=== PATIENT | male | born 1965 | race Caucasian/White ===

== ENCOUNTER → 2018-09-29 15:52 | Outpatient (CLI) | payer OTHER, SELFPAY ==
--- NOTE | 2018-09-29 16:01 | XR_ITS ---
XR ribs LT min 3V w CXR1V HISTORY: Left lower rib/chest pain ITS.REASON: LEFT SIDEDCHEST WALL PAIN ORDERING PHYSICIAN: Bola Archuleta MD PATIENT AGE: 53 years Comparison: None FINDINGS: A frontal view of the chest shows no acute finding. Multiple views of the Left ribs were obtained. No fracture or dislocation. No lytic or blastic change. IMPRESSION: Negative RIBS. If pain persists, consider follow-up exam in 7-[address] with 3-D reformats.
== END ==
PROVIDERS: PCP Family Medicine; Visit Provider Family Medicine
DX: R07.89 Other chest pain (principal)
CPT/HCPCS: 71101

== ENCOUNTER → 2018-10-01 16:18 | Outpatient (CLI) | payer OTHER, SELFPAY ==
[2018-10-01 16:43] LABS: Basophils # 0.1 K/mm3 (0-0.2); Eosinophils # 0.4 K/mm3 (0.0-0.4); Eosinophils % 4.4 % (0.1-12.0); Hematocrit 47.4 % (42.0-52.0); Hemoglobin 15.8 g/dL (14.1-18.0); Lymphocytes # 2.7 K/mm3 (0.7-4.5); Lymphocytes % 31.9 % (10-50); Mean Corpuscular HGB Conc 33.4 g/dL (31.8-35.4); Mean Corpuscular Hemoglobin 27.9 pg (27.0-31.2); Mean Corpuscular Volume 83.6 fl (80-94); Mean Platelet Volume 8.1 fl (7.4-10.4); Monocytes # 0.4 K/mm3 (0.1-1.0); Monocytes % 4.8 % (1.7-9.3); Neutrophils # 4.9 K/mm3 (1.8-7.8); Platelet Count 230 K/mm3 (142-424); Red Blood Count 5.67 M/mm3 (4.60-6.20); Red Cell Distribution Width 13.6 % (11.5-17.5); White Blood Count 8.4 K/mm3 (4.8-10.8)
[2018-10-01 18:52] LABS: Anion Gap 18.6 mEq/L (5-15); Blood Urea Nitrogen 21 mg/dL (7-18); CKMB Relative Index 1.6 U/L (0-4.0); Calcium 9.1 mg/dL (8.5-10.1); Carbon Dioxide 24 mmol/L (21.0-32.0); Chloride 102 mmol/L (98-107); Creatine Kinase 218 U/L (39-308); Creatine Kinase MB 3.5 ng/ml (0.0-3.6); Creatinine,Serum 1.07 mg/dL (0.70-1.30); Estimated Glomerular Filt Rate 72 ml/min (>60); GFR (African American) 87 ML/MIN (>60); Glucose 124 mg/dL (74-106); Potassium 3.6 mmoL/L (3.5-5.1); Sodium 141 mmol/L (136-145); Troponin I < 0.02 ng/ml (0.00-0.06)
== END ==
PROVIDERS: Visit Provider Family Medicine
DX: R07.9 Chest pain, unspecified (principal)
CPT/HCPCS: 36415; 80048; 82550; 82553; 84484; 85025; 93005

== ENCOUNTER → 2018-10-05 13:54 | Outpatient (CLI) | payer OTHER, SELFPAY ==
--- NOTE | 2018-10-05 14:12 | CT_ITS ---
CT angio chest HISTORY: Left-sided chest pain ITS.REASON: CHEST PAIN ORDERING PHYSICIAN: Bola Archuleta MD PATIENT AGE: 53 years COMPARISON: None TECHNIQUE: Axial images obtained following the administration of 75 mL of Optiray 350. Sagittal, and coronal reformatted images are also generated and reviewed. All CT scans at the facility use one or more dose reduction, viz: automated exposure control, ma/kV adjustment per patient size (including targeted exams where dose is matched to indication, i.e. head), or iterative reconstruction technique. FINDINGS: No evidence of pulmonary embolus or aortic aneurysm or dissection. No mediastinal or hilar mass is apparent. No evidence of pericardial effusion. No lobar consolidation or collapse. There is a 6 mm noncalcified nodule in the left lower lobe posterior laterally axial image #75. No central lesions evident. There is evidence of old granulomatous disease with calcified granuloma in the right lower lobe. There is a destructive lesion right paraspinal mass involving the costovertebral junction of the right fifth rib and thoracic vertebra. This mass measures approximately 5 x 3.5 x 3.4 cm and is causing destruction of the right aspect of T4 and T5. The mass does involve the anterolateral epidural space on the right at T5 and extends laterally to involve the medial aspect of the right fifth rib.. No other destructive bony lesions are evident. There are mild degenerative changes in the thoracic spine. There does appear to be a nondisplaced fracture involving the left ninth. Laterally. Upper abdominal images show vicarious excretion of contrast by the gallbladder. IMPRESSION: 1. Right paraspinal mass with bony destruction involving T4 and T5 at the medial aspect of the right fifth rib. This lesion is epicentered at the right or T5 neural foramen. The lesion is fairly well-circumscribed with some ill-definition of the medial borders. A schwannoma/nerve sheath tumor is considered. A more malignant process such as metastatic disease or plasmacytoma is also considered. Recommend MRI of the thoracic spine without and with contrast for further evaluation. 2. Nondisplaced left ninth rib fracture 3. 6 mm noncalcified nodule left lower lobe. Recommend 6 month follow-up
== END ==
PROVIDERS: PCP Family Medicine; Visit Provider Family Medicine
DX: R07.9 Chest pain, unspecified (principal)
CPT/HCPCS: 71275; Q9967

== ENCOUNTER → 2018-10-12 14:59 | Outpatient (CLI) | payer OTHER, SELFPAY ==
--- NOTE | 2018-10-12 15:01 | MR_ITS ---
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 COMPARISON : FINDINGS There is lobulated destructive mass at the right paraspinal region at T4 & T5- This mass involves the right aspect of both the T4 and T5 vertebral bodies and extends into the pedicles of each of these levels.. At T5 the mass continues to involve the right lamina and right costo vertebral junction- . The mass involves the medial portion of the right fifth rib-it appears to expand the structures Overall on today's MR study the mass measures up to 6 cm maximum oblique AP dimension times up to 3.6 cm maximum transverse dimension at T5. On sagittal images it measures up to 4 cm height.. Mass does involve the right neural foramen at T4/5. The mass extends through the right lateral epidural space from T4 to T5., Where it does slightly indents the right aspect thecal sac on right at this level. . modest enhancement of this mass and other masses described below on the postcontrast images. With slightly enhancement intensity than than would've expected, but this may reflect timing of bolus. . There are other lesions in the spine. Which increase concern regarding possible metastatic disease rather than schwannoma, neurofibroma.. These areas described below are low signal on T1 and high signal on T2 with mild enhancement. At T11: is additional up to 2 cm similar signal lesion at the anterior right aspect of T11 vertebral body... Mild enhancement. At T6: There is a 1 cm lesion seen on the anterior left aspect of T6 vertebral body. Mild enhancement T10 to the right.: Tiny Lesion at the junction of vertebral body and right pedicle at the T10 level questionable small metastatic deposit. This measures 5 mm size. Most intense enhancement is seen here T-spine vertebra demonstrate no no compression fractures. The slight decreased height at T10 believe is most likely congenital feature. Minimal Schmorl's node formation. No disc herniation or protrusion. The thoracic cord normal caliber and signal with no abnormal areas of enhancement. There are some subtle decreased signal anterior superior aspect of T1 to both the right and left but this may merely reflect some sclerosis here. Doubt of significance after reviewing CT as well. No axial images through this region. IMPRESSION 1. Large destructive Right paraspinal mass involving the right T4 and T5 vertebral bodies and extending into adjacent structures as detailed in text. (This mass also involves right pedicle of T4 and T5; as well as right right lamina, right transverse process & right costophrenic junction at T5 as well as medial right fifth rib..) The mass is seen extending into right L4/5 neural foramen & extending to the right epidural space to slightly indents the right aspect thecal sac T4/5 2. Today's MR reveals other lesions at the spine: T11.: There is 2 cm lesion at the anterior right aspect of T11 vertebral body T6: There is 1 cm lesion anterior left aspect of T6 vertebral body T10: tiny 5 mm lesion at junction of vertebral body and right pedicle Only mild/moderate enhancement is seen at these areas, somewhat less than that typically would expect for a metastatic process. However given the multiple vertebral involvementsuggest PET CT to further evaluate
--- NOTE | 2018-10-12 15:06 | XR_ITS ---
XR orbit bilateral min 4V Ordering Physician: Bola Archuleta MD Patient Age: 53 years: Male HISTORY: ITS.REASON: RULE OUT METAL FOREIGN BODY FOR MRI Metal in eye prior TECHNIQUE: [place] with patient looking up and looking down. COMPARISON :No previous studies of head FINDINGS The orbits appear within normal limits with no radiopaque foreign body either orbit. Patient cleared for MRI. The visualized. This is an maxillary sinuses appear fairly clear with with no prominent findings. Mastoid air cells clear as well. IMPRESSION. No radiopaque foreign body either orbit. Patient cleared for MRI.
--- NOTE | 2018-10-12 16:57 | HMH.ITSHM ---
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 []ASPIRIN NABUMETONE JANUMET GLIMEPIRIDE PRAVASTATIN AMLODIPINE POTASSIUM CHLORIDE HYDROCHLOROTHIAZIDE FARXIGA VITAMIN D3 MULTI VITAMIN
== END ==
PROVIDERS: PCP Family Medicine; Visit Provider Family Medicine
DX: D43.4 Neoplasm of uncertain behavior of spinal cord (principal); H05.53 Retained (old) foreign body following penetrating wound of bilateral orbits
CPT/HCPCS: 70200; 72157; A9576

== ENCOUNTER → 2018-10-23 17:41 | Outpatient (CLI) | payer OTHER, SELFPAY ==
[2018-10-23 18:18] LABS: Activated Partial Thrombo Time 25.3 seconds (23.6-34.0); INR 1.04 (0.9-1.1); Prothrombin Time 10.7 seconds (9.4-11.8)
[2018-10-23 18:22] LABS: Basophils # 0.1 K/mm3 (0-0.2); Basophils % 1.1 % (0.1-2.0); Eosinophils # 0.4 K/mm3 (0.0-0.4); Eosinophils % 5.3 % (0.1-12.0); Hematocrit 47.2 % (42.0-52.0); Hemoglobin 16.6 g/dL (14.1-18.0); Lymphocytes # 2.7 K/mm3 (0.7-4.5); Lymphocytes % 31.6 % (10-50); Mean Corpuscular HGB Conc 35.2 g/dL (31.8-35.4); Mean Corpuscular Hemoglobin 29.7 pg (27.0-31.2); Mean Corpuscular Volume 84.2 fl (80-94); Mean Platelet Volume 7.8 fl (7.4-10.4); Monocytes # 0.5 K/mm3 (0.1-1.0); Monocytes % 5.3 % (1.7-9.3); Neutrophils # 4.8 K/mm3 (1.8-7.8); Neutrophils % 56.7 % (37.0-80.0); Platelet Count 257 K/mm3 (142-424); Red Blood Count 5.61 M/mm3 (4.60-6.20); Red Cell Distribution Width 13.7 % (11.5-17.5); White Blood Count 8.4 K/mm3 (4.8-10.8)
[2018-10-23 18:31] LABS: Blood Urea Nitrogen 32 mg/dL (7-18); Creatinine,Serum 1.09 mg/dL (0.70-1.30); Estimated Glomerular Filt Rate 70 ml/min (>60); GFR (African American) 85 ML/MIN (>60)
== END ==
PROVIDERS: Visit Provider Family Medicine
DX: Z01.818 Encounter for other preprocedural examination (principal)
CPT/HCPCS: 36415; 82565; 84520; 85025; 85610; 85730

== ENCOUNTER → 2018-10-30 09:48 | Outpatient (CLI) | payer OTHER, SELFPAY ==
--- NOTE | 2018-10-30 09:56 | CT_ITS ---
CT chest wo con, CT biopsy guided needle HISTORY: Right paraspinal mass with bony destructive lesion of T4 and T5 and the right fifth rib ITS.REASON: BIOPSY ORDERING PHYSICIAN: Bola Archuleta MD PATIENT AGE: 53 years COMPARISON: 10/05/2018 Technique: Axial images obtained . All CT scans at the facility use one or more dose reduction, viz: automated exposure control, ma/kV adjustment per patient size (including targeted exams where dose is matched to indication, i.e. head), or iterative reconstruction technique FINDINGS: Prebiopsy CT chest is performed. Once again there is noted a destructive lesion involving the right fifth rib as well as the right aspect of T4 and T5 vertebral body. This is suspicious for malignancy and deemed to be accessible for percutaneous biopsy on the prebiopsy images. The lesion does appear to be extending into the epidural space on the left and anterior to the spinal cord. TECHNIQUE: The patient was placed in the prone position and the lesion localized by routine technique. Timeout was performed. Under aseptic conditions and local anesthesia with buffered lidocaine and 18-gauge introducer needle was inserted. Following this 2 core biopsies were obtained with an indwelling 19-gauge Jesus-Cut needle. There was some bleeding noted on the second biopsy. Good cores were obtained and the biopsy was discontinued. The patient tolerated the procedure well without evidence of immediate complication and left the radiology suite in stable condition. Postbiopsy CT showed no evidence of pneumothorax or paraspinal hematoma. Postbiopsy radiograph showed no evidence of pneumothorax. Pathology: Plasmacytoma. IMPRESSION: Uneventful and successful CT directed biopsy of the mass at T4 and T5 showing a plasmacytoma.
[2018-10-30 10:22] LABS: POC Glucose,Bedside 137 (70-110)
--- NOTE | 2018-10-30 11:32 | XR_ITS ---
XR chest 2V HISTORY: Follow-up biopsy, evaluate for possible pneumothorax ORDERING PHYSICIAN: Bola Archuleta MD PATIENT AGE: 53 years COMPARISON: None FINDINGS: PA and lateral expiration images are obtained showing no evidence of pneumothorax. Vascular crowding is present in the lung bases. Unremarkable cardiovascular structures. IMPRESSION: No acute finding, no evidence of pneumothorax
--- NOTE | 2018-10-30 15:04 | XR_ITS ---
XR chest 2V 1509 hours HISTORY: Follow-up biopsy, evaluate for possible pneumothorax ORDERING PHYSICIAN: Bola Archuleta MD PATIENT AGE: 53 years COMPARISON: Same day FINDINGS: PA and lateral expiration images are obtained showing no evidence of pneumothorax. Vascular crowding is present in the lung bases. Unremarkable cardiovascular structures. IMPRESSION: No acute finding, no evidence of pneumothorax
== END ==
PROVIDERS: PCP Family Medicine; Visit Provider Family Medicine
DX: D48.0 Neoplasm of uncertain behavior of bone and articular cartilage (principal)
CPT/HCPCS: 10009; 71046; 71250; 77012; 82962

== ENCOUNTER → 2018-11-05 16:54 | Outpatient (CLI) | payer OTHER, SELFPAY ==
[2018-11-05 18:19] LABS: Basophils # 0.1 K/mm3 (0-0.2); Basophils % 1.2 % (0.1-2.0); Eosinophils # 0.5 K/mm3 (0.0-0.4); Eosinophils % 5.2 % (0.1-12.0); Hematocrit 45.9 % (42.0-52.0); Hemoglobin 15.6 g/dL (14.1-18.0); Lymphocytes # 2.8 K/mm3 (0.7-4.5); Lymphocytes % 29.5 % (10-50); Mean Corpuscular HGB Conc 33.9 g/dL (31.8-35.4); Mean Corpuscular Hemoglobin 28.5 pg (27.0-31.2); Mean Corpuscular Volume 84.2 fl (80-94); Mean Platelet Volume 8.1 fl (7.4-10.4); Monocytes # 0.5 K/mm3 (0.1-1.0); Monocytes % 5.7 % (1.7-9.3); Neutrophils # 5.6 K/mm3 (1.8-7.8); Neutrophils % 58.4 % (37.0-80.0); Platelet Count 239 K/mm3 (142-424); Red Blood Count 5.45 M/mm3 (4.60-6.20); Red Cell Distribution Width 13.6 % (11.5-17.5); White Blood Count 9.5 K/mm3 (4.8-10.8)
[2018-11-09 13:10] LABS: Albumin 3.8 g/dL (2.9-4.4); Alpha-1-Globulin 0.2 g/dL (0.0-0.4); Alpha-2-Globulin 0.7 g/dL (0.4-1.0); Gamma Globulin 1.1 g/dL (0.4-1.8); Protein, Total 6.9 g/dL (6.0-8.5)
[2018-11-10 15:47] LABS: Albumin, U 4.4 % (.); Alpha-1-Globulin, U 0.7 % (.); Alpha-2-Globulin, U 4.7 % (.); Beta Globulin, U 86.3 % (.); Gamma Globulin, U 3.8 % (.); Protein,Total,Urine 41.7 mg/dL (Not Estab.)
[2018-11-11 07:56] LABS: M-Spike, % Comment: % (Not Observed)
== END ==
PROVIDERS: Visit Provider Family Medicine
DX: C90.20 Extramedullary plasmacytoma not having achieved remission (principal)
CPT/HCPCS: 36415; 84155; 84156; 84165; 84166; 85025

== ENCOUNTER 2019-02-10 05:56 | Emergency (ER) | payer OTHER, SELFPAY ==
[2019-02-10 06:03] VITALS: BP 163/80; PULSE 100; RESP 18; TEMP 36.8; O2SAT 94; BMI 35.9
--- NOTE | 2019-02-10 06:10 | XR_ITS ---
XR chest 2V HISTORY: ITS.REASON: cough ORDERING PHYSICIAN: Kaushal Mejia MD PATIENT AGE: 53 years COMPARISON: 10/30/2018 FINDINGS: The cardiomediastinal silhouette and pulmonary vascularity are within normal limits. On the lateral view there is increased density in the lung base along the thoracic spine region and anterior to the thoracic spine consistent with an area of atelectasis which may be on the right. The patient has a known lesion at T4-T5 which is below limits of resolution on the radiograph. No lobar consolidation or collapse. IMPRESSION: Atelectatic changes in the right lung base posteriorly
--- NOTE | 2019-02-10 06:17 | XR_ITS ---
EXAM: XR thoracic spine 3V HISTORY: Back pain, plasmacytoma of T4-T5 ITS.REASON: pain Comparison: None FINDINGS: Normal alignment. No acute fracture or dislocation. Patient has a known lytic lesion at T4-T5 as seen on previous MRI and CT. This is below limits of resolution on the radiograph and would be better evaluated with MRI. Degenerative changes are present in the thoracic spine. IMPRESSION: Degenerative change, no acute fracture. The destructive lesion seen on previous CT and MRI at T4 and T5 is below limits of resolution on the radiograph and would be better evaluated with CT or MRI if clinically desired
[2019-02-10 06:22] LABS: Basophils # 0.1 K/mm3 (0-0.2); Basophils % 0.6 % (0.1-2.0); Eosinophils # 0.3 K/mm3 (0.0-0.4); Eosinophils % 3.3 % (0.1-12.0); Hematocrit 43.9 % (42.0-52.0); Hemoglobin 14.3 g/dL (14.1-18.0); Lymphocytes # 1.2 K/mm3 (0.7-4.5); Lymphocytes % 12.3 % (10-50); Mean Corpuscular HGB Conc 32.6 g/dL (31.8-35.4); Mean Corpuscular Hemoglobin 27.4 pg (27.0-31.2); Mean Corpuscular Volume 84.1 fl (80-94); Mean Platelet Volume 7.9 fl (7.4-10.4); Monocytes # 0.9 K/mm3 (0.1-1.0); Monocytes % 9.4 % (1.7-9.3); Neutrophils % 74.4 % (37.0-80.0); Platelet Count 145 K/mm3 (142-424); Red Blood Count 5.22 M/mm3 (4.60-6.20); Red Cell Distribution Width 14.2 % (11.5-17.5); White Blood Count 9.3 K/mm3 (4.8-10.8)
[2019-02-10 06:42] LABS: Alanine Aminotransferase 40 U/L (12-78); Albumin Level 2.8 gm/dL (3.4-5.0); Albumin/Globulin Ratio 0.7 (1.1-1.8); Alkaline Phosphatase 97 U/L (46-116); Anion Gap 12.8 mEq/L (5-15); Aspartate Amino Transferase 19 U/L (15-37); Bilirubin,Total 0.7 mg/dL (0.2-1.0); Blood Urea Nitrogen 14 mg/dL (7-18); Calcium 8.2 mg/dL (8.5-10.1); Carbon Dioxide 26 mmol/L (21.0-32.0); Chloride 102 mmol/L (98-107); Creatinine Clearance Estimated 135 mL/min (50-200); Creatinine,Serum 1.05 mg/dL (0.70-1.30); Estimated Glomerular Filt Rate 73 ml/min (>60); GFR (African American) 89 ML/MIN (>60); Globulin 4.1 gm/dl (1.3-3.2); Glucose 195 mg/dL (74-106); Potassium 3.8 mmoL/L (3.5-5.1); Sodium 137 mmol/L (136-145); Total Protein,Serum 6.9 gm/dL (6.4-8.2)
--- NOTE | 2019-02-10 06:52 | HMH.EDGENADL ---
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 Disposition: Home, Self-Care Condition on Discharge: Fair Instructions: DI for Cough -- Adult Additional Instructions: fluids and see pcp for follow up Prescriptions: predniSONE [Prednisone 20mg Tab] 20 mg PO BID #10 tab Benzonatate [Tessalon Perle 100mg Cap] 100 mg PO TID #30 cap Azithromycin [Zithromax 250mg tab] 250 mg PO DIRECTED #6 tab Referrals: Bola Archuleta MD [Primary Care Provider] - - Critical Care Critical Care Time: No Attestation: On 02/10/19, the high probability of a clinically significant, sudden or life threatening deterioration of the following system(s) required my full and direct attention, intervention and personal management. The time I documented below is in addition to time spent performing reported procedures but includes the following listed in this critical care notation. Medical Decision Making - Medical Records Medical records reviewed: Yes: I reviewed the patient's medical records. - Zeyad Inquiry Pt receiving controlled substance: No Vital Signs: 02/10/19 06:03 Temperature 98.3 F Temperature Source Oral Pulse Rate [Right] 100 H Respiratory Rate 18 Blood Pressure [Right Arm] 163/80 H Blood Pressure Mean [Right Arm] 107 Blood Pressure Source [Right Arm] Automatic Cuff Blood Pressure Position [Right Arm] Sitting 02 Sat by Pulse Oximetry 94 L Oxygen Delivery Method Room Air - Lab Data Lab results reviewed: Yes: I reviewed the patient's lab results. Lab Results 02/10/19 06:16: WBC 9.3, RBC 5.22, Hgb 14.3, Hct 43.9, MCV 84.1, MCH 27.4, MCHC 32.6, RDW 14.2, Plt Count 145, MPV 7.9, Neut % (Auto) 74.4, Lymph % (Auto) 12.3, [place] % (Auto) 9.4 H, Eos % (Auto) 3.3, Baso % (Auto) 0.6, Neut # (Auto) 7.0, Lymph # (Auto) 1.2, [place] # (Auto) 0.9, Eos # (Auto) 0.3, Baso # (Auto) 0.1 02/10/19 06:16: Sodium 137, Potassium 3.8, Chloride 102, Carbon Dioxide 26, Anion Gap 12.8, BUN 14, Creatinine 1.05, Estimated Creat Clear 135, Estimated GFR 73, Est GFR ( Amer) 89, Glucose 195 H, Calcium 8.2 L, Total Bilirubin 0.7, AST 19, ALT 40, Alkaline Phosphatase 97, Total Protein 6.9, Albumin 2.8 L, Globulin 4.1 H, Albumin/Globulin Ratio 0.7 L Result diagrams: 02/10/19 06:16 02/10/19 06:16 Orders (Tests/Meds): ED MEDICATIONS Generic Name Dose Route Start Last Admin Trade Name Freq PRN Reason Stop Dose Admin Sodium Chloride 1,000 mls @ 999 mls/hr 02/10/19 06:15 02/10/19 06:16 Sod Chlor 0.9% 1000ml Bag IV 02/10/19 07:15 999 mls/hr .Q1H1M STEPHANI Administration Discontinued Medications Generic Name Dose Route Start Last Admin Trade Name Freq PRN Reason Stop Dose Admin Ketorolac Tromethamine 30 mg 02/10/19 06:10 02/10/19 06:16 Toradol 30mg/Ml Vial IV 02/10/19 06:11 30 mg ONCE ONE Administration Methylprednisolone Sodium Succinate 125 mg 02/10/19 06:10 02/10/19 06:16 Solu-Medrol 125mg/2ml Vial IV 02/10/19 06:11 125 mg ONCE ONE Administration - Radiology Data #1 Image(s): Chest, T-Spine Image Reviewed: Yes I reviewed the patient's radiology image, Yes I reviewed the patient's radiology image w/the ED provider Preliminary Findings: No Fracture Seen General Adult HPI - General Chief complaint: PAIN Stated complaint: cough,cancer on spine,numbness in leg Time Seen by Provider: 02/10/19 06:15 Mode of Arrival: Ambulatory Source of Information: Patient, Medical Record Limitations: No Limitations Description of Symptoms (Recalled from ER Triage Doc. 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
--- NOTE | 2019-02-10 07:10 | PC.NURSE ---
noted patient to be laying in bed,. alert, oriented, responsive. no acute distress noted.
--- NOTE | 2019-02-10 07:16 | ED_ITS ---
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 Disposition: Home, Self-Care Condition on Discharge: Fair Instructions: DI for Cough -- Adult Additional Instructions: fluids and see pcp for follow up Prescriptions: predniSONE [Prednisone 20mg Tab] 20 mg PO BID #10 tab Benzonatate [Tessalon Perle 100mg Cap] 100 mg PO TID #30 cap Azithromycin [Zithromax 250mg tab] 250 mg PO DIRECTED #6 tab Referrals: Bola Archuleta MD [Primary Care Provider] - - Critical Care Critical Care Time: No Attestation: On 02/10/19, the high probability of a clinically significant, sudden or life threatening deterioration of the following system(s) required my full and direct attention, intervention and personal management. The time I documented below is in addition to time spent performing reported procedures but includes the following listed in this critical care notation. Medical Decision Making - Medical Records Medical records reviewed: Yes: I reviewed the patient's medical records. - Zeyad Inquiry Pt receiving controlled substance: No Vital Signs: 02/10/19 06:03 Temperature 98.3 F Temperature Source Oral Pulse Rate [Right] 100 H Respiratory Rate 18 Blood Pressure [Right Arm] 163/80 H Blood Pressure Mean [Right Arm] 107 Blood Pressure Source [Right Arm] Automatic Cuff Blood Pressure Position [Right Arm] Sitting 02 Sat by Pulse Oximetry 94 L Oxygen Delivery Method Room Air - Lab Data Lab results reviewed: Yes: I reviewed the patient's lab results. Lab Results 02/10/19 06:16: WBC 9.3, RBC 5.22, Hgb 14.3, Hct 43.9, MCV 84.1, MCH 27.4, MCHC 32.6, RDW 14.2, Plt Count 145, MPV 7.9, Neut % (Auto) 74.4, Lymph % (Auto) 12.3, [place] % (Auto) 9.4 H, Eos % (Auto) 3.3, Baso % (Auto) 0.6, Neut # (Auto) 7.0, Lymph # (Auto) 1.2, [place] # (Auto) 0.9, Eos # (Auto) 0.3, Baso # (Auto) 0.1 02/10/19 06:16: Sodium 137, Potassium 3.8, Chloride 102, Carbon Dioxide 26, Anion Gap 12.8, BUN 14, Creatinine 1.05, Estimated Creat Clear 135, Estimated GFR 73, Est GFR ( Amer) 89, Glucose 195 H, Calcium 8.2 L, Total Bilirubin 0.7, AST 19, ALT 40, Alkaline Phosphatase 97, Total Protein 6.9, Albumin 2.8 L, Globulin 4.1 H, Albumin/Globulin Ratio 0.7 L Result diagrams: 02/10/19 06:16 02/10/19 06:16 Orders (Tests/Meds): ED MEDICATIONS Generic Name Dose Route Start Last Admin Trade Name Freq PRN Reason Stop Dose Admin Sodium Chloride 1,000 mls @ 999 mls/hr 02/10/19 06:15 02/10/19 06:16 Sod Chlor 0.9% 1000ml Bag IV 02/10/19 07:15 999 mls/hr .Q1H1M STEPHANI Administration Discontinued Medications Generic Name Dose Route Start Last Admin Trade Name Freq PRN Reason Stop Dose Admin Ketorolac Tromethamine 30 mg 02/10/19 06:10 02/10/19 06:16 Toradol 30mg/Ml Vial IV 02/10/19 06:11 30 mg ONCE ONE Administration Methylprednisolone Sodium Succinate 125 mg 02/10/19 06:10 02/10/19 06:16 Solu-Medrol 125mg/2ml Vial IV 02/10/19 06:11 125 mg ONCE ONE Administration
--- NOTE | 2019-02-10 07:38 | PC.NURSE ---
dr tate exited room stating he can go, he is not happy with the care he received and doesn't understand why he would have to be delayed in care for a stroke alert in the next room ; dr tate further stated he himself was waiting on a reading by dr rousseau on the patient's xrays and tried to explain that to him, but patient was adamant he was being neglected.
--- NOTE | 2019-02-10 07:43 | INFXCTL.NOTE ---
pt approached desk demanding his prescriptions. pt rude with staff, stating he was sweating and no one cared. was advised he was afebrile during last assessment. pt laughs and says oh ok , very sarcastic. stated thanks for what care i did receive , was politely told he was welcome and he made his exit out the registration.
[2019-02-10 07:50] VITALS: BP 142/70; PULSE 71; RESP 17; TEMP 36.6; O2SAT 97
== END 2019-02-10 07:41 | disposition home or self-care (01) ==
PROVIDERS: Emergency Provider Emergency Medicine; PCP Family Medicine
DX: J20.9 Acute bronchitis, unspecified (principal); C90.30 Solitary plasmacytoma not having achieved remission; E11.9 Type 2 diabetes mellitus without complications; Z79.84 Long term (current) use of oral hypoglycemic drugs; I10 Essential (primary) hypertension; E78.5 Hyperlipidemia, unspecified
CPT/HCPCS: 71046; 72072; 80053; 85025; 96365; 96375; 99283

== ENCOUNTER 2020-10-16 08:39 | Inpatient (IN) | payer OTHER, SELFPAY ==
[2020-10-16] VITALS (10 sets, daily range): BP systolic 109–145; BP diastolic 63–89; PULSE 74–116; RESP 18–20; TEMP 36.8–36.9; O2SAT 88–98; BMI 38.6; BMI 36.3; BMI 38.5
--- NOTE | 2020-10-16 09:12 | XR_ITS ---
PROCEDURE: XR CHEST PORTABLE CLINICAL HISTORY: cough Cough COMPARISON: CR CXR2V XR chest 2V from 10/30/2018 CR CXR2V XR chest 2V from 10/30/[address] chest wo con from 10/30/2018 CR Chest from 02/10/2019 FINDINGS: There are low lung volumes. Unremarkable cardiovascular structures. Vague density is present in the left mid lung and could be due to vascular crowding and summation artifact. Cannot exclude patchy infiltrate. There is some increased density overlying the T4 and T5 vertebral body which could be due to prior vertebroplasty. IMPRESSION: Low lung volumes with possible left perihilar infiltrate or atelectatic change Dictated by: Israel Flores MD 10/16/2020 10:02 Israel Flores MD in [facility] 10/16/2020 10:02
--- NOTE | 2020-10-16 09:28 | HMH.EDGENADL ---
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 The time I documented below is in addition to time spent performing reported procedures but includes the following listed in this critical care notation. Medical Decision Making - Medical Records Medical records reviewed: Yes: I reviewed the patient's medical records. - Zeyad Inquiry Pt receiving controlled substance: No Vital Signs: 10/16/20 08:41 10/16/20 09:17 10/16/20 09:30 Temperature 98.5 F Temperature Source Oral Pulse Rate [Left Radial] 116 H 109 H 98 H Respiratory Rate 20 20 20 Blood Pressure [Right Arm] 145/89 H 145/89 H 123/68 Blood Pressure Mean [Right Arm] 107 107 86 Blood Pressure Source [Right Arm] Automatic Cuff Blood Pressure Position [Right Arm] Sitting 02 Sat by Pulse Oximetry 91 L 88 L 98 Oxygen Delivery Method Room Air Nasal Cannula Oxygen Flow Rate (LPM) 3 10/16/20 10:00 10/16/20 10:30 10/16/20 11:30 Temperature Temperature Source Pulse Rate [Left Radial] 108 H 101 H 89 Respiratory Rate 20 18 20 Blood Pressure [Right Arm] 119/75 120/63 109/67 L Blood Pressure Mean [Right Arm] 89 82 81 Blood Pressure Source [Right Arm] Blood Pressure Position [Right Arm] 02 Sat by Pulse Oximetry 94 L 90 L 93 L Oxygen Delivery Method Oxygen Flow Rate (LPM) - Lab Data Lab Results 10/16/20 09:13: Specimen Source Right radial, O2 % 3 lpm nc, ABG pH 7.47 H, ABG pCO2 28.8 L, ABG pO2 61.4 L, ABG HCO3 20.4 L, ABG Total CO2 21.3 L, ABG O2 Saturation 92, ABG Base Excess -3.3 L, [place] Test Acceptable 10/16/20 09:25: WBC 4.1 L, RBC 4.82, Hgb 14.1, Hct 42.0, MCV 87.0, MCH 29.2, MCHC 33.5, RDW 15.1, Plt Count 128 L, MPV 8.4, Neut % (Auto) 79.9, Lymph % (Auto) 12.2, [place] % (Auto) 7.3, Eos % (Auto) 0.1, Baso % (Auto) 0.5, Neut # (Auto) 3.3, Lymph # (Auto) 0.5 L, [place] # (Auto) 0.3, Eos # (Auto) 0.0, Baso # (Auto) 0.0 10/16/20 09:25: Sodium 133 L, Potassium 3.0 L, Chloride 100, Carbon Dioxide 22, Anion Gap 14.0, BUN 16, Creatinine 0.90, Estimated Creat Clear 166, Estimated GFR 87, Est GFR ( Amer) 105, Glucose 440 H*, Calcium 8.3 L, Total Bilirubin 0.7, AST 49, ALT 37, Alkaline Phosphatase 71, Total Protein 7.8, Albumin 3.9, Globulin 3.9 H, Albumin/Globulin Ratio 1.0 L, Acetone Level Moderate 10/16/20 11:15: POC Glucose 347 H* Result diagrams: 10/16/20 09:25 10/16/20 09:25 Orders (Tests/Meds): ED MEDICATIONS Discontinued Medications Generic Name Dose Route Start Last Admin Trade Name Freq PRN Reason Stop Dose Admin Acetaminophen 975 mg 10/16/20 09:14 10/16/20 09:42 Acetaminophen 325mg Tab PO 10/16/20 09:15 975 mg ONCE ONE Administration Dexamethasone Sodium Phosphate 10 mg 10/16/20 09:14 10/16/20 09:42 Dexamethasone 4mg/Ml 5ml Mdv IV 10/16/20 09:15 10 mg ONCE ONE Administration Sodium Chloride 1,000 mls @ 999 mls/hr 10/16/20 09:15 10/16/20 09:40 Sod Chlor 0.9% 1000ml Bag IV 10/16/20 10:15 999 mls/hr .Q1H1M STEPHANI Administration Iopamidol 70 ml 10/16/20 10:56 10/16/20 10:57 Iopamidol-370 (76%);100ml Bottle IV 10/16/20 10:57 70 ml ONCE ONE Administration Sodium Chloride 10 ml 10/16/20 10:56 10/16/20 10:57 Sodium Chloride 0.9% 10ml Syr (Rad Only) IV 10/16/20 10:57 10
[2020-10-16 09:34] LABS: Adenovirus,PCR Not Detected (NotDetected); Bordetella Pertussis Not Detected (NotDetected); Chlamydophila Pneumoniae, PCR Not Detected (NotDetected); Coronavirus 229E Not Detected (NotDetected); Coronavirus NL63 Not Detected (NotDetected); Coronavirus OC43 Not Detected (NotDetected); Coronovirus HKU1,PCR Not Detected (NotDetected); Human Metapneumovirus Not Detected (NotDetected); Influenza A, PCR Not Detected (NotDetected); Influenza AH1, 2009 Not Detected (NotDetected); Influenza AH1, PCR Not Detected (NotDetected); Influenza AH3,PCR Not Detected (NotDetected); Influenza B, PCR Not Detected (NotDetected); Mycoplasma Pneumoniae, PCR Not Detected (NotDetected); Parainfluenza 1, PCR Not Detected (NotDetected); Parainfluenza 2, PCR Not Detected (NotDetected); Parainfluenza 3, PCR Not Detected (NotDetected); Parainfluenza 4, PCR Not Detected (NotDetected); Respiratory Syncytial Virus Not Detected (NotDetected); Rhinovirus/Enterovirus Not Detected (NotDetected)
[2020-10-16 09:37] LABS: ABG Base Excess -3.3 mmol/L (-2.4-2.3); ABG HCO3 20.4 mmhg (22.0-26.0); ABG Oxygen Saturation 92 % (90-100); ABG PCO2 28.8 mmhg (35.0-45.0); ABG PH 7.47 mmol/L (7.35-7.45); ABG PO2 61.4 mmhg (80-100); ABG TCO2 21.3 mmhg (23-27)
[2020-10-16 09:40] LABS: Allen's Test Acceptable; Oxygen 3 LPM NC %; Source Right Radial
[2020-10-16 09:42] LABS: Basophils % 0.5 % (0.1-2.0); Chloride 100 mmol/L (98-107); Eosinophils % 0.1 % (0.1-12.0); Hemoglobin 14.1 g/dL (14.1-18.0); Lymphocytes # 0.5 K/mm3 (0.7-4.5); Lymphocytes % 12.2 % (10-50); Mean Corpuscular HGB Conc 33.5 g/dL (31.8-35.4); Mean Corpuscular Hemoglobin 29.2 pg (27.0-31.2); Mean Platelet Volume 8.4 fl (7.4-10.4); Monocytes # 0.3 K/mm3 (0.1-1.0); Monocytes % 7.3 % (1.7-9.3); Neutrophils # 3.3 K/mm3 (1.8-7.8); Neutrophils % 79.9 % (37.0-80.0); Platelet Count 128 K/mm3 (142-424); Red Blood Count 4.82 M/mm3 (4.60-6.20); Red Cell Distribution Width 15.1 % (11.5-17.5); Sodium 133 mmol/L (136-145); White Blood Count 4.1 K/mm3 (4.8-10.8)
[2020-10-16 09:45] LABS: Alanine Aminotransferase 37 U/L (12-78); Albumin Level 3.9 g/dl (3.5-5.0); Alkaline Phosphatase 71 U/L (38-126); Aspartate Amino Transferase 49 U/L (17-59); Bilirubin,Total 0.7 mg/dl (0.2-1.3); Blood Urea Nitrogen 16 mg/dl (9-20); Calcium 8.3 mg/dl (8.4-10.2); Carbon Dioxide 22 mmol/L (22.0-30.0); Creatinine Clearance Estimated 166 mL/min (50-200); Estimated Glomerular Filt Rate 87 ml/min (>60); GFR (African American) 105 ML/MIN (>60); Globulin 3.9 g/dL (1.3-3.2); Total Protein,Serum 7.8 g/dl (6.3-8.2)
[2020-10-16 09:46] LABS: Glucose 440 mg/dl (74-100)
[2020-10-16 09:47] LABS: Acetone, Serum (Rapid) Moderate (None Detect)
--- NOTE | 2020-10-16 10:16 | CT_ITS ---
PROCEDURE: CT ANGIO CHEST CLINCIAL INDICATION: sob Shortness of breath and cough COMPARISON: CT AGCHEST CT angio chest from 10/05/2018 CR XR CHEST PORTABLE from 10/16/2020 TECHNIQUE: IV Contrast: 70ML Isovue 370 Axial images obtained with sagittal and coronal reformats. All CT scans at the facility use one or more dose reduction, viz: automated exposure control, ma/kV adjustment per patient size (including targeted exams where dose is matched to indication, i.e. head), or iterative reconstruction technique. FINDINGS: HEART AND MEDIASTINAL STRUCTURES: No evidence of pulmonary embolus, aortic aneurysm, or aortic dissection. There is few scattered small lymph nodes within the mediastinum. Coronary artery calcifications are present. LUNGS AND PLEURAL SPACES: There are bilateral patchy areas of ground-glass attenuation along with more dense consolidation in the left lower lobe with atelectatic change. These findings are nonspecific but may be seen with Covid19 pneumonia. There is calcified granuloma in the right lower lobe. No effusions are evident. BONY STRUCTURES: Previously noted soft tissue mass of the T4 and T5 vertebral body and right 5th rib is no longer apparent. There has been vertebroplasty at T5 and T6. There is an old fracture involving the medial aspect of the right 5th rib with sclerosis of the costovertebral junction on the right. There is also an old right 10th rib fracture. There has been vertebroplasty also of T12. UPPER ABDOMEN: Fatty liver. Multiple layering stones are present within the gallbladder. ADDITIONAL FINDINGS: No other significant abnormalities. IMPRESSION: 1. No evidence of pulmonary embolus. 2. Bilateral patchy areas of ground-glass infiltrates with more dense consolidation in the left lower lobe with atelectatic changes consistent with bilateral pneumonia. Commonly reported imaging features of Covid19 pneumonia are present. Other processes such is influenza pneumonia and organizing pneumonia, drug toxicity, connective tissue disease, and pulmonary hemorrhage can cause a similar imaging pattern. 3. Prior vertebroplasty at T5-T6 and T12 with old right 5th rib fracture medially. Sclerotic changes are present involving the right 5th rib medially where once there was a lytic lesion and soft tissue mass.. 4. Cholelithiasis Dictated by: Israel Flores MD 10/16/2020 11:20 Israel Flores MD in [place] 10/16/2020 11:20
--- NOTE | 2020-10-16 10:53 | PC.NURSE ---
Radiology established 20 Gauge in LAC for Ct Study
[2020-10-16 11:23] LABS: POC Glucose,Bedside 347 (70-110)
[2020-10-16 11:52] LABS: Coronavirus 19, PCR Detected (NotDetected)
[2020-10-16 12:07] LABS: Lactic Acid 0.9 mmol/L (0.7-2.1)
--- NOTE | 2020-10-16 13:39 | PC.NURSE ---
Report given to Shlomo
--- NOTE | 2020-10-16 13:58 | HMH.HP ---
*Admission Date: 10/16/20 <Li Galaviz - 10/16/20 14:21> *Chief complaint: Shortness of breath <Li Galaviz - 10/16/20 14:21> *History of present illness: Mr. Pathak is a 55-year-old male with a history of type 2 diabetes mellitus, hypertension, hyperlipidemia, multiple myeloma diagnosed in November 2018 status post chemotherapy, radiation ,autologous stem cell transplant, compression fracture multiple with kyphoplasty x3, and DVT of the right leg in 2019 who presented to [facility] emergency room for evaluation after not feeling well for the past week. He describes shortness of breath and some cough. He has experienced weakness and was unable to get out of bed. He is on maintenance chemotherapy now and struggles with diarrhea post infusions. He has not been eating or drinking much in the last 3 to 4 days and has not been able to take his medicines. He denies chest and abdominal pain. He has not vomited. With Evaluation in the emergency room CTA of the chest showed the following: IMPRESSION: 1. No evidence of pulmonary embolus. 2. Bilateral patchy areas of ground-glass infiltrates with more dense consolidation in the left lower lobe with atelectatic changes consistent with bilateral pneumonia. Commonly reported imaging features of Covid19 pneumonia are present. Other processes such is influenza pneumonia and organizing pneumonia, drug toxicity, connective tissue disease, and pulmonary hemorrhage can cause a similar imaging pattern. 3. Prior vertebroplasty at T5-T6 and T12 with old right 5th rib fracture medially. Sclerotic changes are present involving the right 5th rib medially where once there was a lytic lesion and soft tissue mass.. 4. Cholelithiasis Laboratory data indicated positive Covid 19 per PCR. Hemoglobin on CBC was 14.1 with hematocrit of 42 and white blood cell count of 4100. Blood chemistries: Sodium 133 potassium 3 chloride 100 CO2 22. BUN was 16 with a creatinine of 0.9. Glucose was elevated at 440. Lactate was 0.9. Liver function studies were not elevated. ABGs showed a pH of 7.47 PCO2 of 28.8 PO2 of 61.4 and a bicarb of 20.4. This was on oxygen at 3 L/min. He had a moderate level of acetone noted. Also with Evaluation in the emergency room he was noted to be afebrile. He was given dexamethasone 10 mg IV, a liter of IV fluids and then admitted for further evaluation and treatment. At the present time patient wonders why he is being admitted. He still does not feel very well. He has not eated but is not hungry. He feels that his breathing is now better. <Li Galaviz 10/16/20 14:52> [facility] History Medical History: Reports:: Cancer (Multiple myeloma), Deep Vein Thrombosis, Diabetes Mellitus Type 2, Hyperlipidemia, Hypertension Denies:: Diabetes Mellitus Type 1, Internal Pacemaker, Lung Disease, Seizures <Li Galaviz 10/16/20 14:21> *Have you ever received a pneumonia vaccine?: No <Li Galaviz 10/16/20 14:21> *Have you received a flu vaccine this season?: No <Li Galaviz 10/16/20 14:21> Laterality Cases: Bilateral: Tonsillectomy <Li Galaviz 10/16/20 14:21> Other Surgeries: No: Pacemaker <Li Galvaiz 10/16/20 14:21> Comment: Kyphoplasty x3 <Li Galaviz 10/16/20 14:21> - *Social History Smoking Status: Never smoker <Li Galaviz 10/16/20 14:21> Alcohol Intake: never <Li Galaviz 10/16/20 14:21> *Occupational Status:: disabled <Li Galaviz 10/16/20 14:21> *Travel in the last 8 weeks: None <Li Galaviz 10/16/20 14:52> Family Hx:: Coronary Artery Disease, Diabetes <Li Galaviz 10/16/20 14:21> Review of Systems - Constitutional Reports fatigue, Reports fever(s), Reports lack of energy <Li Galaviz 10/16/20 14:21> - Eyes Denies change in vision <Li Galaviz 10/16/20 14:21> - ENT Reports dizziness, Denies ear pain, Denies sore throat <Li Galaviz 10/16/20 14:21> - *Cardiovascular Reports shortness of yony
[2020-10-16 14:43] LABS: Chloride 102 mmol/L (98-107); Potassium 3.4 mmoL/L (3.5-5.1); Sodium 134 mmol/L (136-145)
[2020-10-16 14:46] LABS: Alanine Aminotransferase 39 U/L (12-78); Alkaline Phosphatase 76 U/L (38-126); Anion Gap 17.4 mEq/L (5-15); Aspartate Amino Transferase 51 U/L (17-59); Bilirubin,Total 0.7 mg/dl (0.2-1.3); Blood Urea Nitrogen 16 mg/dl (9-20); Calcium 8.3 mg/dl (8.4-10.2); Carbon Dioxide 18 mmol/L (22.0-30.0); Creatinine Clearance Estimated 166 mL/min (50-200); Estimated Glomerular Filt Rate 87 ml/min (>60); GFR (African American) 105 ML/MIN (>60); Globulin 4.1 g/dL (1.3-3.2); Total Protein,Serum 8.1 g/dl (6.3-8.2)
[2020-10-16 14:48] LABS: Glucose 415 mg/dl (74-100)
[2020-10-16 15:17] LABS: Basophils % 0.5 % (0.1-2.0); Hematocrit 44.7 % (42.0-52.0); Hemoglobin 14.4 g/dL (14.1-18.0); Lymphocytes # 0.4 K/mm3 (0.7-4.5); Lymphocytes % 9.6 % (10-50); Mean Corpuscular HGB Conc 32.1 g/dL (31.8-35.4); Mean Corpuscular Hemoglobin 28.9 pg (27.0-31.2); Mean Platelet Volume 7.9 fl (7.4-10.4); Monocytes # 0.1 K/mm3 (0.1-1.0); Monocytes % 3.4 % (1.7-9.3); Neutrophils # 3.6 K/mm3 (1.8-7.8); Neutrophils % 86.5 % (37.0-80.0); Platelet Count 142 K/mm3 (142-424); Red Blood Count 4.97 M/mm3 (4.60-6.20); Red Cell Distribution Width 15.2 % (11.5-17.5); White Blood Count 4.2 K/mm3 (4.8-10.8)
[2020-10-16 15:18] LABS: MANUAL DIFFERENTIAL MANUAL DIFFERENTIAL (MANUAL DIFF)
[2020-10-16 15:45] LABS: Lymphocytes % 12 % (10-50); Monocytes % 9 % (2-9); Neutrophils % 78 % (42-76); Total Cells Counted 100
[2020-10-16 15:46] LABS: Platelet Estimate Normal; RBC Morphology Normal
[2020-10-16 19:47] LABS: POC Glucose,Bedside 487 (70-110)
--- NOTE | 2020-10-16 19:47 | PC.NURSE ---
HE IS AOX4, ABLE TO MAKE NEEDS KNOWN TO STAFF, 2LNC FOR O2 SUPPORT, DENIES N/V/D, FSBS HAVE BEEN ELEVATED T/O SHIFT, CONSULTED WITH DR HODGE REGARDING ELEVATED FSBS 15 UNITS PER SSI GIVEN AND 15 UNITS ONE TIME DOSE GIVEN PER VERBAL ORDER GIVEN BY DR HODGE. VSS, NO NEEDS VOICED.
[2020-10-16 20:39] LABS: POC Glucose,Bedside 382 (70-110)
[2020-10-17] VITALS (16 sets, daily range): BP systolic 111–135; BP diastolic 63–84; PULSE 70–97; RESP 17–20; TEMP 35.8–36.8; O2SAT 88–93
[2020-10-17 03:39] LABS: Microscopic, Urine URINE MICROSCOPIC (MICROSCOPIC)
[2020-10-17 03:43] LABS: Appearance,Urine CLEAR (Clear); Bilirubin,Urine Negative (Negative); Blood, Urine Negative (Negative); Color,Urine YELLOW (Yellow); Glucose,Urine (UA) 3+ (Negative); Ketones,Urine 1+ (Negative); Leukocyte Esterase,Urine Negative (Negative); Nitrate,Urine Negative (Negative); Protein,Urine 1+ (Negative); Urobilinogen,Urine 0.2 EU/dl (0.2)
[2020-10-17 03:54] LABS: Amorphous Sediment,Urine 1+ /lpf; Bacteria,Urine 1+ /lpf; Mucus,Urine 1+ /lpf
[2020-10-17 04:49] LABS: POC Glucose,Bedside 225 (70-110)
--- NOTE | 2020-10-17 09:14 | HMH.ACPN2 ---
Internal Medicine - PN: Subj *Date: 10/17/20 *Time: 09:14 Interval history: Patient with no new complaints today Exam Vital signs and Labs for Last 24 Hours: Temp Pulse Resp BP Pulse Ox 97.9 F 94 H 18 117/72 90 L 10/17/20 08:00 10/17/20 08:00 10/17/20 08:00 10/17/20 08:00 10/17/20 08:00 Laboratory Results - last 24 hr 10/16/20 09:13: Specimen Source Right radial, O2 % 3 lpm nc, ABG pH 7.47 H, ABG pCO2 28.8 L, ABG pO2 61.4 L, ABG HCO3 20.4 L, ABG Total CO2 21.3 L, ABG O2 Saturation 92, ABG Base Excess -3.3 L, [place] Test Acceptable 10/16/20 09:25: Chlamy pneumoniae PCR Not detected, Adenovirus (PCR) Not detected, B. pertussis DNA (PCR) Not detected, Coronavirus OC43 (PCR) Not detected, Coronavirus HKU1 (PCR) Not detected, Coronavirus 229E (PCR) Not detected, SARS-CoV-2 (PCR) Detected A, Coronavirus NL63 (PCR) Not detected, Human Metapneumovir PCR Not detected, Influenza A (H1) PCR Not detected, Influ A (H1N1/09) PCR Not detected, Influenza A (H3) PCR Not detected, Influenza Type A (PCR) Not detected, Influenza Type B (PCR) Not detected, M. pneumoniae (PCR) Not detected, Parainfluenza 1 (PCR) Not detected, Parainfluenza 2 (PCR) Not detected, Parainfluenza 3 (PCR) Not detected, Parainfluenza 4 (PCR) Not detected, RSV (PCR) Not detected, Entero/Rhino (PCR) Not detected 10/16/20 09:25: WBC 4.1 L, RBC 4.82, Hgb 14.1, Hct 42.0, MCV 87.0, MCH 29.2, MCHC 33.5, RDW 15.1, Plt Count 128 L, MPV 8.4, Neut % (Auto) 79.9, Lymph % (Auto) 12.2, [place] % (Auto) 7.3, Eos % (Auto) 0.1, Baso % (Auto) 0.5, Neut # (Auto) 3.3, Lymph # (Auto) 0.5 L, [place] # (Auto) 0.3, Eos # (Auto) 0.0, Baso # (Auto) 0.0 10/16/20 09:25: Sodium 133 L, Potassium 3.0 L, Chloride 100, Carbon Dioxide 22, Anion Gap 14.0, BUN 16, Creatinine 0.90, Estimated Creat Clear 166, Estimated GFR 87, Est GFR ( Amer) 105, Glucose 440 H*, Calcium 8.3 L, Total Bilirubin 0.7, AST 49, ALT 37, Alkaline Phosphatase 71, Total Protein 7.8, Albumin 3.9, Globulin 3.9 H, Albumin/Globulin Ratio 1.0 L, Acetone Level Moderate 10/16/20 11:15: POC Glucose 347 H* 10/16/20 11:52: Lactate 0.9 10/16/20 14:28: Sodium 134 L, Potassium 3.4 L, Chloride 102, Carbon Dioxide 18 L, Anion Gap 17.4 H, BUN 16, Creatinine 0.90, Estimated Creat Clear 166, Estimated GFR 87, Est GFR ( Amer) 105, Glucose 415 H*, Calcium 8.3 L, Total Bilirubin 0.7, AST 51, ALT 39, Alkaline Phosphatase 76, Total Protein 8.1, Albumin 4.0, Globulin 4.1 H, Albumin/Globulin Ratio 1.0 L 10/16/20 14:58: Blood Type Confirm AB Positive 10/16/20 15:00: WBC 4.2 L, RBC 4.97, Hgb 14.4, Hct 44.7, MCV 90.0, MCH 28.9, MCHC 32.1, RDW 15.2, Plt Count 142, MPV 7.9, Neut % (Auto) 86.5 H, Lymph % (Auto) 9.6 L, [place] % (Auto) 3.4, Eos % (Auto) 0.0 L, Baso % (Auto) 0.5, Neut # (Auto) 3.6, Lymph # (Auto) 0.4 L, [place] # (Auto) 0.1, Eos # (Auto) 0.0, Baso # (Auto) 0.0, Total Counted 100, Neutrophils % (Manual) 78 H, Lymphocytes % (Manual) 12, Atypical Lymphs % 1.0, Monocytes % (Manual) 9, Platelet Estimate Normal, RBC Morphology Normal 10/16/20 15:00: Blood Type AB Positive 10/16/20 18:42: POC Glucose 487 H* 10/16/20 20:33: POC Glucose 382 H* 10/17/20 02:05: Urine Color Yellow, Urine Appearance Clear, Urine pH 6.0, Ur Specific [place] 1.020, Urine Protein 1+, Urine Glucose (UA) 3+, Urine Ketones 1+, Urine Blood Negative, Urine Nitrate Negative, Urine Bilirubin Negative, Urine Urobilinogen 0.2, Ur Leukocyte Esterase Negative, Urine WBC 3-5, Ur Squamous Epith Cells 3-5, Amorphous Sediment 1+, Urine Bacteria 1+, Urine Mucus 1+ 10/17/20 04:38: POC Glucose 225 H Vital Signs - 24 hr 10/16/20 09:17 10/16/20 09:30 10/16/20 10:00 Temperature Pulse Rate Pulse Rate [Left Radial] 109 H 98 H 108 H Respiratory Rate 20 20 20 Blood Pressure Blood Pressure [Right Arm] 145/89 H 123/68 119/75 02 Sat by Pulse Oximetry 88 L 98 94 L 10/16/20 10:30 10/16/20 11:30 10/16/20 14:00 Temperature Pulse Rate Pulse Rate [Left Radial] 101 H 89 Respiratory Rate 18 20 Blood
--- NOTE | 2020-10-17 11:20 | P.CONPHA_ITS ---
[facility] Pharmacy VTE Monitoring - Patient Demographics Admission date: 10/17/20 Report Date: 10/17/20 Time: 11:20 Allergies/Adverse Reactions: Patient Allergies No Known Allergies Allergy (Verified 10/16/20 21:53) Height: 1.83 m Weight: 129 kg Patient Problems: Current Active Problems Plasmacytoma (Chronic) Pneumonia due to COVID-19 virus (Acute) Acute respiratory failure with hypoxia (Acute) Hyperglycemia due to diabetes mellitus (Acute) Acute kidney injury (Acute) Hypokalemia (Acute) Hyperlipidemia (Chronic) Hypertension (Chronic) - VTE Risk Labs: VTE Related Lab Results Hgb 14.4 g/dL (14.1-18.0) 10/16/20 15:00 Hct 44.7 % (42.0-52.0) 10/16/20 15:00 Plt Count 142 K/mm3 (142-424) 10/16/20 15:00 BUN 16 mg/dl (9-20) 10/16/20 14:28 Creatinine 0.90 mg/dl (0.66-1.25) 10/16/20 14:28 Estimated Creat Clear 166 mL/min (50-200) 10/16/20 14:28 Was VTE Risk Assessment Performed: Yes VTE Score: 2 VTE Risk Level: Very Low Risk Clinical Trial Participant: No - Prophylaxis VTE Prophylaxis Ordered?: Yes Types of VTE Prophylaxis: TEDS Knee High, Pharmacological Pharmacologic Type: Enoxaparin
--- NOTE | 2020-10-17 13:37 | HMH.PULMCON ---
*Admission Date: 10/17/20 *Reason for consult:: COVID-19 pneumonia *History of present illness: Mr. Pathak is a 55-year-old male with a history of plasmacytoma status post chemoradiation currently in remission following with Dr. Miramontes at [facility], hypertension, dyslipidemia, diabetes mellitus presented to the hospital today with worsening respiratory failure and found to be COVID-19 positive patient recently tested positive for COVID-19 and he believes that he had acquired COVID-19 from her. Patient denies any subjective fevers or chills or worsening progressive phlegm. Patient is a never smoker and denies any prior respiratory complaints. [facility] History Medical History: Reports:: Cancer (Cancer on his spine.), Deep Vein Thrombosis, Diabetes Mellitus Type 2, Hyperlipidemia, Hypertension Denies:: Diabetes Mellitus Type 1, Internal Pacemaker, Lung Disease, Seizures *Have you ever received a pneumonia vaccine?: No *Have you received a flu vaccine this season?: No Laterality Cases: Bilateral: Tonsillectomy Other Surgeries: Yes: Other (kyphoplasty.). No: Pacemaker Amputation: No Fractures: No - *Social History Last grade of school completed: 9th or 10th Smoking Status: Never smoker Alcohol Intake: never *Occupational Status:: employed *Travel in the last 8 weeks: None Family Hx:: Diabetes, Heart Attack, Hyperlipidemia, Hypertension ROS - Cons Reports body ache(s), Denies anorexia, Denies chills - Eyes Denies blurry vision - ENT Denies bleeding gums - Card Reports shortness of breath with activity, Denies leg swelling - Resp Respiratory: Reports non-productive cough, Reports dyspnea on exertion, Denies excessive phlegm production, Denies coughing up blood, Denies pain on inspiration - GI Gastrointestingal: Reports: system reviewed and no additional complaints, except as docu Meds Home Medications Medication Instructions Recorded Confirmed Type Amlodipine Besylate [Amlodipine 5 mg PO DAILY 10/30/18 10/16/20 History 5mg tab] Glimepiride 8 mg PO DAILY 10/30/18 10/16/20 History Lisinopril/Hydrochlorothiazide 1 tab PO DAILY 10/30/18 10/16/20 History [Lisinopril-Hctz 20-12.5 mg Tab] Multivitamin [Multivitamins] 1 each PO DAILY 10/30/18 10/16/20 History Pravastatin Sodium [Pravachol 40mg 40 mg PO DAILY 10/30/18 10/16/20 History Tablet] Acyclovir [Zovirax] 400 mg PO TID 02/10/19 10/16/20 History Cholecalciferol (Vitamin D3) 2,000 unit PO DAILY 02/10/19 10/17/20 History [Vitamin D3 1,000 Unit Cap] Pantoprazole Sodium [Pantoprazole 20 mg PO DAILY 02/10/19 10/16/20 History 20mg Tab] Sitagliptin Phos/Metformin HCl 1 tab PO BID 02/10/19 10/17/20 History [Janumet 50-1,000 mg Tablet] Lenalidomide [Revlimid] 10 mg PO HS 10/16/20 10/16/20 History Insulin Degludec [Tresiba 15 units SQ BID 10/17/20 10/17/20 History Flextouch U-100] Potassium Chloride [Klor-con 20 20 meq PO DAILY 10/17/20 10/17/20 History mEq tablet] Rivaroxaban [Xarelto 20mg Tablet*] 20 mg PO DAILY 10/17/20 10/17/20 History Allergies Allergy/AdvReac Type Severity Reaction Status Date / Time No Known Allergies Allergy Verified 10/16/20 21:53 Exam - Constitutional Constitutional:: Present: no acute distress, comfortable - HENMT Exam HENMT: Present: atraumatic - Eye Exam Eyes:: Present: eyelids normal - Neck Exam Neck:: Present: thyroid normal - Respiratory Exam Respiratory:: Present: able to speak in complete sentences, no respiratory distress, normal respiratory effort, crackles - Cardiovascular Exam Cardiac:: Present: S1, S2 - GI Exam GI:: Present: soft, no hepatosplenomegaly - Skin Exam Skin: Present: warm, no rash - Neurological Exam Neurological: Present: alert, awake, normal cognition - Extremities Exam Extremities: Present: no cyanosis, no clubbing, no edema - Psychiatric Exam Psychiatric: Present: normal affect Internal Medicine - CN: Reslt - Labs CBC & C
--- NOTE | 2020-10-17 16:53 | PC.NURSE ---
HE IS AOX4, AMBULATING INDEPENDENTLY TO RESTROOM. TOLERATING 3LNC. DENIES N/V/D, ABD IS SOFT AND NON-TENDER, PT STATES THAT HE BECOMES A LITTLE SOB WITH EXERTION, FSBS HAVE BEEN ELEVATED T/O SHIFT, TREATED WITH SSI PER MAR, NO NEEDS AT THIS TIME.
--- NOTE | 2020-10-17 16:58 | PC.NURSE ---
CONTACTED [facility] IN PHARM REGARDING PT HOME MED [facility] NOT HAVING LABEL. [facility] NOT ADMIN.
--- NOTE | 2020-10-17 23:32 | PC.NURSE ---
He is A&Ox4. He ambulates independently with steady gait. He continues on 4LPM n/c. He reports SOA with exertion. He reports a non-productive cough. Turns himself in bed. Reports his last BM was on 10/17.
[2020-10-18 02:31] VITALS: BP 128/76; PULSE 68; RESP 18; TEMP 36.6; O2SAT 91
[2020-10-18 02:32] VITALS: BMI 38.0
--- NOTE | 2020-10-18 05:46 | PC.NURSE ---
He has been awake periodically t/o the night. He requested to ambulate in his room after reports of cramps in his thigh.
[2020-10-18 06:45] VITALS: PULSE 87; PULSE 89; O2SAT 91
[2020-10-18 07:52] LABS: POC Glucose,Bedside 339 (70-110)
[2020-10-18 07:52] LABS: POC Glucose,Bedside 281 (70-110)
[2020-10-18 07:52] LABS: POC Glucose,Bedside 438 (70-110)
[2020-10-18 07:52] LABS: POC Glucose,Bedside 339 (70-110)
[2020-10-18 08:00] VITALS: BP 124/76; PULSE 87; RESP 18; TEMP 36.7; O2SAT 90
--- NOTE | 2020-10-18 09:04 | SW/DCPLANNER ---
RECEIVED AN ORDER FOR THIS PATIENT FOR HOME 02...DISCHARGING FROM [facility] TODAY AND PORTABLE TANK TO BE DELIVERED TO HIS ROOM PRIOR TO HIM LEAVING....
--- NOTE | 2020-10-18 09:13 | HMH.ACPN2 ---
Internal Medicine - PN: Subj *Date: 10/18/20 *Time: 09:13 Interval history: Patient feels better today, has been able to get out of bed and ambulate to restroom. Exam Vital signs and Labs for Last 24 Hours: Temp Pulse Resp BP Pulse Ox 98.0 F 87 18 124/76 90 L 10/18/20 08:00 10/18/20 08:00 10/18/20 08:00 10/18/20 08:00 10/18/20 08:00 Laboratory Results - last 24 hr 10/17/20 11:25: POC Glucose 339 H* 10/17/20 16:25: POC Glucose 438 H* 10/17/20 19:51: POC Glucose 339 H* 10/18/20 04:33: POC Glucose 281 H Vital Signs - 24 hr 10/17/20 10:09 10/17/20 11:56 10/17/20 13:49 Temperature 97.7 F Pulse Rate 82 95 H Pulse Rate [Left Radial] 88 Respiratory Rate 18 Blood Pressure [Right Arm] 112/63 02 Sat by Pulse Oximetry 91 L 10/17/20 13:50 10/17/20 15:57 10/17/20 19:45 Temperature 98.0 F Pulse Rate 85 Pulse Rate [Left Radial] 89 Respiratory Rate 20 Blood Pressure [Right Arm] 120/77 02 Sat by Pulse Oximetry 92 L 93 L 92 L 10/17/20 20:00 10/18/20 02:31 10/18/20 06:45 Temperature 97.6 F 97.8 F Pulse Rate 87 Pulse Rate [Left Radial] 87 68 Respiratory Rate 17 18 Blood Pressure [Right Arm] 135/80 128/76 02 Sat by Pulse Oximetry 93 L 91 L 91 L 10/18/20 08:00 Temperature 98.0 F Pulse Rate Pulse Rate [Left Radial] 87 Respiratory Rate 18 Blood Pressure [Right Arm] 124/76 02 Sat by Pulse Oximetry 90 L I & O for Last 24 hours: Intake & Output 10/15/20 10/16/20 10/17/20 10/18/20 23:59 23:59 23:59 23:59 Intake Total 790 / 790 2710 / 2710 284 / 284 Balance 790 / 790 2710 / 2710 284 / 284 Weight 284 lb 6.341 oz 280 lb 9.6 oz - Constitutional no acute distress - *Routine HEENT Exam Head: Present: normocephalic Eye: Present: EOMI ENT: Present: mucous membranes moist - *Routine Neck Exam Present: supple. Absent: lymphadenopathy - *Routine Respiratory Exam Present: crackles (few bibasilar). Absent: wheezes - *Routine Cardiovascular Exam Present: RRR - *Routine Abdominal Exam Present: soft, normoactive bowel sounds. Absent: tenderness - *Routine Extremities Exam Absent: cyanosis, clubbing, edema - *Routine Skin Exam Present: warm. Absent: rash - *Routine Neurological Exam Present: alert, oriented X3 Assessment and Plan (1) Hypokalemia Status: Acute Category: Medical Code(s): E87.6 - Hypokalemia (2) Hyperlipidemia Status: Chronic Category: Medical Code(s): E78.5 - Hyperlipidemia, unspecified (3) Hypertension Status: Chronic Category: Medical Code(s): I10 - Essential (primary) hypertension (4) Acute respiratory failure with hypoxia Status: Acute Category: Medical Code(s): J96.01 - Acute respiratory failure with hypoxia (5) Hyperglycemia due to diabetes mellitus Status: Acute Category: Medical Code(s): E11.65 - Type 2 diabetes mellitus with hyperglycemia (6) Plasmacytoma Status: Chronic Qualifiers: Plasmacytoma type: unspecified type Plasmacytoma active/remission status: not having achieved remission Qualified Code(s): 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
--- NOTE | 2020-10-18 10:17 | P.PN_ITS ---
Internal Medicine - PN: Subj *Date: 10/18/20 *Time: 10:17 Interval history: No acute respite events overnight. Patient respiratory status continued to improve. Exam - Constitutional Constitutional:: Present: no acute distress, comfortable - HENMT Exam HENMT: Present: normocephalic, atraumatic - Eye Exam Eyes:: Present: eyelids normal - Neck Exam Neck:: Present: thyroid normal - Respiratory Exam Respiratory:: Present: able to speak in complete sentences, no respiratory distress, normal respiratory effort, crackles - Cardiovascular Exam Cardiac:: Present: S1, S2 - GI Exam GI:: Present: soft - Skin Exam Skin: Present: warm, no rash, dry - Neurological Exam Neurological: Present: alert, awake, normal cognition - Extremities Exam Extremities: Present: no cyanosis, no clubbing, no edema - Psychiatric Exam Psychiatric: Present: normal affect Assessment and Plan (1) Hypokalemia Status: Acute Category: Medical Code(s): E87.6 - Hypokalemia (2) Hyperlipidemia Status: Chronic Category: Medical Code(s): E78.5 - Hyperlipidemia, unspe cified (3) Hypertension Status: Chronic Category: Medical Code(s): I10 - Essential (primary) hypertension (4) Acute respiratory failure with hypoxia Status: Acute Category: Medical Code(s): J96.01 - Acute respiratory failure with hypoxia (5) Hyperglycemia due to diabetes mellitus Status: Acute Category: Medical Code(s): E11.65 - Type 2 diabetes mellitus with hyperglycemia (6) Plasmacytoma Status: Chronic Qualifiers: Plasmacytoma type: unspecified type Plasmacytoma active/remission status: not having achieved remission Qualified Code(s): 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 CTA did not show evidence of pulmonary them showed bilateral patchy groundglass opacities left greater than right. No evidence of pleural effusion or volume overload noted. ABG on admission showed hypoxic respiratory failure with respiratory alkalosis. patient admits dry cough which is nonproductive. Patient admission with initiated on ceftriaxone azithromycin along with remdesivir and dexamethasone. Patient respiratory status significantly improved in this hospitalization, initially needing 4 L nasal cannula however improved to 2 L nasal cannula within 24 hours, this morning on 2 L nasal cannula saturating 94% per auscultation with mild crackles. No respiratory distress. Plan: -Continue ceftriaxone medicine for possible community-acquired pneumonia, can de-escalate levofloxacin on discharge -Continue remdesivir and dexamethasone 6 mg daily until discharge -Continue oxygen supplementation with O2 saturation goal of 88 to 92%, will wean as tolerated -Continue Lovenox DVT prophylaxis #Thank you for involving pulmonary in this patient care. We will follow the patient in pulmonary clinic in 4 to 6 weeks with a repeat 6-minute walk testing in the clinic
[2020-10-18 10:21] LABS: Chloride 108 mmol/L (98-107); Potassium 3.2 mmoL/L (3.5-5.1); Sodium 140 mmol/L (136-145)
[2020-10-18 10:24] LABS: Alanine Aminotransferase 35 U/L (12-78); Albumin/Globulin Ratio 1.1 (1.1-1.8); Alkaline Phosphatase 69 U/L (38-126); Anion Gap 12.2 mEq/L (5-15); Aspartate Amino Transferase 43 U/L (17-59); Bilirubin,Total 0.5 mg/dl (0.2-1.3); Blood Urea Nitrogen 18 mg/dl (9-20); Carbon Dioxide 23 mmol/L (22.0-30.0); Creatinine Clearance Estimated 183 mL/min (50-200); Estimated Glomerular Filt Rate 100 ml/min (>60); GFR (African American) 121 ML/MIN (>60); Globulin 3.7 g/dL (1.3-3.2); Total Protein,Serum 7.7 g/dl (6.3-8.2)
[2020-10-18 10:25] LABS: Calcium 8.2 mg/dl (8.4-10.2); Glucose 284 mg/dl (74-100)
[2020-10-18 11:09] LABS: POC Glucose,Bedside 314 (70-110)
--- NOTE | 2020-10-18 12:50 | HMH.DCSUM ---
General - General Admission date:: 10/16/20 Discharge date: 10/18/20 HPI HPI: Mr. Pathak is a 55-year-old male with a history of type 2 diabetes mellitus, hypertension, hyperlipidemia, multiple myeloma diagnosed in November 2018 status post chemotherapy, radiation ,autologous stem cell transplant, compression fracture multiple with kyphoplasty x3, and DVT of the right leg in 2019 who presented to [facility] emergency room for evaluation after not feeling well for the past week. He describes shortness of breath and some cough. He has experienced weakness and was unable to get out of bed. He is on maintenance chemotherapy now and struggles with diarrhea post infusions. He has not been eating or drinking much in the last 3 to 4 days and has not been able to take his medicines. He denies chest and abdominal pain. He has not vomited. With Evaluation in the emergency room CTA of the chest showed the following: IMPRESSION: 1. No evidence of pulmonary embolus. 2. Bilateral patchy areas of ground-glass infiltrates with more dense consolidation in the left lower lobe with atelectatic changes consistent with bilateral pneumonia. Commonly reported imaging features of Covid19 pneumonia are present. Other processes such is influenza pneumonia and organizing pneumonia, drug toxicity, connective tissue disease, and pulmonary hemorrhage can cause a similar imaging pattern. 3. Prior vertebroplasty at T5-T6 and T12 with old right 5th rib fracture medially. Sclerotic changes are present involving the right 5th rib medially where once there was a lytic lesion and soft tissue mass.. 4. Cholelithiasis Laboratory data indicated positive Covid 19 per PCR. Hemoglobin on CBC was 14.1 with hematocrit of 42 and white blood cell count of 4100. Blood chemistries: Sodium 133 potassium 3 chloride 100 CO2 22. BUN was 16 with a creatinine of 0.9. Glucose was elevated at 440. Lactate was 0.9. Liver function studies were not elevated. ABGs showed a pH of 7.47 PCO2 of 28.8 PO2 of 61.4 and a bicarb of 20.4. This was on oxygen at 3 L/min. He had a moderate level of acetone noted. Also with Evaluation in the emergency room he was noted to be afebrile. He was given dexamethasone 10 mg IV, a liter of IV fluids and then admitted for further evaluation and treatment. At the present time patient wonders why he is being admitted. He still does not feel very well. He has not eaten and is not hungry. He feels that his breathing is now better. Hospital Course Hospital Course: The patient was admitted and started on Covid protocol. He was also started on duo nebs and antibiotics for his pneumonia and pulmonology was consulted. He received convalescent plasma. Pulmonology felt he should be continued on all of his current medications and his antibiotics could be de-escalating to Levaquin upon discharge. He also recommended initiating dexamethasone 6 mg daily until discharge. By 10/18/2020, the patient was feeling better and was able to get up out of bed and ambulate around his room. He was doing well on 2 L of supplemental oxygen and it was felt he was stable to be discharged. He will follow-up with pulmonology in 4 to [address] Archuleta. Objective Vital signs: Temp Pulse Resp BP Pulse Ox 98.0 F 87 18 124/76 90 L 10/18/20 08:00 10/18/20 08:00 10/18/20 08:00 10/18/20 08:00 10/18/20 08:00 Narrative: - Constitutional no acute distress Comments: Appears not to feel well - *Routine HEENT Exam Head: Present: normocephalic, atraumatic Eye: Present: PERRL. Absent: conjunctival icterus, scleral injection ENT: Present: nares patent - *Routine Neck Exam Present: supple, full ROM. Absent: carotid bruit, lymphadenopathy, thyromegaly - *Routine Respiratory Exam Present: diminished air movement (Posteriorly; faint crackles in bases although very poor breath sounds.) - *Routine Cardiovascular
== END 2020-10-18 11:51 | disposition home or self-care (01) | DRG 177 ==
LOC: ER 11:48 → ICU 12:43
PROVIDERS: Internal Medicine Pulmonary Disease; Admitting Provider Family Medicine; Emergency Provider Emergency Medicine; PCP Family Medicine; Visit Provider Family Medicine
DX: U07.1 COVID-19 (principal); J12.82 Pneumonia due to coronavirus disease 2019; J96.01 Acute respiratory failure with hypoxia; C90.30 Solitary plasmacytoma not having achieved remission; Z94.84 Stem cells transplant status; E87.6 Hypokalemia; E11.65 Type 2 diabetes mellitus with hyperglycemia; Z79.4 Long term (current) use of insulin; Z79.01 Long term (current) use of anticoagulants; I10 Essential (primary) hypertension; E78.5 Hyperlipidemia, unspecified; Z86.718 Personal history of other venous thrombosis and embolism; Z79.899 Other long term (current) drug therapy
CPT/HCPCS: 36415; 71045; 71275; 80053; 81001; 82009; 82803; 82962; 83605; 85007; 85025; 86900; 86901; 87581; 87633; 87798; 94640; 94761; 96365; 96375; 99284; J0456; P9017; Q9967

== ENCOUNTER 2021-07-03 05:49 | Emergency (ER) | payer OTHER, SELFPAY ==
[2021-07-03 05:50] VITALS: BP 139/80; PULSE 94; RESP 16; TEMP 36.9; O2SAT 97; BMI 38.3
[2021-07-03 05:53] VITALS: BMI 38.0
--- NOTE | 2021-07-03 05:54 | XR_ITS ---
PROCEDURE INFORMATION: Exam: XR Chest Exam date and time: 07/03/2021 5:54 AM Age: 56 years old Clinical indication: Cough and other: Chest congestion; Additional info: Cough, chest congestion TECHNIQUE: Imaging protocol: XR of the chest. Views: 2 views. COMPARISON: CR XR CHEST PORTABLE 10/16/2020 9:34 AM FINDINGS: Lungs: No acute infiltrate. Pleural spaces: No pleural effusion. Heart/Mediastinum: No cardiomegaly. Diaphragm: Asymmetric elevation of the right hemidiaphragm. Bones/joints: Multifocal osteosclerosis in the thoracic spine, suggesting vertebroplasty. IMPRESSION: 1. No acute infiltrate. 2. Multifocal osteosclerosis in the thoracic spine, suggesting vertebroplasty.
--- NOTE | 2021-07-03 05:56 | ECG_ITS ---
APPROVED REPORT Exam: Resting ECG HR:83 bpm ECG Measurements Heart Rate 83 AXES AL 178 P 21 QRSd 94 QRS -15 QT 380 T 11 QTc 446 Conclusion Normal sinus rhythm Normal ECG Electronically signed by : Juan Carlos Anne MD 07/06/2021 13:56:55
[2021-07-03 06:17] LABS: Basophils # 0.1 K/mm3 (0-0.2); Basophils % 1.6 % (0.1-2.0); Eosinophils # 0.4 K/mm3 (0.0-0.4); Hematocrit 49.2 % (42.0-52.0); Hemoglobin 15.4 g/dL (14.1-18.0); Lymphocytes # 0.7 K/mm3 (0.7-4.5); Mean Corpuscular HGB Conc 31.3 g/dL (31.8-35.4); Mean Corpuscular Hemoglobin 28.6 pg (27.0-31.2); Mean Corpuscular Volume 91.4 fl (80-94); Monocytes # 0.4 K/mm3 (0.1-1.0); Monocytes % 9.3 % (1.7-9.3); Neutrophils # 2.7 K/mm3 (1.8-7.8); Neutrophils % 63.2 % (37.0-80.0); Platelet Count 155 K/mm3 (142-424); Red Blood Count 5.39 M/mm3 (4.60-6.20); Red Cell Distribution Width 15.8 % (11.5-17.5); White Blood Count 4.3 K/mm3 (4.8-10.8)
--- NOTE | 2021-07-03 06:19 | HMH.EDURI ---
ED Disposition Clinical Impression: Bronchitis, Hyperglycemia due to diabetes mellitus Disposition: Home, Self-Care Condition on Discharge: Good Instructions: DI for Acute Bronchitis Additional Instructions: fluids and see pcp for follow up Prescriptions: Azithromycin [Zithromax 250mg tab] 250 mg PO DIRECTED #6 tab Transmission Status: Pending to [id number] Referrals: Bola Archuleta MD [Primary Care Provider] - - Critical Care Critical Care Time: No Attestation: On 07/03/21, the high probability of a clinically significant, sudden or life threatening deterioration of the following system(s) required my full and direct attention, intervention and personal management. The time I documented below is in addition to time spent performing reported procedures but includes the following listed in this critical care notation. Medical Decision Making - Medical Records Medical records reviewed: Yes: I reviewed the patient's medical records. - Zeyad Inquiry Pt receiving controlled substance: No Vital Signs: 07/03/21 05:50 Temperature 98.4 F Temperature Source Oral Pulse Rate [Left] 94 H Respiratory Rate 16 Blood Pressure [Right Arm] 139/80 Blood Pressure Mean [Right Arm] 99 02 Sat by Pulse Oximetry 97 - Lab Data Lab results reviewed: Yes: I reviewed the patient's lab results. Lab Results 07/03/21 06:01: WBC 4.3 L, RBC 5.39, Hgb 15.4, Hct 49.2, MCV 91.4, MCH 28.6, MCHC 31.3 L, RDW 15.8, Plt Count 155, MPV 9.0, Neut % (Auto) 63.2, Lymph % (Auto) 16.0, Hartley % (Auto) 9.3, Eos % (Auto) 10.0, Baso % (Auto) 1.6, Neut # (Auto) 2.7, Lymph # (Auto) 0.7, Hartley # (Auto) 0.4, Eos # (Auto) 0.4, Baso # (Auto) 0.1, ESR 19 07/03/21 06:01: Sodium 139, Potassium 3.5, Chloride 103, Carbon Dioxide 29, Anion Gap 10.5, BUN 12, Creatinine 0.80, Estimated Creat Clear 181, Estimated GFR 99, Est GFR ( Amer) 120, Glucose 275 H, Calcium 8.8, Magnesium 1.7, Total Bilirubin 0.5, AST 27, ALT 25, Alkaline Phosphatase 62, Troponin I < 0.01, C-Reactive Protein 18.5 H, Total Protein 7.5, Albumin 4.1, Globulin 3.4 H, Albumin/Globulin Ratio 1.2, Procalcitonin 0.183 07/03/21 06:01: NT-Pro-B Natriuret Pep 144 H 07/03/21 06:07: SARS-CoV-2 (PCR) Not detected, Influenza A Untype (PCR) Not detected, Influenza Type B (PCR) Not detected Result diagrams: 07/03/21 06:01 07/03/21 06:01 Orders (Tests/Meds): ORDERS Category Date Time Status Troponin I Q3H Lab 07/03/21 09:00 Ordered Troponin I Q3H Lab 07/03/21 12:00 Ordered 12-lead EKG Request [ECG Request by /Dangelo] Stat Y 07/03/21 05:54 Ordered - Radiology Data #1 Image(s): Chest Image Reviewed: Yes I have reviewed radiologist's interpretation Preliminary Findings: Normal/NAD - ECG Data Tracing #1 Normal Sinus Rhythm: Yes Ischemic changes: non-specific ST-T wave changes Medical Decision Narrative: has bronchitis and stable labs and xray URI/Sore Throat HPI - General Chief Complaint: Upper Respiratory Infection Stated Complaint: cough Time Seen by Provider: 07/03/21 06:10 Mode of Arrival: Ambulatory Source of Information: Patient, Medical Record Limitations: No Limitations Description of Symptoms (Recalled from ER Triage Doc. by RN): chest sore after coughing - History of Present Illness HPI Narrative: pt with cough and congestion over the last few days MD Complaint: fever, cough Onset (ago): day(s) Duration: intermittent Severity: moderate Able to tolerate fluids by mouth: Yes Associated symptoms: denies other symptoms Treatments prior to arrival: none - Related Data Home Medications Medication Instructions Recorded Confirmed Amlodipine Besylate [Amlodipine 5 mg PO DAILY 10/30/18 07/03/21 5mg tab] Glimepiride 8 mg PO DAILY 10/30/18 07/03/21 Lisinopril/Hydrochlorothiazide 1 tab PO DAILY 10/30/18 07/03/21 [Lisinopril-Hctz 20-12.5 mg Tab*] Pravastatin Sodium [Pravachol 40mg 40 mg PO DAILY 10/30/18 07/03/21 Tablet]
[2021-07-03 06:27] LABS: Alanine Aminotransferase 25 U/L (12-78); Albumin Level 4.1 g/dl (3.5-5.0); Albumin/Globulin Ratio 1.2 (1.1-1.8); Alkaline Phosphatase 62 U/L (38-126); Anion Gap 10.5 mEq/L (5-15); Aspartate Amino Transferase 27 U/L (17-59); Bilirubin,Total 0.5 mg/dl (0.2-1.3); Blood Urea Nitrogen 12 mg/dl (9-20); Calcium 8.8 mg/dl (8.4-10.2); Carbon Dioxide 29 mmol/L (22.0-30.0); Chloride 103 mmol/L (98-107); Creatinine Clearance Estimated 181 mL/min (50-200); Estimated Glomerular Filt Rate 99 ml/min (>60); GFR (African American) 120 ML/MIN (>60); Globulin 3.4 g/dL (1.3-3.2); Glucose 275 mg/dl (74-100); Magnesium 1.7 mg/dl (1.6-2.3); Potassium 3.5 mmoL/L (3.5-5.1); Sodium 139 mmol/L (136-145); Total Protein,Serum 7.5 g/dl (6.3-8.2)
[2021-07-03 06:33] LABS: C-Reactive Protein 18.5 mg/L (0-4)
[2021-07-03 06:40] LABS: NT Pro Brain Natriuretic Pep. 144 pg/mL (0-125); Troponin I < 0.01 ng/ml (0.00-0.034)
[2021-07-03 06:44] LABS: Procalcitonin 0.183 ng/mL (0.0-2.0)
[2021-07-03 06:49] LABS: Coronavirus 19, PCR Not Detected (NotDetected); Influenza A, PCR Not Detected (NotDetected); Influenza B, PCR Not Detected (NotDetected)
[2021-07-03 07:08] LABS: Erythrocyte Sedimentation Rate 19 mm/hr (0-20)
--- NOTE | 2021-07-03 07:17 | PC.NURSE ---
2 min left on covid swab
[2021-07-03 07:58] VITALS: BP 127/87; PULSE 78; RESP 16; TEMP 36.6; O2SAT 98
== END 2021-07-03 07:59 | disposition home or self-care (01) ==
PROVIDERS: Emergency Provider Emergency Medicine; PCP Family Medicine
DX: J20.9 Acute bronchitis, unspecified (principal); E11.65 Type 2 diabetes mellitus with hyperglycemia; Z20.822 Contact with and (suspected) exposure to COVID-19; I10 Essential (primary) hypertension; E78.5 Hyperlipidemia, unspecified
CPT/HCPCS: 71046; 80053; 83735; 83880; 84145; 84484; 85025; 85651; 86140; 93005; 99283; C9803; U0003; U0005

== ENCOUNTER 2022-11-21 15:13 | Emergency (ER) | payer OTHER, SELFPAY ==
[2022-11-21 15:15] VITALS: BP 139/71; PULSE 104; RESP 17; TEMP 37.4; O2SAT 93; BMI 40.6
--- NOTE | 2022-11-21 15:18 | HMH.EDGENADL ---
Discharge Plan Disposition Patient Disposition: Home, Self-Care Prescriptions Prescriptions: New Paxlovid (EUA) 300 mg (150 mg x 2)-100 mg tablets,dose pack See Rx Instructions .ROUTE .COMPLEX Qty: 30 0RF Rx Instructions: take TWO 150 mg tablets of nirmatrelvir with ONE 100 mg tablet of ritonavir twice daily for 5 days azithromycin 250 mg tablet See Rx Instructions .ROUTE .COMPLEX Qty: 6 0RF Rx Instructions: For 250 mg dose pack: take 500 mg today (day 1), then 250 mg for 4 days (days 2-5) No Action pravastatin 40 MG tablet 40 mg PO DAILY glimepiride 4 MG tablet 8 mg PO DAILY lisinopril-hydrochlorothiazide 1 EACH tablet 1 tab PO DAILY amlodipine 5 MG tablet 5 mg PO DAILY cholecalciferol (vitamin D3) 1,000 UNIT capsule 2,000 unit PO DAILY sitagliptin phos-metformin 1 EACH tablet 1 tab PO BID Rx Instructions: 50/1000mg acyclovir 400 MG tablet 400 mg PO TID lenalidomide 10 MG capsule 10 mg PO HS rivaroxaban 20 MG tablet 20 mg PO DAILY potassium chloride 20 MEQ tablet 20 meq PO DAILY insulin degludec 100 UNIT/ML insulin pen 15 units SQ BID azithromycin 250 MG tablet 250 mg PO DIRECTED Qty: 6 0RF Rx Instructions: Take two (2) tablets on day #1, then one (1) tablet day #2 thru #5 Referrals Follow up/Referrals: Bola Archuleta MD [Primary Care Provider] - See instructions Activity Restrictions/Add. Instructions Additional Instructions/Restrictions: You had focal abnormal lung sounds on your lung exam with a high fever no significant lung consolidation on chest x-ray however we will treat for community-acquired pneumonia with azithromycin. Additionally you are positive for COVID-19 which is likely the cause of all of your symptoms and will treat you with Paxlovid because you are high risk with multiple myeloma. If your oxygen saturations drop below 88% persistently at home please return to the emergency department otherwise follow-up with primary care doctor within 1 week. Clinical Impressions Clinical Impression: COVID-19, CAP (community acquired pneumonia) Discharge ED Provider: Micheline Clarke General Adult HPI General Chief complaint: Upper Respiratory Infection Stated complaint: temp 102.4, heron,cough Time Seen by Provider: 11/21/22 15:18 History of Present Illness HPI narrative: Patient is a 57-year-old male with a history of multiple myeloma in remission who gets intermittent infusions for his cancer here today with cough and fever and sneezing over the last 3 days. States that his made him come to the emergency department he did not want to. Has a home pulse oximeter and his pulse ox has been in the mid 90s. He is not significantly dyspneic. Denies any throat pain ear pain urinary symptoms rash or any other infectious symptoms. Is vaccinated for flu and COVID. Denies any smoking or history of any cardiopulmonary diseases. Related Data Home Medications Medication Instructions Recorded Confirmed amlodipine 5 mg tablet 5 mg PO DAILY blood pressure 10/30/18 07/03/21 glimepiride 4 mg tablet 8 mg PO DAILY Diabetes 10/30/18 07/03/21 lisinopril 20 1 tab PO DAILY blood pressure 10/30/18 07/03/21 mg-hydrochlorothiazide 12.5 mg tablet pravastatin 40 mg tablet 40 mg PO DAILY Cholesterol 10/30/18 07/03/21 acyclovir 400 mg tablet 400 mg PO TID antiviral 02/10/19 07/03/21 cholecalciferol (vitamin D3) 25 2,000 unit PO DAILY Diet supplement 02/10/19 07/03/21 mcg (1,000 unit) capsule sitagliptin phosphate 50 1 tab PO BID Diabetes 02/10/19 07/03/21 mg-metformin 1,000 mg tablet lenalidomide 10 mg capsule 10 mg PO HS CHEMO 10/16/20 07/03/21 insulin degludec 100 unit/mL (3 15 units SQ BID Diabetes 10/17/20 07/03/21 mL) subcutaneous pen potassium chloride 20 mEq 20 meq PO DAILY potassium 10/17/20 07/03/21 tablet,extended release(part/cryst) replacement rivaroxaban 20 mg tablet 20
--- NOTE | 2022-11-21 15:24 | XR_ITS ---
FINAL REPORT CLINICAL HISTORY: cough, fever patient states he was diagnosed with cancer on spine 3 years ago and is in remission, takes chemo pill daily COMPARISON: 07/03/2021 FINDINGS: PA and lateral views of the chest are obtained. There is no prior exam for comparison. The cardiac and mediastinal silhouettes are within normal limits. There are low lung volumes. The lungs are otherwise clear. There is no pleural effusion, pneumothorax, or acute osseous abnormality. IMPRESSION: No radiographic evidence of acute cardiac or pulmonary disease. Reviewed, Interpreted and Dictated by Barb Beck MD Transcribed by Kanika Thompson Authenticated and . [facility]
[2022-11-21 15:33] LABS: Influenza A, PCR Not Detected (NotDetected); Influenza B, PCR Not Detected (NotDetected)
[2022-11-21 15:59] LABS: Coronavirus 19, PCR Detected (NotDetected)
[2022-11-21 16:42] VITALS: BP 128/68; PULSE 102; RESP 22; O2SAT 90
[2022-11-21 17:02] VITALS: BP 128/68; PULSE 94; RESP 20; TEMP 37.4; O2SAT 88
[2022-11-21 17:14] LABS: POC Glucose,Bedside 241 (70-110)
--- NOTE | 2022-11-22 09:44 | PC.NURSE ---
follow up call with pt at this time. Pt reports continuing monitoring his oxygen level at home. States he has spoken with his pcp Dr. Archuleta who he states he has discussed getting oxygen for his home so they are watching oxygen saturation. Asked pt to return to ER for any new or concerning symptoms, asked pt to have a low thresh hold for returning to the ER for evaluation, pt verbalized understanding.
== END 2022-11-21 17:02 | disposition home or self-care (01) ==
PROVIDERS: Emergency Provider Student in an Organized Health Care Education/Training Program; PCP Family Medicine
DX: U07.1 COVID-19 (principal); R09.02 Hypoxemia; J18.9 Pneumonia, unspecified organism; C90.01 Multiple myeloma in remission
CPT/HCPCS: 71046; 82962; 99284; 99285; C9803; U0003; U0005

== ENCOUNTER → 2022-11-25 16:49 | Outpatient (CLI) | payer OTHER, SELFPAY ==
--- NOTE | 2022-11-25 16:54 | XR_ITS ---
PROCEDURE INFORMATION: Exam: XR Chest Exam date and time: 11/25/2022 4:55 PM Age: 57 years old Clinical indication: Condition or disease; Lung condition and disease; Pneumonia; Other: Community acquired per patient m. D. Prior surgery; Surgery date: 6+ months; Surgery type: Spinal cancer; Additional info: Community acquired pneumonia TECHNIQUE: Imaging protocol: Radiologic exam of the chest. Views: 2 views. COMPARISON: CR XR CHEST 2V 11/21/2022 3:21 PM FINDINGS: Lungs: Bibasilar subsegmental atelectasis, greater on the left. No acute airspace consolidation. Pleural spaces: Unremarkable. No pleural effusion. No pneumothorax. Heart/Mediastinum: Normal heart size. Bones/joints: Multilevel thoracic vertebroplasty. IMPRESSION: Bibasilar atelectasis.
[2022-11-25 17:16] LABS: Basophils # 0.1 K/mm3 (0-0.2); Basophils % 1.2 % (0.1-2.0); Eosinophils % 0.6 % (0.1-12.0); Hematocrit 43.1 % (42.0-52.0); Lymphocytes # 0.8 K/mm3 (0.7-4.5); Lymphocytes % 12.9 % (10-50); Mean Corpuscular HGB Conc 32.5 g/dL (31.8-35.4); Mean Corpuscular Hemoglobin 28.6 pg (27.0-31.2); Mean Corpuscular Volume 88.2 fl (80-94); Mean Platelet Volume 8.1 fl (7.4-10.4); Monocytes # 0.6 K/mm3 (0.1-1.0); Monocytes % 8.9 % (1.7-9.3); Neutrophils # 4.9 K/mm3 (1.8-7.8); Neutrophils % 76.3 % (37.0-80.0); Platelet Count 315 K/mm3 (142-424); Red Blood Count 4.89 M/mm3 (4.60-6.20); Red Cell Distribution Width 15.6 % (11.5-17.5); White Blood Count 6.4 K/mm3 (4.8-10.8)
== END ==
PROVIDERS: PCP Family Medicine; Visit Provider Family Medicine
DX: J18.9 Pneumonia, unspecified organism; U07.1 COVID-19
CPT/HCPCS: 36415; 71046; 85025

== ENCOUNTER → 2022-11-28 10:25 | Outpatient (CLI) | payer OTHER, SELFPAY ==
--- NOTE | 2022-11-28 10:30 | XR_ITS ---
FINAL REPORT CLINICAL HISTORY: COUGH COMPARISON: 11/25/2022 FINDINGS: TWO-VIEW CHEST The heart size is normal. The mediastinum is normal. There is linear opacity at the left base, favor atelectasis. This is improved since previous. There is no pneumothorax. There are postoperative changes from prior kyphoplasties involving 2 midthoracic vertebrae. IMPRESSION: Improved left base atelectasis. Reviewed, Interpreted and Dictated by Jaron Cordon MD Transcribed by Li Oquendo Authenticated and [facility]
== END ==
PROVIDERS: PCP Family Medicine; Visit Provider Family Medicine
DX: R05.9 Cough, unspecified (principal)
CPT/HCPCS: 71046

== ENCOUNTER 2023-04-07 18:51 | Emergency (ER) | payer OTHER, SELFPAY ==
[2023-04-07 19:14] VITALS: BP 133/66; PULSE 83; RESP 16; TEMP 37.2; O2SAT 100
--- NOTE | 2023-04-07 19:15 | PC.NURSE ---
Pt placed in triage room per Sesar Roach. Pt vitals obtained. Pt in no apparent distress at this time.
[2023-04-07 19:27] VITALS: BP 133/66; PULSE 83; RESP 16; TEMP 37.2; O2SAT 100; BMI 45.6
--- NOTE | 2023-04-07 19:46 | PC.NURSE ---
Pt stuck for blood cultures 1 set from LAC, 1 set from RFA
[2023-04-07 19:51] LABS: Basophils # 0.1 K/mm3 (0-0.2); Basophils % 1.6 % (0.1-2.0); Eosinophils # 0.4 K/mm3 (0.0-0.4); Eosinophils % 7.5 % (0.1-12.0); Hematocrit 45.4 % (42.0-52.0); Hemoglobin 14.8 g/dL (14.1-18.0); Lymphocytes % 18.8 % (10-50); Mean Corpuscular HGB Conc 32.5 g/dL (31.8-35.4); Mean Corpuscular Hemoglobin 29.5 pg (27.0-31.2); Mean Corpuscular Volume 90.7 fl (80-94); Mean Platelet Volume 8.7 fl (7.4-10.4); Monocytes # 0.4 K/mm3 (0.1-1.0); Monocytes % 7.1 % (1.7-9.3); Neutrophils # 3.3 K/mm3 (1.8-7.8); Neutrophils % 64.9 % (37.0-80.0); Platelet Count 167 K/mm3 (142-424); Red Cell Distribution Width 15.5 % (11.5-17.5); White Blood Count 5.1 K/mm3 (4.8-10.8)
[2023-04-07 20:10] LABS: Alanine Aminotransferase 40 U/L (12-78); Albumin Level 3.9 g/dl (3.5-5.0); Albumin/Globulin Ratio 1.1 (1.1-1.8); Alkaline Phosphatase 58 U/L (38-126); Anion Gap 14.3 mEq/L (5-15); Aspartate Amino Transferase 38 U/L (17-59); Bilirubin,Total 0.3 mg/dl (0.2-1.3); Blood Urea Nitrogen 14 mg/dl (9-20); Calcium 8.5 mg/dl (8.4-10.2); Carbon Dioxide 28 mmol/L (22.0-30.0); Chloride 102 mmol/L (98-107); Creatinine Clearance Estimated 76 mL/min (50-200); Estimated Glomerular Filt Rate 76 ml/min (>60); GFR (African American) 92 ML/MIN (>60); Globulin 3.5 g/dL (1.3-3.2); Glucose 316 mg/dl (74-100); Potassium 3.3 mmoL/L (3.5-5.1); Sodium 141 mmol/L (136-145); Total Protein,Serum 7.4 g/dl (6.3-8.2)
[2023-04-07 20:11] LABS: Lactic Acid 2.1 mmol/L (0.7-2.1)
[2023-04-07 20:30] VITALS: BP 126/71; PULSE 74; O2SAT 95
--- NOTE | 2023-04-07 20:33 | HMH.EDGENADL ---
Discharge Plan Disposition Patient Disposition: Home, Self-Care Condition: Good Prescriptions Prescriptions: New cephalexin 500 mg capsule 500 mg PO Q6H 10 Days Qty: 40 0RF No Action pravastatin 40 MG tablet 40 mg PO DAILY glimepiride 4 MG tablet 8 mg PO DAILY lisinopril-hydrochlorothiazide 1 EACH tablet 1 tab PO DAILY amlodipine 5 MG tablet 5 mg PO DAILY cholecalciferol (vitamin D3) 1,000 UNIT capsule 2,000 unit PO DAILY sitagliptin phos-metformin 1 EACH tablet 1 tab PO BID Rx Instructions: 50/1000mg acyclovir 400 MG tablet 400 mg PO TID lenalidomide 10 MG capsule 10 mg PO HS rivaroxaban 20 MG tablet 20 mg PO DAILY potassium chloride 20 MEQ tablet 20 meq PO DAILY insulin degludec 100 UNIT/ML insulin pen 15 units SQ BID azithromycin 250 MG tablet 250 mg PO DIRECTED Qty: 6 0RF Rx Instructions: Take two (2) tablets on day #1, then one (1) tablet day #2 thru #5 Paxlovid 300 mg (150 mg x 2)-100 mg tablets,dose pack See Rx Instructions .ROUTE .COMPLEX Qty: 30 0RF Rx Instructions: take TWO 150 mg tablets of nirmatrelvir with ONE 100 mg tablet of ritonavir twice daily for 5 days azithromycin 250 mg tablet See Rx Instructions .ROUTE .COMPLEX Qty: 6 0RF Rx Instructions: For 250 mg dose pack: take 500 mg today (day 1), then 250 mg for 4 days (days 2-5) benzonatate 100 mg capsule 100 mg PO TID PRN (Reason: cough) 5 Days Qty: 20 0RF Referrals Follow up/Referrals: Bola Archuleta MD [Primary Care Provider] - See instructions Clinical Impressions Clinical Impression: Cellulitis Qualifiers: Site of cellulitis: extremity Site of cellulitis of extremity: lower extremity Laterality: right Qualified Code(s): L03.115 - Cellulitis of right lower limb Discharge ED Provider: Lewis Maxwell Adult HPI General Chief complaint: Extremity Injury, Lower Stated complaint: [id number] right foot pain, left big toe home accid Time Seen by Provider: 04/07/23 20:33 Mode of Arrival: Ambulatory Source of Information: Patient and Spouse Limitations: No Limitations Description of Symptoms (Recalled from ER Triage Doc. by RN): pt states he fell 8/3. pt stubbed his toed and ending up losing his L great toe nail. History of Present Illness HPI narrative: Patient presents for evaluation of right lateral leg injury sustained several days ago, has subsequently developed surrounding erythema, no previous therapies, additional injuries include stubbed left great toenail, patient has known history of diabetic neuropathy and has been wearing flip-flops. Denies any fevers or chills, denies any head injury, denies any concern for foreign body. Unsure of tetanus status. No unilateral leg pain or leg swelling. Denies immunocompromised state. Related Data Home Medications Medication Instructions Recorded Confirmed amlodipine 5 mg tablet 5 mg PO DAILY blood pressure 10/30/18 07/03/21 glimepiride 4 mg tablet 8 mg PO DAILY Diabetes 10/30/18 07/03/21 lisinopril 20 1 tab PO DAILY blood pressure 10/30/18 07/03/21 mg-hydrochlorothiazide 12.5 mg tablet pravastatin 40 mg tablet 40 mg PO DAILY Cholesterol 10/30/18 07/03/21 acyclovir 400 mg tablet 400 mg PO TID antiviral 02/10/19 07/03/21 cholecalciferol (vitamin D3) 25 2,000 unit PO DAILY Diet supplement 02/10/19 07/03/21 mcg (1,000 unit) capsule sitagliptin phosphate 50 1 tab PO BID Diabetes 02/10/19 07/03/21 mg-metformin 1,000 mg tablet lenalidomide 10 mg capsule 10 mg PO HS CHEMO 10/16/20 07/03/21 insulin degludec 100 unit/mL (3 15 units SQ BID Diabetes 10/17/20 07/03/21 mL) subcutaneous pen potassium chloride 20 mEq 20 meq PO DAILY potassium 10/17/20 07/03/21 tablet,extended release(part/cryst) replacement rivaroxaban 20 mg tablet 20 mg PO DAILY Blood thinner/heart 10/17/20 07/03/21 disease Previous Rx's Medication Instructions Recorded manish
[2023-04-07 20:53] VITALS: BP 126/71; PULSE 94; RESP 18; TEMP 37.1
[2023-04-07 23:46] LABS: Reflex Lactic Add Lactic Reflex
== END 2023-04-07 20:55 | disposition home or self-care (01) ==
PROVIDERS: Emergency Provider Emergency Medicine; PCP Family Medicine
DX: L03.115 Cellulitis of right lower limb (principal); S91.202S Unspecified open wound of left great toe with damage to nail, sequela; E11.40 Type 2 diabetes mellitus with diabetic neuropathy, unspecified; W22.8XXS Striking against or struck by other objects, sequela; Z23 Encounter for immunization
CPT/HCPCS: 80053; 83605; 85025; 87040; 90715; 96372; 99285

== ENCOUNTER → 2023-06-12 08:54 | Outpatient (POV) | payer OTHER, SELFPAY ==
--- NOTE | 2023-06-12 09:46 | EXP.PAIN.OV ---
HPI Data of Consult Patient: new to practice Consult date: 06/12/23 Requesting Physician: Wen Membreno APRN Consult Narrative Reason for consult: Chronic low back pain related to cancer History of present illness: Mr. Pathak is a 58 year old male who presents today as a new patient. He is a referral from Dr. Archuleta's office. Patient does rate his pain today a 6 out of 10. Patient states he has chronic low back pain related to multiple myeloma that he was diagnosed with in 2019. Patient does describe his pain as a constant achy sensation that is worse with increased activity. Patient does state that he sees Dr. Miramontes at and still goes every 3 months for IV therapy for his bones and he also takes a daily pill. Patient does state that he is currently in remission. He does state that Dr. Miramontes had been prescribing him tramadol 50 mg 4 times a day however over the last few months he stated he could no longer do this because he was not a's pain specialist. He states he did talk to Dr. Archuleta who referred him to our office. Patient states that the tramadol did help take the edge off and denied any side effects from this. He does state the pain interferes with his ability to sleep and that nights are typically worse. He states he does have neuropathy in his feet and left hand and typically can only get about 4 hours sleep. He states when he was being prescribed the medication it at least help provide improvement in his sleeping habits. Patient states that in the past he has had injections that did not provide any additional improvement. He states that he has also tried physical therapy last year at [facility] in [place] and it made his pain significantly worse. Patient has tried other [id number] medications such as Tylenol and ibuprofen with minimal improvement along with heat and ice and topicals. Patient does state in the past he has been prescribed stronger pain medication however this upset his stomach and he discontinued it. Patient states he does have a history of 3 different kyphoplasty procedures. His Zeyad is [phone]. Its been reviewed and appropriate. CC: Wen Membreno APRN [facility] Disclaimer: The information contained in this section may have been updated after the patient was seen, as this information can be updated by other users. Social History Smoking Status: Never smoker alcohol intake: never current occupational status: employed Travel in the last 8 weeks: None caffeine: Yes Review of Systems Review of Systems Review of systems:: pertinent systems reviewed and negative unless documented below Review of systems (narrative): Review of Systems: General: No recent weight changes, no fever, no sleep disturbances Respiratory: No cough, no shortness of air, no recurring pulmonary infections Cardiovascular/peripheral vascular: No chest pain, no palpitations, no edema, no shortness of breath Gastrointestinal: No new onset incontinence, normal bowel movements reported Genitourinary: No new onset incontinence Musculoskeletal: Back pain Psychiatric: [Normal mood/affect] Neurological: [Denies weakness in extremities], [denies balance issues] Meds Home Medications and Allergies Home Medications Medication Instructions Recorded Confirmed Type amlodipine 5 mg tablet 5 mg PO DAILY blood pressure 10/30/18 07/03/21 History glimepiride 4 mg tablet 8 mg PO DAILY Diabetes 10/30/18 07/03/21 History lisinopril 20 1 tab PO DAILY blood pressure 10/30/18 07/03/21 History mg-hydrochlorothiazide 12.5 mg tablet pravastatin 40 mg tablet 40 mg PO DAILY Cholesterol 10/30/18 07/03/21 History acyclovir 400 mg tablet 400 mg PO TID antiviral 02/10/19 07/03/21 History cholecalciferol (vitamin D3) 25 2,000 unit PO DAILY Diet supplement 02/10/19 07/03/21 History mcg (1,000 unit) capsule sitagliptin phosphate 50 1 tab PO BID Diabetes 02/10/19 07/03/21 History mg-metformin 1,000 mg tablet lenalidomide 1
[2023-06-12 09:56] VITALS: BP 108/85; PULSE 86; RESP 18; O2SAT 94; BMI 45.3
== END | disposition home or self-care (01) ==
PROVIDERS: Visit Provider Nurse Practitioner Family
DX: M54.50 Low back pain, unspecified (principal); G89.4 Chronic pain syndrome; Z85.79 Personal history of other malignant neoplasms of lymphoid, hematopoietic and related tissues
CPT/HCPCS: 99202; G0463

== ENCOUNTER → 2023-09-11 09:01 | Outpatient (POV) | payer OTHER, SELFPAY ==
--- NOTE | 2023-09-11 09:09 | EXP.PAIN.SOA ---
[facility] Pain Management SOAP Note Subjective:: Patient is a pleasant 58-year-old male who presents today for 3-month follow-up and medication refill. We are currently treating the patient for chronic pain syndrome, low back pain, history of multiple myeloma. Today he rates his pain a 5 out of 10. Patient denies any new trauma or injury. Patient does state that the rainy and cold weather has seem to affect him more this year than it had the prior years. Patient continues to have pain due to his history of cancer. Patient is currently managed with tramadol 50 mg 3 times a day. Patient denies any side effects from this medication. His Zeyad has been reviewed and is appropriate. Review of Systems: General: No recent weight changes, no fever, no sleep disturbances Respiratory: No cough, no shortness of air, no recurring pulmonary infections Cardiovascular/peripheral vascular: No chest pain, no palpitations, no edema, no shortness of breath Gastrointestinal: No new onset incontinence, normal bowel movements reported Genitourinary: No new onset incontinence Musculoskeletal: Low back pain Psychiatric: [Normal mood/affect] Neurological: [Denies weakness in extremities], [denies balance issues] Objective:: Physical Exam: General: Alert and oriented x3, no acute distress, pleasant and cooperative Lungs: Respirations even and unlabored, symmetrical chest expansion Eyes: PERRL Musculoskeletal: Flexion and extension of lumbar [spine] somewhat guarded secondary to pain, [antalgic gait noted] Neurological: Speech clear, no gross sensory deficit Assessment:: Chronic pain syndrome, low back pain, history of multiple myeloma Plan:: Patient continues to do well on his current medication regimen. I will refill his tramadol 50 mg 3 times a day and provide a 3-month supply of this medication. Patient will return to clinic in 3 months for reevaluation of symptoms and plan of care. Patient has been advised of risks of oversedation with the prescribed medication. Narcan has been offered to the patient in the event of oversedation. Patient has been advised that a family member should also be educated regarding administration of Narcan. Patient has been instructed to contact the clinic with any concerns before the next appointment. Dr. Armstrong has reviewed this note and agrees with this plan of care. This note was dictated using voice recognition software and make contain errors or omissions. [facility] Disclaimer: The information contained in this section may have been updated after the patient was seen, as this information can be updated by other users. Medical History (Updated 06/12/23 @ 09:58 by Yin Montano RN) Cancer Diabetes DVT (deep venous thrombosis) HLD (hyperlipidemia) HTN (hypertension) Surgical History (Updated 06/12/23 @ 09:59 by Yin Montano RN) H/O kyphoplasty Hx of tonsillectomy Family History (Updated 06/12/23 @ 09:58 by Yin Montano RN) Other Diabetes Heart attack Hyperlipidemia Hypertension Social History (Updated 06/12/23 @ 10:02 by Yin Montano RN) Smoking Status: Never smoker alcohol intake: never current occupational status: unemployed Travel in the last 8 weeks: None caffeine: Yes
[2023-09-11 12:29] VITALS: BP 138/74; PULSE 100; RESP 18; O2SAT 95; BMI 45.6
== END | disposition home or self-care (01) ==
PROVIDERS: PCP Family Medicine; Visit Provider Nurse Practitioner Family
DX: G89.4 Chronic pain syndrome (principal); M54.50 Low back pain, unspecified; Z85.79 Personal history of other malignant neoplasms of lymphoid, hematopoietic and related tissues
CPT/HCPCS: 99212; G0463

== ENCOUNTER 2023-09-29 07:08 | Inpatient (IN) | payer OTHER, SELFPAY ==
[2023-09-29] VITALS (25 sets, daily range): BP systolic 91–167; BP diastolic 44–99; PULSE 63–108; RESP 14–22; TEMP 36.6–36.8; O2SAT 90–99; BMI 45.6; BMI 44.4
--- NOTE | 2023-09-29 07:07 | ECG_ITS ---
APPROVED REPORT Exam: Resting ECG HR:104 bpm ECG Measurements Heart Rate 104 AXES AZ 188 P 47 QRSd 106 QRS -27 QT 354 T 55 QTc 414 Conclusion SINUS TACHYCARDIA LOW QRS VOLTAGE Left axis deviation Late R wave progression ABNORMAL RHYTHM ECG UNCONFIRMED REPORT Electronically signed by : Juan Carlos Anne MD 09/29/2023 17:16:56
--- NOTE | 2023-09-29 07:11 | CT_ITS ---
FINAL REPORT TECHNIQUE: Then section axial CT images of the chest were obtained with contrast. Three-D reformatted images were also obtained.This study was performed with techniques to keep radiation doses as low as reasonably achievable (ALARA). Individualized dose reduction techniques using automated exposure control or adjustment of mA and/or kV according to the patient''s size were employed. CLINICAL HISTORY: chest pain, cancer pt COMPARISON: 10/16/2020 FINDINGS: There are large pulmonary emboli including a saddle embolus and emboli extending into multiple bilateral lower lobe branches. There is flattening of the interventricular septum of the heart and mild enlargement of the right ventricle consistent with right heart strain. Atelectasis is present in the lung schneider bilaterally. There is no evidence of thoracic aortic aneurysm or dissection. There is no evidence of mediastinal or hilar mass or adenopathy. There is no evidence of pulmonary mass or suspicious nodule. Limited images of the upper abdomen reveal a stone filled gallbladder. There is also a 3 mm left renal nonobstructing stone. IMPRESSION: Large pulmonary emboli including a saddle embolus and emboli extending into multiple bilateral lower lobe branches. Flattening of the interventricular septum and mild enlargement of the right ventricle consistent with right heart strain. These results were called to the emergency room at [facility] 9 AM on 09/29/2023. Reviewed, Interpreted and Dictated by Herrera Dover III, MD Transcribed by Sylvia Joaquin Authenticated and [facility]
--- NOTE | 2023-09-29 07:17 | PC.NURSE ---
dr boss at bedside
[2023-09-29] MEDS: ASPIRIN 81MG CHEWABLE TABLET 324 MG PO (07:18)
--- NOTE | 2023-09-29 07:19 | ED_ITS ---
Discharge Plan Disposition Patient Disposition: Admitted Condition: Good Clinical Impressions Clinical Impression: Acute saddle pulmonary embolism, Elevated troponin Discharge ED Provider: Wen Patiño HPI General Chief Complaint: Chest Pain Stated Complaint: chest pain Time Seen by Provider: 09/29/23 07:10 Source of Information: Patient Limitations: No Limitations Description of Symptoms (Recalled from ER Triage Doc. by RN): Patient complaint of periods of shortness of breath while unloading and loading a truck yesterday. States it happened again this morning while loading the truck and that he has chest pressure as well. History of Present Illness HPI narrative: This patient is a 58-year-old male with a history of multiple myeloma in remission on maintenance medication, pretension, hyperlipidemia, diabetes, and history of DVT on Xarelto presenting to the emergency department for evaluation with concern for chest pain and shortness of breath. Patient stated that yest erday, he was having intermittent episodes of chest pain, shortness of breath, and lightheadedness. He states that it felt like he could not get a good breath in. This happened while he was loading a truck as well as seem to be triggered randomly in a restaurant bathroom. He thought maybe they had used bleach or some other solution to clean and that made him get short of breath. He states this happens sometimes when he is around people wearing heavy perfume. Today, he was unloading his truck when he experienced chest pressure/heaviness and shortness of breath again. Given this, he presented to the ED for evaluation. He denies any fevers, chills, cough, congestion, sore throat, abdominal pain, vomiting, changes in bowel movements, or other concerns. He does note bilateral leg swelling, which he states is chronic, but he does note that it is a little bit worse today as he had his legs down most of the day yesterday. No other concerns noted at this time. No history of asthma or COPD, and no extensive smoking history. OF NOTE - he has not been taking his xarelto because insurance would not cover it. Related Data Home Medications Medication Instructions Recorded Confirmed amlodipine 5 mg tablet 5 mg PO DAILY 10/30/18 09/29/23 glimepiride 4 mg tablet 8 mg PO DAILY Diabetes 10/30/18 09/29/23 lisinopril 20 1 tab PO DAILY 10/30/18 09/29/23 mg-hydrochlorothiazide 12.5 mg tablet pravastatin 40 mg tablet 40 mg PO HS Cholesterol 10/30/18 09/29/23 cholecalciferol (vitamin D3) 25 2,000 unit PO DAILY 02/10/19 09/29/23 mcg (1,000 unit) capsule lenalidomide 10 mg capsule 10 mg PO HS CHEMO 10/16/20 09/29/23 insulin degludec 100 unit/mL (3 15 units SQ BID Diabetes 10/17/20 09/29/23 mL) subcutaneous pen (Tresiba FlexTouch U-100 insulin) potassium chloride 20 mEq 20 meq PO DAILY 10/17/20 09/29/23 tablet,extended release(part/cryst) rivaroxaban 20 mg tablet 20 mg PO DAILY 10/17/20 09/11/23 linagliptin 2.5 mg-metformin 1,000 1 tab PO BIDWMEAL 09/29/23 09/29/23 mg tablet (Jentadueto) Previous Rx's Medication Instructions Recorded tramadol 50 mg tablet 50 mg PO TID #270 tabs 09/11/23 Allergies Allergy/AdvReac Type Severity Reaction Status Date / Time No Known Allergies Allergy Verified 04/07/23 19:39 [facility] Disclaimer: The information contained in this section may have been updated after the patient was seen, as this information can be updated by other users. Medical History Cancer Diabetes DVT (deep venous thrombosis) HLD (hyperlipidemia) HTN (hypertension) Surgical History H/O kyphoplasty Hx of tonsillectomy Family History Other Diabetes Heart attack Hyperlipidemia Hypertension Social History Smoking Status: Unknown if ever smoked alcohol intake: never current occupational status: unemployed Travel in the last 8 weeks: None caffeine: Yes ROS Obtained: Yes All systems reviewed & no additional complaints except as documented Physical Exam General General appearance: alert, in no apparent distress and obese Head Head exam: atraumatic and normocephalic Eye Eye exam: Present normal appearance, PERRL and EOMI ENT ENT exam: Present normal exam, normal oropharynx, mucous membranes moist and normal external ear exam Neck Neck exam: Present normal inspection, full ROM and trachea midline; Absent tenderness Chest Chest inspection: Present normal inspection and symmetric chest wall rise; Absent tenderness Respiratory Respiratory exam: Present normal lung sounds bilaterally; Absent respiratory distress, wheezes, stridor or accessory muscle use Cardiovascular Cardiovascular exam: Present normal rhythm and tachycardia Abdominal Exam Abdominal exam: Present soft; Absent distention, tenderness or guarding Extremities Exam Extremities exam: Present full ROM, normal capillary refill and edema (2+ BLE edema); Absent tenderness Back Exam Back exam: Present normal inspection and full ROM; Absent tenderness Neurological Exam Neurological exam: Present alert, oriented X3, CN II-XII intact and normal gait; Absent motor sensory deficit Psychiatric Psychiatric exam: Present normal affect and normal mood Skin Skin exam: Present warm and dry HEART Score HEART Score HEART Score assessment performed?: Yes History (anamnesis): Moderately suspicious ECG: Non-specific disturbance Age: 45-65 years Risk factors: 3 or more risk factors Troponin: > 3x normal limit HEART Score: 7 Procedures Limited Ultrasound Views:: Limited cardiac ultrasound Indication: Chest pain, shortness of breath Identified cardiac views: [-Cardiac parasternal long axis] [-Cardiac parasternal short axis] [-Cardiac apical four-chamber] Findings: [-Cardiac activity present -Pericardial effusion absent -Right heart strain present] Impression: -[From above] - RV dilation with flattened intraventricular septum Images [were saved] to permanent archive The study [was] technically adequate CPT: 38297 This study was performed by me, and I personally interpreted all images/videos. Based on my clinical judgement, these images were [adequate] and [did not] necessitate further imaging. Critical Care Critical Care Time Critical Care Time: Yes Attestation: On 09/29/23, the high probability of a clinically significant, sudden or life threatening deterioration of the following system(s) (cardiovascular, respiratory) required my full and direct attention, intervention and personal management. The time I documented below is in addition to time spent performing reported procedures but includes the following listed in this critical care notation. Total Time Total Critical Care Time: 40 Medical Decision Making Medical Records Medical records reviewed: Yes I reviewed the patient's medical records. Zeyad Inquiry Pt receiving controlled substance: No Vital Signs Vital Signs: 09/29/23 07:09 09/29/23 07:30 09/29/23 08:30 Temperature 98.2 F Temperature Source Oral Pulse Rate 98 H 97 H Pulse Rate [Radial] 108 H Respiratory Rate 16 22 20 Blood Pressure 136/80 104/62 L Blood Pressure [Right Arm] 167/99 H Blood Pressure Mean 98 77 Blood Pressure Mean [Right Arm] 121 Blood Pressure Source Blood Pressure Source [Right Arm] Automatic Cuff Blood Pressure Position Blood Pressure Position [Right Arm] Sitting 02 Sat by Pulse Oximetry 96 90 L 91 L Oxygen Delivery Method Room Air 09/29/23 09:00 09/29/23 11:32 Temperature 98.2 F Temperature Source Oral Pulse Rate 98 H 98 H Pulse Rate [Radial] Respiratory Rate 22 22 Blood Pressure 127/77 122/77 Blood Pressure [Right Arm] Blood Pressure Mean 87 Blood Pressure Mean [Right Arm] Blood Pressure Source Automatic Cuff Blood Pressure Source [Right Arm] Blood Pressure Position Sitting Blood Pressure Position [Right Arm] 02 Sat by Pulse Oximetry 91 L Oxygen Delivery Method Room Air Lab Data Labs: Lab Results 09/29/23 07:10: WBC 6.8, RBC 5.22, Hgb 15.5, Hct 45.7, MCV 87.6, MCH 29.6, MCHC 33.8, RDW 15.8, Plt Count 133 L, MPV 8.8, Neut % (Auto) 75.5, Lymph % (Auto) 12.3, Humphreys % (Auto) 6.9, Eos % (Auto) 4.5, Baso % (Auto) 0.8, Neut # (Auto) 5.1, Lymph # (Auto) 0.8, Humphreys # (Auto) 0.5, Eos # (Auto) 0.3, Baso # (Auto) 0.1, PT 11.4, INR 1.06, APTT 27.0, Sodium 138, Potassium 3.4 L, Chloride 102, Carbon Dioxide 30, Anion Gap 9.4, BUN 14, Creatinine 1.00, Estimated Creat Clear 76, Estimated GFR 76, Est GFR ( Amer) 92, Glucose 313 H, Calcium 8.6, Total Bilirubin 0.7, AST 36, ALT 37, Alkaline Phosphatase 68, Troponin I 0.09 H, NT- Pro-B Natriuret Pep 2370 H, Total Protein 7.5, Albumin 4.0, Globulin 3.5 H, Albumin/Globulin Ratio 1.1 09/29/23 07:10 09/29/23 07:10 Response Orders (Tests/Meds): ED MEDICATIONS Generic Name Dose Route Start Last Admin Trade Name Mehdi PRN Reason Stop Dose Admin Acetaminophen 650 mg 09/29/23 09:26 Acetaminophen 325mg Tab PO 10/29/23 09:25 Q6HP PRN Fever or Mild Pain (1-3) Enoxaparin Sodium 135 mg 09/29/23 21:00 Enoxaparin 150mg/Ml Syringe 1 mg/kg (135 mg) 10/29/23 20:59 SQ Q12H [facility] Fentanyl Citrate 50 mcg 09/29/23 10:33 09/29/23 11:59 Fentanyl 100mcg/2ml Vial IV 09/29/23 22:33 200 mcg Q3MINP PRN Administration Moderate to Severe Pain (4-10) Fentanyl Citrate 25 mcg 09/29/23 10:33 Fentanyl 250mcg/5ml Vial IV 09/29/23 22:33 Q3MINP PRN Moderate to Severe Pain (4-10) Fentanyl Citrate 50 mcg 09/29/23 10:33 Fentanyl 250mcg/5ml Vial IV 09/29/23 22:33 Q3MINP PRN Moderate to Severe Pain (4-10) Fentanyl Citrate 25 mcg 09/29/23 10:33 Fentanyl 100mcg/2ml Vial IV 09/29/23 22:33 Q3MINP PRN Moderate to Severe Pain (4-10) Flumazenil 0.2 mg 09/29/23 10:33 Flumazenil 0.1mg/Ml 5ml Vial IV 09/29/23 22:33 NEEDED PRN Sedation Heparin Sodium (Porcine) 10,000 unit 09/29/23 10:33 Heparin 1,000 Units/Ml 10ml Vial ([employer]) IV 09/29/23 14:33 NEEDED PRN Emergency Box Aligning Checker Hydralazine HCl 20 mg 09/29/23 10:33 Hydralazine 20mg/Ml Vial IV 09/29/23 14:33 ONCE PRN sbp>160 Adenosine 180 mg/ Sodium 90 mls @ 734.821 mls/hr 09/29/23 10:33 Chloride IV 09/29/23 14:33 ONCE PRN fractional flow reserve 180 MCG/KG/MIN Adenosine 90 mg/ Sodium 90 mls @ 1,469.642 mls/hr 09/29/23 10:33 Chloride IV 09/29/23 14:33 ONCE PRN fractional flow reserve 180 MCG/KG/MIN Sodium Chloride 1,000 mls @ 25 mls/hr 09/29/23 10:45 09/29/23 11:59 Sod Chloride 0.9% 500ml Bag IV 09/30/23 10:33 25 mls/hr .Q25H STEPHANI Administration Labetalol HCl 20 mg 09/29/23 10:33 Labetalol 20mg/4ml Syringe IV 09/29/23 14:33 ONCE PRN sbp>160 Midazolam HCl 1 mg 09/29/23 10:33 Midazolam 2mg/2ml Vial IV 09/29/23 22:33 Q3MINP PRN Sedation Midazolam HCl 1 mg 09/29/23 10:33 09/29/23 11:59 Midazolam Hcl 1mg/1ml 5ml Vial IV 09/29/23 22:33 7 mg Q3MINP PRN Administration Sedation Naloxone HCl 0.4 mg 09/29/23 10:33 Naloxone 0.4mg/Ml Vial IV 09/29/23 22:33 Q5MINP PRN Decreased Respirations Nitroglycerin 800 mcg 09/29/23 10:33 Nitroglycerin 800mcg/8ml Syr ([employer] Machine [employer]ter) IA 09/29/23 14:33 NEEDED PRN Emergency Box Aligning Checker Protamine Sulfate 50 mg 09/29/23 10:33 Protamine Sulfate 50mg/5ml Vial ([employer] Machine [employer]ter) IV 09/29/23 14:33 ONCE PRN act>200 Sodium Chloride 10 ml 09/29/23 07:26 Sodium Chloride 0.9% 10ml Flush Syringe IV 10/29/23 07:25 NEEDED PRN Maintain IV Site Sodium Chloride 10 ml 09/29/23 10:33 Sodium Chloride 0.9% 10ml Flush Syringe IV 10/29/23 10:32 NEEDED PRN Maintain IV Site Discontinued Medications Generic Name Dose Route Start Last Admin Trade Name Freq PRN Reason Stop Dose Admin Aspirin 324 mg 09/29/23 07:12 09/29/23 07:18 Aspirin 81mg Chewable Tablet PO 09/29/23 07:13 324 mg ONCE ONE Administration Diphenhydramine HCl 50 mg 09/29/23 10:33 09/29/23 11:58 Diphenhydramine 50mg/Ml Vial IV 09/29/23 10:34 50 mg ONCE ONE Administration Enoxaparin Sodium 135 mg 09/29/23 09:15 09/29/23 09:13 Enoxaparin 100mg/Ml Syringe 1 mg/kg (135 mg) 10/29/23 09:14 135 mg SQ Administration Q12H STEPHANI Heparin Sodium/Sodium Chloride 3,000 unit 09/29/23 10:33 09/29/23 11:59 Heparin 1,000 Units/500ml Ns (Body Maker Machine Setter) IV 09/29/23 10:34 3,000 unit ONCE ONE Administration Iopamidol 70 ml 09/29/23 08:13 09/29/23 08:14 Iopamidol-370 (76%);100ml Bottle IV 09/29/23 08:14 70 ml ONCE ONE Administration Lidocaine HCl 20 ml 09/29/23 10:33 09/29/23 11:59 Lidocaine 1% 10ml Mdv IJ 09/29/23 10:34 10 ml ONCE ONE Administration Lidocaine HCl 20 ml 09/29/23 10:33 09/29/23 13:38 Lidocaine 1% 5ml Pf Vial IJ 09/29/23 10:34 Not Given ONCE ONE Morphine Sulfate 4 mg 09/29/23 09:27 09/29/23 09:43 Morphine 4mg/Ml Syringe IV 09/29/23 09:28 4 mg ONCE ONE Administration Ondansetron HCl 4 mg 09/29/23 09:27 09/29/23 09:43 Ondansetron 4mg/2ml Vial IV 09/29/23 09:28 4 mg ONCE ONE Administration Sodium Chloride 10 ml 09/29/23 08:13 09/29/23 08:14 Sodium Chloride 0.9% 10ml Syr (Rad Only) IV 09/29/23 08:14 10 ml ONCE ONE Administration Sodium Chloride 50 ml 09/29/23 08:13 09/29/23 08:14 0.9 % Sodium Chloride 50 Ml Vial IV 09/29/23 08:14 50 ml ONCE ONE Administration Verapamil HCl 2.5 mg 09/29/23 10:33 09/29/23 13:38 Verapamil 2.5mg/Ml 2ml Vial IV 09/29/23 10:34 Not Given ONCE ONE ORDERS Category Date Time Status CT angio chest PE protocol Stat Cat Scan 09/29/23 07:11 Completed Consult to Cardiology [CONS] Routine Cons 09/29/23 09:10 Active POCUS Point of Care (ER Only) Stat Exams 09/29/23 09:03 Taken Activated Partial Thrombo Time Stat Lab 09/29/23 07:10 Completed Brain Natriuretic Peptide Stat Lab 09/29/23 07:10 Completed Complete Blood Count Auto Diff Stat Lab 09/29/23 07:10 Completed Comprehensive Metabolic Panel Stat Lab 09/29/23 07:10 Completed Prothrombin Time INR Stat Lab 09/29/23 07:10 Completed Troponin I Q3H Lab 09/29/23 10:15 Completed Troponin I Stat Lab 09/29/23 07:10 Completed CA echo doppler complete Stat Y 09/29/23 09:04 Completed ECG initial Besson Routine Y 09/29/23 07:07 Completed ECG Data Tracing #1: Attestation: I reviewed this ECG and interpreted as documented below: ECG Narrative: Sinus tachycardia with a ventricular rate of [address] changes concerning for ischemia. no significant changes noted from prior EKG. ECG initial impression date: 09/29/23 ECG initial impression time: 07:10 MDM Narrative Medical Decision Narrative: In summary, this patient is a 58-year-old male presenting to the Emergency Department for evaluation of intermittent chest pain and shortness of breath since yesterday. Differential diagnoses considered include but are not limited to CHF exacerbation, ACS, PE, dysrhythmia, pneumonia, viral syndrome, respiratory failure. Ruling out the most morbid conditions drove assessment. It should be noted patient's history includes multiple myeloma, hypertension, hyperlipidemia, diabetes, and prior DVT which may or may not be at goal therapy. This complicates all aspects of care by increasing patient's risk for morbidity. On exam, the patient is in no acute distress. No significantly increased work of breathing. He does have mild tachycardia with heart rate in the low 100s and his oxygen saturation is 90 to 93% on room air at rest. He has a history of DVT as well as multiple myeloma and has not been on anticoagulation given his insurance would not cover it. Workup included CBC, CMP, troponin, BNP, CT PE protocol, and EKG. He was given oral aspirin. EKG is nonischemic. I independently interpreted CTA prior to the radiologist read and noted saddle PE. Please see their read for final interpretation. They note concern for right heart strain. Labs were obtained that demonstrated elevated troponin, elevated BNP, and mild thrombocytopenia. On reassessment, the patient is resting comfortably with heart rate in the 90s. Blood pressure is normal, and his oxygen saturation is 91 to 93% on room air. Bedside ultrasound performed that did demonstrate RV dilatation. I called and had an interactive discussion with Dr. Saez with cardiology who advised administering 1 mg/kg of Lovenox and sending the patient to the [facility]. I had an interactive discussion with Dr. Archuleta, the patient's primary care provider, who advised he would accept him for admission post-cath for further monitoring. The patient was taken and admitted in stable condition.
[2023-09-29 07:22] LABS: Basophils # 0.1 K/mm3 (0-0.2); Basophils % 0.8 % (0.1-2.0); Eosinophils # 0.3 K/mm3 (0.0-0.4); Eosinophils % 4.5 % (0.1-12.0); Hematocrit 45.7 % (42.0-52.0); Hemoglobin 15.5 g/dL (14.1-18.0); Lymphocytes # 0.8 K/mm3 (0.7-4.5); Lymphocytes % 12.3 % (10-50); Mean Corpuscular HGB Conc 33.8 g/dL (31.8-35.4); Mean Corpuscular Hemoglobin 29.6 pg (27.0-31.2); Mean Corpuscular Volume 87.6 fl (80-94); Mean Platelet Volume 8.8 fl (7.4-10.4); Monocytes # 0.5 K/mm3 (0.1-1.0); Monocytes % 6.9 % (1.7-9.3); Neutrophils # 5.1 K/mm3 (1.8-7.8); Neutrophils % 75.5 % (37.0-80.0); Platelet Count 133 K/mm3 (142-424); Red Blood Count 5.22 M/mm3 (4.60-6.20); Red Cell Distribution Width 15.8 % (11.5-17.5); White Blood Count 6.8 K/mm3 (4.8-10.8)
[2023-09-29 07:33] LABS: Chloride 102 mmol/L (98-107); Potassium 3.4 mmoL/L (3.5-5.1); Sodium 138 mmol/L (136-145)
[2023-09-29 07:36] LABS: Alanine Aminotransferase 37 U/L (12-78); Albumin/Globulin Ratio 1.1 (1.1-1.8); Alkaline Phosphatase 68 U/L (38-126); Anion Gap 9.4 mEq/L (5-15); Aspartate Amino Transferase 36 U/L (17-59); Bilirubin,Total 0.7 mg/dl (0.2-1.3); Blood Urea Nitrogen 14 mg/dl (9-20); Carbon Dioxide 30 mmol/L (22.0-30.0); Creatinine Clearance Estimated 76 mL/min (50-200); Estimated Glomerular Filt Rate 76 ml/min (>60); GFR (African American) 92 ML/MIN (>60); Globulin 3.5 g/dL (1.3-3.2); Total Protein,Serum 7.5 g/dl (6.3-8.2)
[2023-09-29 07:37] LABS: Calcium 8.6 mg/dl (8.4-10.2); Glucose 313 mg/dl (74-100)
[2023-09-29 07:46] LABS: NT Pro Brain Natriuretic Pep. 2370 pg/mL (0-125)
[2023-09-29 07:49] LABS: Troponin I 0.09 ng/ml (0.00-0.034)
[2023-09-29] MEDS: SODIUM CHLORIDE 0.9% 10ML SYR (RAD ONLY) 10 ML IV (08:14)
[2023-09-29] MEDS: 0.9 % SODIUM CHLORIDE 50 ML VIAL IV (08:14)
[2023-09-29] MEDS: IOPAMIDOL-370 (76%);100ML BOTTLE 70 ML IV (08:14)
--- NOTE | 2023-09-29 09:02 | PC.NURSE ---
Took report from [facility], for critical report. Pt has extensive pulmonary emboli and right heart strain.
--- NOTE | 2023-09-29 09:03 | PC.NURSE ---
dr griffin paged
--- NOTE | 2023-09-29 09:04 | CA_ITS ---
APPROVED REPORT EXAM: Comprehensive 2D, Doppler, and color-flow Echocardiogram Drywall Hanger: Page James RT(R) Ht: 5 ft 8 in Wt: 300lbs BSA: 2.43 BP: 169/99 mmHg Indications: CP, edema, HTN, SOB, hyperlipidemia, current PE's, hx of multiple myeloma in remission, obesity, DM. M-Mode Dimensions RVDd 3.01 cm (0.9-2.6) LA Diam 2.99 cm (1.9-4.0) LVDd 4.38 cm (3.5-5.7) LVDs 3.09 cm (3.5-5.7) IVSd 1.20 cm (0.6-1.1) PWd 0.84 cm (0.6-1.1) EF (Teich) 56.70% FS 29.50% EDV (Teich) 86.80 mL ESV (Teich) 37.60 mL Tricuspid Valve TR P. Velocity 192.00 cm/s RAP Estimate 10.00 mmHg RVSP 24.80 mmHg Left Ventricle The left ventricle is normal size. The left ventricular systolic function is normal. The left ventricular ejection fraction is within the normal range. There is increased LV wall thickness. There is normal LV segmental wall motion. There is septal flattening present, consistent with RV pressure/volume overload. Transmitral Doppler flow pattern suggests impaired LV relaxation. LVEF is 55%. Right Ventricle Right ventricle is moderate to severely dilated. Right ventricle is moderately hypokinetic. Atria The left atrium size is normal. The right atrium size is normal. The interatrial septum is not well-visualized. Aortic Valve The aortic valve is mildly thickened. There is no aortic valvular stenosis. No aortic regurgitation is present. Mitral Valve The mitral valve leaflets are mildly thickened. No evidence of mitral valve stenosis. There is no mitral valve regurgitation noted. Tricuspid Valve The tricuspid valve leaflets are thin and pliable. Trace tricuspid regurgitation. There is insufficient TR jet to estimate RVSP. Pulmonic Valve The pulmonary valve is normal in structure. Trace pulmonic regurgitation. Great Vessels The aortic root is normal in size. The ascending aorta is normal in size. The IVC is not well-visualized. Pericardium There is no pericardial effusion. Other Information Study Quality: Technically Difficult Conclusion Technically difficult study due to poor acoustic windows. Normal LV systolic function. Moderate to severe RV dilation with moderate RV dysfunction. Septal flattening present, consistent with RV pressure/volume overload. No significant valvular stenosis or regurgitation. Electronically signed by : Kiara Hernandez MD 09/29/2023 22:04:37
--- NOTE | 2023-09-29 09:04 | PC.NURSE ---
dr boss speaking with dr griffin
--- NOTE | 2023-09-29 09:06 | PC.NURSE ---
dr boss at bedside to update pt on poc
[2023-09-29] MEDS: ENOXAPARIN 100MG/ML SYRINGE 135 MG SQ (09:13)
--- NOTE | 2023-09-29 09:14 | PC.NURSE ---
dr boss speaking with dr chow
[2023-09-29 09:16] LABS: INR 1.06 (0.9-1.1); Prothrombin Time 11.4 seconds (10.1-12.5)
--- NOTE | 2023-09-29 09:17 | PC.NURSE ---
care management notified of admission
[2023-09-29] MEDS: ONDANSETRON 4MG/2ML VIAL 4 MG IV (09:43)
[2023-09-29] MEDS: MORPHINE 4MG/ML SYRINGE 4 MG IV (09:43)
--- NOTE | 2023-09-29 10:04 | IR_ITS ---
APPROVED REPORT Patient Location: Inpatient PROCEDURES Right heart catheterization prior to pulmonary artery embolectomy Catheter placement in the right pulmonary artery Right pulmonary artery selective angiogram Catheter placed in the left pulmonary artery Left pulmonary artery selective angiogram Mechanical thrombectomy to the right pulmonary artery and upper mid and distal segmental branches Mechanical thrombectomy to the left pulmonary artery and upper and lower segmental branches Post mechanical thrombectomy right heart catheterization INDICATION Submassive pulmonary embolism, Pulmonary hypertension Informed consent was obtained prior to the procedure. COMPLICATIONS NONE Estimated Blood Loss: LESS THAN 10 ML TECHNIQUE 1% lidocaine used anesthetize right groin the right femoral vein was accessed via the Salinger technique and a 5 Malaysian sheath is placed in the right femoral vein. Under fluoroscopic guidance a pigtail catheter was placed in the right pulmonary artery followed by advancement of an Amplatz wire. The pigtail catheter was used to perform pulmonary artery pressures prior to the procedure which were measured at 55/30 mmHg. Following this the pigtail catheter and 5 Malaysian sheath were exchanged for a 16 Malaysian sheath into the right femoral vein. Under fluoroscopic guidance an additional catheter was placed into the right left pulmonary artery where selective angiography was performed. A lightening 12 mechanical thrombectomy catheter was placed in the left main pulmonary artery and mechanical thrombectomy was performed followed by advancement into the upper and lower pulmonary segmental branches. This was repeated in the right pulmonary artery. 600 cc of blood was aspirated during the procedure. Following this repeat catheterization was performed which demonstrated the PA pressure was closer to 35/15 with respiratory variation producing pulmonary pressures as high as 45/20 mmHg. At the end of the procedure the apparatus was removed the sheath was removed and hemostasis was achieved using manual pressure and the stitching patient was transferred to the postop holding in stable condition. A large amount of thrombus was aspirated from the main pulmonary artery as well as bilateral pulmonary arteries. ANGIOGRAPHIC RESULTS Pulmonary pressure 55/30 prethrombectomy Post pulmonary artery thrombectomy right heart catheterization revealed pulmonary pressure of 35 over 15 mmHg Large saddle embolus was identified which extended primarily into the right pulmonary artery with upper middle and lower segmental branches as well as the upper and lower left segmental branch. IMPRESSION Successful right heart catheterization pre and post mechanical thrombectomy Successful mechanical thrombectomy of the main pulmonary artery, right pulmonary artery, left pulmonary artery, segmental branches of the right upper middle and lower pulmonary artery as well as segmental branches of the left upper and lower pulmonary arteries PLAN 1. Continue Lovenox 1 mg/kg SQ twice daily this evening 2. Start Xarelto 15 mg p.o. twice daily for 3 weeks followed by 20 mg thereafter indefinitely Electronically signed by : Efrain Saez MD 09/29/2023 15:39:14
[2023-09-29 10:51] LABS: Troponin I 0.08 ng/ml (0.00-0.034)
--- NOTE | 2023-09-29 11:29 | PC.NURSE ---
Attempted to call report to Med Surg, no answer.
--- NOTE | 2023-09-29 11:48 | PC.NURSE ---
Attempted to call for report. Nurse is not available to give report. Pt is currently in phthalic acid purifier.
[2023-09-29] MEDS: diphenhydrAMINE 50MG/ML VIAL 50 MG IV (11:58)
[2023-09-29] MEDS: LIDOCAINE 1% 10ML MDV 20 ML IJ (11:59)
[2023-09-29] MEDS: HEPARIN 1,000 UNITS/500ML NS (CATH LAB) 3000 UNIT IV (11:59)
[2023-09-29] MEDS: FENTANYL 100MCG/2ML VIAL 50 MCG IV (11:59)
[2023-09-29] MEDS: 0.9 % SODIUM CHLORIDE 500 ML 25 ML IV (11:59)
[2023-09-29] MEDS: MIDAZOLAM HCL 1MG/1ML 5ML VIAL 1 MG IV (11:59)
--- NOTE | 2023-09-29 14:01 | PC.NURSE ---
arrived by callyer from [facility]
[2023-09-29] MEDS: ACETAMINOPHEN 325MG TAB 650 MG PO (14:26)
[2023-09-29] MEDS: TRAMADOL 50MG TABLET 50 MG PO ×2 (15:39→21:08)
[2023-09-29] MEDS: IOPAMIDOL-370 (76%);100ML BOTTLE 160 ML IV (15:46)
--- NOTE | 2023-09-29 15:47 | EXP.CARD.CON ---
History of Present Illness History of Present Illness Consult date: 09/29/23 Requesting physician: Wen aPtiño Consult reason: shortness of breath Chief complaint: weakness History of present illness: This is a 58-year-old white gentleman who presented to the emergency department with complaints of weakness. The patient states that he has a history of multiple myeloma in remission on maintenance medication, hypertension, hyperlipidemia, diabetes and a history of DVT. The patient reports that he was at a gun show this weekend and they loaded the truck yesterday and he had sudden onset of weakness and shortness of breath. The patient states that he felt like he had some tightness in his chest and did not feel well. He states that this tightness was in the substernal aspect of his chest that did not radiate and was associated with profound shortness of breath. His gave him 2 aspirin and the chest pain subsided. His shortness of breath also improved and he was just weak the rest of the day. He states that he got up this morning unloaded the truck and went in to eat breakfast when he had sudden onset of the weakness again. He states that he just felt very tired and like he was unable to do anything. He denied any chest pain or shortness of breath this morning. But due to the extreme nature of the fatigue and weakness he decided to come into the emergency department. The patient was found to have saddle pulmonary emboli causing RV strain on CT. He denies any fever, chills, nausea, vomiting, diarrhea, PND orthopnea. Of note, the patient does report he has a history of multiple myeloma in remission. He is on a daily maintenance medication which he states that his oncologist told him could cause pulmonary emboli. He was taking prophylactic anticoagulation with Lovenox injections for several years and then was switched over to oral Xarelto. However his insurance no longer covers Xarelto and he was only taking aspirin for anticoagulation. [facility] Disclaimer: The information contained in this section may have been updated after the patient was seen, as this information can be updated by other users. Medical History (Updated 09/29/23 @ 15:55 by Nina Aguilar APRN) Cancer Diabetes DVT (deep venous thrombosis) HLD (hyperlipidemia) HTN (hypertension) Surgical History H/O kyphoplasty Hx of tonsillectomy Family History Other Diabetes Heart attack Hyperlipidemia Hypertension Social History (Updated 09/29/23 @ 14:12 by Keara Goldman RN) Smoking Status: Unknown if ever smoked alcohol intake: never current occupational status: unemployed Travel in the last 8 weeks: None caffeine: Yes Review of Systems Review of Systems Review of systems:: pertinent systems reviewed and negative unless documented below Constitutional Constitutional: Reports system reviewed and no additional complaints, except as documented, Reports fatigue, Reports lethargy and Reports weakness Eyes Eyes: Reports system reviewed and no additional complaints, except as documented ENT Ears, Nose, Mouth, and Throat: Reports system reviewed and no additional complaints, except as documented *Cardiovascular Cardiovascular: Reports system reviewed and no additional complaints, except as documented, Reports chest pain, Reports chest pain at rest, Reports chest pain with activity, Reports dyspnea and Reports dyspnea on exertion *Respiratory Respiratory: Reports system reviewed and no additional complaints, except as documented, Reports dyspnea and Reports dyspnea on exertion *Gastrointestinal Gastrointestinal: Reports system reviewed and no additional complaints, except as documented *Genitourinary Genitourinary: Reports system reviewed and no additional complaints, except as documented *Musculoskeletal Musculoskeletal: Reports system reviewed and no additional complaints, except as documented Integumentary/Breasts Skin/Breast: Reports system reviewed and no additional complaints, except as documented *Neurologic Neurologic: Reports system reviewed and no additional complaints, except as documented and Reports weakness Psychiatric Psychiatric: Reports system reviewed and no additional complaints, except as documented Endocrine Endocrine: Reports system reviewed and no additional complaints, except as documented and Reports fatigue Hematologic/Lymphatic Hematologic/Lymphatic: Reports system reviewed and no additional complaints, except as documented Allergic/Immunologic Allergic/Immunologic: Reports system reviewed and no additional complaints, except as documented Exam Data for Last 24 hours Vital signs and Labs for Last 24 Hours: Temp Pulse Resp BP Pulse Ox O2 Del Method O2 Flow Rate 98.2 F 95 H 14 121/75 98 Room Air 2 09/29/23 11:32 09/29/23 13:55 09/29/23 13:55 09/29/23 13:55 09/29/23 13:55 09/29/23 13:30 09/29/23 13:25 Laboratory Results - last 24 hr 09/29/23 07:10: WBC 6.8, RBC 5.22, Hgb 15.5, Hct 45.7, MCV 87.6, MCH 29.6, MCHC 33.8, RDW 15.8, Plt Count 133 L, MPV 8.8, Neut % (Auto) 75.5, Lymph % (Auto) 12.3, [place] % (Auto) 6.9, Eos % (Auto) 4.5, Baso % (Auto) 0.8, Neut # (Auto) 5.1, Lymph # (Auto) 0.8, [place] # (Auto) 0.5, Eos # (Auto) 0.3, Baso # (Auto) 0.1, PT 11.4, INR 1.06, APTT 27.0, Sodium 138, Potassium 3.4 L, Chloride 102, Carbon Dioxide 30, Anion Gap 9.4, BUN 14, Creatinine 1.00, Estimated Creat Clear 76, Estimated GFR 76, Est GFR ( Amer) 92, Glucose 313 H, Calcium 8.6, Total Bilirubin 0.7, AST 36, ALT 37, Alkaline Phosphatase 68, Troponin I 0.09 H, NT-Pro-B Natriuret Pep 2370 H, Total Protein 7.5, Albumin 4.0, Globulin 3.5 H, Albumin/Globulin Ratio 1.1 09/29/23 10:15: Troponin I 0.08 H I & O for Last 24 hours: Intake & Output 09/26/23 09/27/23 09/28/23 09/29/23 23:59 23:59 23:59 23:59 Weight 292 lb 3 oz Constitutional Constitutional: no acute distress and morbidly obese *Routine HEENT Exam Head: Present normocephalic and atraumatic ENT: Present mucous membranes moist *Routine Neck Exam Neck: Present supple, full ROM and normal carotid upstroke; Absent JVD, carotid bruit or lymphadenopathy *Routine Respiratory Exam Respiratory: Present CTA bilaterally, normal respiratory effort, able to speak in complete sentences and symmetric chest movement *Routine Cardiovascular Exam Cardiovascular: Present RRR, Normal S1 and Normal S2; Absent murmur or gallop *Routine Abdominal Exam Abdominal: Present soft and normoactive bowel sounds; Absent tenderness, distended or organomegaly *Routine Extremities Exam Extremities: Present full ROM, pulses intact and normal capillary refill; Absent cyanosis, clubbing or edema *Routine Skin Exam Skin: Present intact and warm; Absent erythema *Routine Neurological Exam Neurological: Present alert, oriented X3 and CN II-XII intact; Absent sensory deficit or motor deficit Routine Psychiatric Exam Psychiatric: Present normal affect Meds Home Medications and Allergies Home Medications Medication Instructions Recorded Confirmed Type amlodipine 5 mg tablet 5 mg PO DAILY 10/30/18 09/29/23 History glimepiride 4 mg tablet 8 mg PO DAILY Diabetes 10/30/18 09/29/23 History lisinopril 20 1 tab PO DAILY 10/30/18 09/29/23 History mg-hydrochlorothiazide 12.5 mg tablet pravastatin 40 mg tablet 40 mg PO HS Cholesterol 10/30/18 09/29/23 History cholecalciferol (vitamin D3) 25 2,000 unit PO DAILY 02/10/19 09/29/23 History mcg (1,000 unit) capsule lenalidomide 10 mg capsule 10 mg PO HS CHEMO 10/16/20 09/29/23 History insulin degludec 100 unit/mL (3 15 units SQ BID Diabetes 10/17/20 09/29/23 History mL) subcutaneous pen (Tresiba FlexTouch U-100 insulin) potassium chloride 20 mEq 20 meq PO DAILY 10/17/20 09/29/23 History tablet,extended release(part/cryst) tramadol 50 mg tablet 50 mg PO TID #270 tabs 09/11/23 09/29/23 Rx linagliptin 2.5 mg-metformin 1,000 1 tab PO BIDWMEAL 09/29/23 09/29/23 History mg tablet (Jentadueto) New Prescriptions to Start Prescriptions: Allergies Allergy/AdvReac Type Severity Reaction Status Date / Time No Known Allergies Allergy Verified 04/07/23 19:39 Assessment and Plan *Assessment and plan (1) Elevated troponin: Status: Acute Category: Medical Code(s): R79.89 - Other specified abnormal findings of blood chemistry (2) Acute saddle pulmonary embolism: Status: Acute Qualifiers: Acute cor pulmonale presence: with acute cor pulmonale Qualified Code(s): I26.02 - Saddle embolus of pulmonary artery with acute cor pulmonale Category: Medical Code(s): I26.92 - Saddle embolus of pulmonary artery without acute cor pulmonale (3) History of multiple myeloma: Status: Acute Category: Medical Code(s): Z85.79 - Personal history of other malignant neoplasms of lymphoid, hematopoietic and related tissues (4) HTN (hypertension): Status: Acute Qualifiers: Hypertension type: primary hypertension Qualified Code(s): I10 - Essential (primary) hypertension Category: Medical Code(s): I10 - Essential (primary) hypertension (5) HLD (hyperlipidemia): Status: Acute Qualifiers: Hyperlipidemia type: mixed hyperlipidemia Qualified Code(s): E78.2 - Mixed hyperlipidemia Category: Medical Code(s): E78.5 - Hyperlipidemia, unspecified Plan Plan: 1. This is a 58-year-old gentleman who presented to the emergency department with weakness, shortness of breath and chest pain. The patient was found to have saddle pulmonary emboli. The patient will be taken to the [facility] to undergo embolectomy of the pulmonary emboli. 2. The patient has been educated on the risks and benefits of proceeding with the embolectomy. The patient verbalizes understanding and is agreeable in proceeding with the procedure. 3. The patient will be n.p.o. in preparation for embolectomy. 4. Will obtain a echocardiogram to evaluate his LV function and to evaluate the RV strain as well. 5. His blood pressure is well-controlled. Continue lisinopril HCT and amlodipine. 6. His LDL goal is less than 100. Will get a lipid panel in the morning. On a statin. 7. The patient is diabetic. He will need aggressive control of his diabetes. Will defer management this to the hospitalist. 8. Further recommendations will be made pending the patient's response to treatment and the results of his echocardiogram and embolectomy today. Thank you for the opportunity to help participate in the care of this patient. All recommendations and orders are per Dr. Hernandez.
--- NOTE | 2023-09-29 16:23 | PC.NURSE ---
Z Stitch removed at 1530. Pt will be able to start sitting up gradually at 1630.
--- NOTE | 2023-09-29 17:00 | P.HP_ITS ---
History of Present Illness *Admission Date: 09/29/23 *Reason for visit:: SOB and weakness *History of present illness: History of present illness: This is a 58-year-old white gentleman who presented to the emergency department with complaints of weakness. The patient states that he has a history of multiple myeloma in remission on maintenance medication, hypertension, hyperlipidemia, diabetes and a history of DVT. The patient reports that he was at a gun show this weekend and they loaded the truck yesterday and he had sudden onset of weakness and shortness of breath. The patient states that he felt like he had some tightness in his chest and did not feel well. He states that this tightness was in the substernal aspect of his chest that did not radiate and was associated with profound shortness of breath. His gave him 2 aspirin and the chest pain subsided. His shortness of breath also improved and he was just weak the rest of the day. He states that he got up this morning unloaded the truck and went in to eat breakfast when he had sudden onset of the weakness ag ain. He states that he just felt very tired and like he was unable to do anything. He denied any chest pain or shortness of breath this morning. But due to the extreme nature of the fatigue and weakness he decided to come into the emergency department. The patient was found to have saddle pulmonary emboli causing RV strain on CT. He denies any fever, chills, nausea, vomiting, diarrhea, PND orthopnea. Of note, the patient does report he has a history of multiple myeloma in remission. He is on a daily maintenance medication which he states that his oncologist told him could cause pulmonary emboli. He was taking prophylactic anticoagulation with Lovenox injections for several years and then was switched over to oral Xarelto. However his insurance no longer covers Xarelto and he was only taking aspirin for anticoagulation. the above as per cardiology. Patient was taken to the cardiac catheterization lab with interventional procedure with following results: IMPRESSION Successful right heart catheterization pre and post mechanical thrombectomy Successful mechanical thrombectomy of the main pulmonary artery, right pulmonary artery, left pulmonary artery, segmental branches of the right upper middle and lower pulmonary artery as well as segmental branches of the left upper and lower pulmonary arteries At the time of this exam patient is lying flat in the bed On the medical floor and appears very comfortable. He Is conversant and answers all questions appropriately. is at bedside. Vital signs are stable. He denies chest pain and shortness of breath. [facility] Disclaimer: The information contained in this section may have been updated after the pat ient was seen, as this information can be updated by other users. Medical History (Updated 09/29/23 @ 17:19 by Li Galaviz APRN) Cancer Chronic pain syndrome Diabetes DVT (deep venous thrombosis) History of DVT (deep vein thrombosis) History of multiple myeloma HLD (hyperlipidemia) HTN (hypertension) Hypertension Surgical History H/O kyphoplasty Hx of tonsillectomy Family History Other Diabetes Heart attack Hyperlipidemia Hypertension Social History (Updated 09/29/23 @ 17:09 by Li Galaviz APRN) Smoking Status: Unknown if ever smoked alcohol intake: never current occupational status: unemployed and disabled Travel in the last 8 weeks: None household members: spouse caffeine: Yes Review of Systems Constitutional Constitutional: Reports fatigue, Denies fever(s), Denies headache(s) and Reports weakness Eyes Eyes: Reports change in vision (Recent cataract surgery 3 months ago) ENT Ears, Nose, Mouth, and Throat: Denies otalgia, Denies headache(s) and Denies sore throat *Cardiovascular Cardiovascular: Reports chest pain, Reports dyspnea and Reports leg edema *Respiratory Respiratory: Denies chest congestion, Denies cough, Reports dyspnea and Denies hemoptysis *Gastrointestinal Gastrointestinal: Denies change in stool character, Denies dyspepsia, Denies nausea and Denies vomiting *Genitourinary Genitourinary: Denies dysuria *Musculoskeletal Musculoskeletal: Reports back pain (Chronic) and Reports tingling (Hands and feet) *Neurologic Neurologic: Reports system reviewed and no additional complaints, except as documented, Denies headache(s), Reports tingling (Hands and feet) and Reports weakness Endocrine Endocrine: Reports fatigue Meds Home Medications and Allergies Home Medications Medication Instructions Recorded Confirmed Type amlodipine 5 mg tablet 5 mg PO DAILY 10/30/18 09/29/23 History glimepiride 4 mg tablet 8 mg PO DAILY Diabetes 10/30/18 09/29/23 History lisinopril 20 1 tab PO DAILY 10/30/18 09/29/23 History mg-hydrochlorothiazide 12.5 mg tablet pravastatin 40 mg tablet 40 mg PO HS Cholesterol 10/30/18 09/29/23 History cholecalciferol (vitamin D3) 25 2,000 unit PO DAILY 02/10/19 09/29/23 History mcg (1,000 unit) capsule lenalidomide 10 mg capsule 10 mg PO HS CHEMO 10/16/20 09/29/23 History insulin degludec 100 unit/mL (3 15 units SQ BID Diabetes 10/17/20 09/29/23 History mL) subcutaneous pen (Tresiba FlexTouch U-100 insulin) potassium chloride 20 mEq 20 meq PO DAILY 10/17/20 09/29/23 History tablet,extended release(part/cryst) tramadol 50 mg tablet 50 mg PO TID #270 tabs 09/11/23 09/29/23 Rx linagliptin 2.5 mg-metformin 1,000 1 tab PO BIDWMEAL 09/29/23 09/29/23 History mg tablet (Jentadueto) New Prescriptions to Start Prescriptions: Allergies Allergy/AdvReac Type Severity Reaction Status Date / Time No Known Allergies Allergy Verified 04/07/23 19:39 Exam Data for Last 24 hours Vital signs and Labs for Last 24 Hours: Temp Pulse Resp BP Pulse Ox O2 Del Method O2 Flow Rate 97.9 F 87 19 97/49 L 94 L Nasal Cannula 1 09/29/23 16:10 09/29/23 16:10 09/29/23 16:10 09/29/23 16:10 09/29/23 16:10 09/29/23 15:53 09/29/23 15:53 FiO2 95 09/29/23 16:10 Laboratory Results - last 24 hr 09/29/23 07:10: WBC 6.8, RBC 5.22, Hgb 15.5, Hct 45.7, MCV 87.6, MCH 29.6, MCHC 33.8, RDW 15.8, Plt Count 133 L, MPV 8.8, Neut % (Auto) 75.5, Lymph % (Auto) 12.3, [place] % (Auto) 6.9, Eos % (Auto) 4.5, Baso % (Auto) 0.8, Neut # (Auto) 5.1, Lymph # (Auto) 0.8, [place] # (Auto) 0.5, Eos # (Auto) 0.3, Baso # (Auto) 0.1, PT 11.4, INR 1.06, APTT 27.0, Sodium 138, Potassium 3.4 L, Chloride 102, Carbon Dioxide 30, Anion Gap 9.4, BUN 14, Creatinine 1.00, Estimated Creat Clear 76, Estimated GFR 76, Est GFR ( Amer) 92, Glucose 313 H, Calcium 8.6, Total Bilirubin 0.7, AST 36, ALT 37, Alkaline Phosphatase 68, Troponin I 0.09 H, NT-Pro-B Natriuret Pep 2370 H, Total Protein 7.5, Albumin 4.0, Globulin 3.5 H, Albumin/Globulin Ratio 1.1 09/29/23 10:15: Troponin I 0.08 H I & O for Last 24 hours: Intake & Output 09/27/23 09/28/23 09/29/23 09/30/23 11:59 11:59 11:59 11:59 Intake Total 240 / 240 Balance 240 / 240 Weight 300 lb 292 lb 3 oz Constitutional Constitutional: no acute distress Comments: Lying flat in bed and appears most comfortable *Routine HEENT Exam Head: Present normocephalic and atraumatic Eye: Present PERRL; Absent conjunctival icterus, scleral injection or conjunctivae pink ENT: Present mucous membranes moist and oropharynx clear *Routine Neck Exam Neck: Present supple; Absent carotid bruit, lymphadenopathy or thyromegaly *Routine Respiratory Exam Respiratory: Present CTA bilaterally *Routine Cardiovascular Exam Cardiovascular: Present RRR *Routine Abdominal Exam Abdominal: Present soft, normoactive bowel sounds and obese; Absent tenderness or distended Comments: right groin dressing clean and dry *Routine Rectal Exam Rectal:: deferred *Routine Genitalia Exam Genitalia:: deferred *Routine Extremities Exam Extremities: Present edema (bilateral ); Absent pulses intact (poor bilateral) *Routine Neurological Exam Neurological: Present alert and oriented X3 Assessment and Plan *Assessment and plan (1) Acute saddle pulmonary embolism: Status: Acute Qualifiers: Acute cor pulmonale presence: with acute cor pulmonale Qualified Code(s): I26.02 - Saddle embolus of pulmonary artery with acute cor pulmonale Category: Medical Code(s): I26.92 - Saddle embolus of pulmonary artery without acute cor pulmonale (2) History of DVT (deep vein thrombosis): Status: Acute Category: Medical Code(s): Z86.718 - Personal history of other venous thrombosis and embolism (3) Non compliance w medication regimen: Status: Acute Category: Medical Code(s): Z91.148 - Patient's other noncompliance with medication regimen for other reason (4) Chronic pain syndrome: Status: Acute Category: Medical Code(s): G89.4 - Chronic pain syndrome (5) History of multiple myeloma: Status: Acute Category: Medical Code(s): Z85.79 - Personal history of other malignant neoplasms of lymphoid, hematopoietic and related tissues (6) Hypertension: Status: Chronic Category: Medical Code(s): I10 - Essential (primary) hypertension (7) HTN (hypertension): Status: Acute Qualifiers: Hypertension type: primary hypertension Qualified Code(s): I10 - Esse ntial (primary) hypertension Category: Medical Code(s): I10 - Essential (primary) hypertension (8) HLD (hyperlipidemia): Status: Acute Qualifiers: Hyperlipidemia type: mixed hyperlipidemia Qualified Code(s): E78.2 - Mixed hyperlipidemia Category: Medical Code(s): E78.5 - Hyperlipidemia, unspecified (9) T2DM (type 2 diabetes mellitus): Status: Acute Category: Medical Code(s): E11.9 - Type 2 diabetes mellitus without complications Plan Patient has had an embolectomy. He will be followed by cardiology. placed on SSI Dr. Archuleta entry - Saw patient, agree with above note.
[2023-09-29 20:39] LABS: POC Glucose,Bedside 327 (70-110)
[2023-09-29] MEDS: ENOXAPARIN 150MG/ML SYRINGE 135 MG SQ (21:05)
[2023-09-29] MEDS: humaLOG 100 UNITS/ML 3ML VIAL (SSI) SQ (21:06)
[2023-09-30] VITALS (9 sets, daily range): BP systolic 100–127; BP diastolic 63–72; PULSE 89–102; RESP 18–20; TEMP 36.5–36.8; O2SAT 94–97; BMI 44.6
--- NOTE | 2023-09-30 05:03 | PC.NURSE ---
Patient has rested well this shift with no acute changes. No complaints of acute pain or shortness of breath. Patient was placed on 2LNC because he desated to 87-89% while sleeping. Pressure dressing to right femoral is in place c/d/i pulses are present. Call estevez, bedside table, water pitcher and personal belongings all within reach. Care is ongoing/.
[2023-09-30] MEDS: humaLOG 100 UNITS/ML 3ML VIAL (SSI) SQ ×2 (06:15→12:21)
[2023-09-30 06:36] LABS: POC Glucose,Bedside 212 (70-110)
[2023-09-30 07:07] LABS: Basophils # 0.1 K/mm3 (0-0.2); Basophils % 1.5 % (0.1-2.0); Eosinophils # 0.4 K/mm3 (0.0-0.4); Hematocrit 37.6 % (42.0-52.0); Lymphocytes # 0.9 K/mm3 (0.7-4.5); Lymphocytes % 17.2 % (10-50); Mean Corpuscular HGB Conc 33.4 g/dL (31.8-35.4); Mean Corpuscular Hemoglobin 29.8 pg (27.0-31.2); Mean Corpuscular Volume 89.4 fl (80-94); Mean Platelet Volume 9.5 fl (7.4-10.4); Monocytes # 0.3 K/mm3 (0.1-1.0); Monocytes % 5.7 % (1.7-9.3); Neutrophils # 3.6 K/mm3 (1.8-7.8); Neutrophils % 67.6 % (37.0-80.0); Platelet Count 141 K/mm3 (142-424); Red Cell Distribution Width 15.9 % (11.5-17.5); White Blood Count 5.3 K/mm3 (4.8-10.8)
[2023-09-30 07:09] LABS: Hemoglobin 12.5 g/dL (14.1-18.0)
[2023-09-30 07:16] LABS: Chloride 104 mmol/L (98-107); Potassium 3.4 mmoL/L (3.5-5.1); Sodium 136 mmol/L (136-145)
[2023-09-30 07:19] LABS: Anion Gap 8.4 mEq/L (5-15); Blood Urea Nitrogen 14 mg/dl (9-20); Calcium 7.8 mg/dl (8.4-10.2); Carbon Dioxide 27 mmol/L (22.0-30.0); Creatinine Clearance Estimated 76 mL/min (50-200); Estimated Glomerular Filt Rate 76 ml/min (>60); GFR (African American) 92 ML/MIN (>60); Glucose 202 mg/dl (74-100)
--- NOTE | 2023-09-30 08:57 | EXP.ACUTE.PN ---
Subjective *Date: 09/30/23 *Time: 12:49 Interval history: Mr. Pathak is ready to go home. He states he feels fine. He denies chest pain and shortness of breath. He has completed his breakfast and states his appetite has returned. Medical Exam Vital signs and Labs for Last 24 Hours: Vital Signs Temp Pulse Pulse Resp BP BP Pulse Ox 09/30/23 08:07 97.7 F 09/30/23 04:00 98.0 F 09/30/23 04:00 90 09/30/23 04:00 89 18 106/63 L 97 09/30/23 02:00 93 H 18 100/63 L 94 L 09/30/23 00:00 90 09/30/23 01:00 09/30/23 00:00 98.3 F 09/29/23 20:40 102 H 20 108/60 L 93 L 09/29/23 19:40 93 H 18 157/71 H 93 L 09/29/23 20:00 96 H 09/29/23 22:00 63 20 130/70 99 09/29/23 20:00 97.8 F 09/29/23 18:40 103 H 16 128/44 L 95 09/29/23 17:40 93 H 16 124/75 92 L 09/29/23 18:54 09/29/23 16:40 79 19 113/67 95 09/29/23 16:00 90 09/29/23 17:00 09/29/23 15:40 90 20 112/64 95 09/29/23 16:10 97.9 F 87 19 97/49 L 94 L 09/29/23 15:10 91 H 20 112/64 91 L 09/29/23 14:40 93 H 20 99/53 L 93 L 09/29/23 14:25 92 H 16 104/62 L 94 L 09/29/23 14:10 92 H 16 102/60 L 95 09/29/23 15:53 09/29/23 15:00 09/29/23 13:55 95 H 14 121/75 98 09/29/23 13:40 97 H 18 95/67 L 98 09/29/23 13:39 97 H 09/29/23 13:35 92 H 18 91/55 L 95 09/29/23 13:30 98 H 18 103/77 L 90 L 09/29/23 13:25 99 H 18 125/62 98 09/29/23 11:32 98.2 F 98 H 22 122/77 09/29/23 09:00 98 H 22 127/77 91 L O2 Del Method O2 Flow Rate FiO2 09/30/23 08:07 09/30/23 04:00 09/30/23 04:00 09/30/23 04:00 Nasal Cannula 2 09/30/23 02:00 Nasal Cannula 2 09/30/23 00:00 09/30/23 01:00 Nasal Cannula 2 09/30/23 00:00 09/29/23 20:40 09/29/23 19:40 09/29/23 20:00 09/29/23 22:00 BiPAP 09/29/23 20:00 09/29/23 18:40 Room Air 09/29/23 17:40 Nasal Cannula 1 09/29/23 18:54 Room Air 09/29/23 16:40 Nasal Cannula 1 09/29/23 16:00 09/29/23 17:00 Nasal Cannula 1 09/29/23 15:40 Nasal Cannula 1 09/29/23 16:10 Nasal Cannula 1 09/29/23 15:10 Nasal Cannula 1 09/29/23 14:40 Nasal Cannula 1 94 09/29/23 14:25 Nasal Cannula 1 93 09/29/23 14:10 Nasal Cannula 1 97 09/29/23 15:53 Nasal Cannula 1 09/29/23 15:00 Nasal Cannula 1 09/29/23 13:55 09/29/23 13:40 09/29/23 13:39 09/29/23 13:35 09/29/23 13:30 Room Air 09/29/23 13:25 Nasal Cannula 2 09/29/23 11:32 Room Air 09/29/23 09:00 Intake and Output 09/29/23 09/30/23 09/30/23 19:59 03:59 11:59 Intake Total 930 / 930 240 / 1170 240 / 1410 Output Total 200 / 200 400 / 600 Balance 930 / 930 40 / 970 -160 / 810 Intake: Intake, Oral Amount 930 / 930 240 / 1170 240 / 1410 Output: Output, Urine Amount 200 / 200 400 / 600 Other: Number of Unmeasured Voids 0 Weight 292 lb 3 oz 294 lb 2 oz Patient Weight 09/30/23 11:59 Weight 294 lb 2 oz Laboratory Results - last 24 hr 09/29/23 07:10: PT 11.4, INR 1.06, APTT 27.0 09/29/23 10:15: Troponin I 0.08 H 09/29/23 20:31: POC Glucose 327 H* 09/30/23 06:10: POC Glucose 212 H 09/30/23 06:36: WBC 5.3, RBC 4.20 L, Hgb 12.5 L D, Hct 37.6 L, MCV 89.4, MCH 29.8, MCHC 33.4, RDW 15.9, Plt Count 141 L, MPV 9.5, Neut % (Auto) 67.6, Lymph % (Auto) 17.2, [place] % (Auto) 5.7, Eos % (Auto) 8.0, Baso % (Auto) 1.5, Neut # (Auto) 3.6, Lymph # (Auto) 0.9, [place] # (Auto) 0.3, Eos # (Auto) 0.4, Baso # (Auto) 0.1, Sodium 136, Potassium 3.4 L, Chloride 104, Carbon Dioxide 27, Anion Gap 8.4, BUN 14, Creatinine 1.00, Estimated Creat Clear 76, Estimated GFR 76, Est GFR ( Amer) 92, Glucose 202 H D, Calcium 7.8 L I & O for Labs for Last 24 Hours: Intake & Output 09/27/23 09/28/23 09/29/23 09/30/23 11:59 11:59 11:59 11:59 Intake Total 1410 / 1410 Output Total 600 / 600 Balance 810 / 810 Weight 300 lb 294 lb 2 oz Constitutional: Present no acute distress Comment:: Sitting up in bedside chair and appears very comfortable Respiratory: Present CTA bilaterally (Anteriorly and posteriorly with good bilateral breath sounds) Cardiac: Present Reg Rate and Rhythm GI: Present soft and normal bowel sounds; Absent distention, tenderness or guarding Extremities: Present normal inspection and full ROM; Absent tenderness, edema or calf tenderness Neuro: Present alert, awake and oriented x 3 Assessment and Plan *Assessment and plan (1) Acute saddle pulmonary embolism: Status: Acute Qualifiers: Acute cor pulmonale presence: with acute cor pulmonale Qualified Code(s): I26.02 - Saddle embolus of pulmonary artery with acute cor pulmonale Category: Medical Code(s): I26.92 - Saddle embolus of pulmonary artery without acute cor pulmonale (2) History of DVT (deep vein thrombosis): Status: Acute Category: Medical Code(s): Z86.718 - Personal history of other venous thrombosis and embolism (3) Non compliance w medication regimen: Status: Acute Category: Medical Code(s): Z91.148 - Patient's other noncompliance with medication regimen for other reason (4) Chronic pain syndrome: Status: Acute Category: Medical Code(s): G89.4 - Chronic pain syndrome (5) History of multiple myeloma: Status: Acute Category: Medical Code(s): Z85.79 - Personal history of other malignant neoplasms of lymphoid, hematopoietic and related tissues (6) Hypertension: Status: Chronic Category: Medical Code(s): I10 - Essential (primary) hypertension (7) HTN (hypertension): Status: Acute Qualifiers: Hypertension type: primary hypertension Qualified Code(s): I10 - Essential (primary) hypertension Category: Medical Code(s): I10 - Essential (primary) hypertension (8) HLD (hyperlipidemia): Status: Acute Qualifiers: Hyperlipidemia type: mixed hyperlipidemia Qualified Code(s): E78.2 - Mixed hyperlipidemia Category: Medical Code(s): E78.5 - Hyperlipidemia, unspecified (9) T2DM (type 2 diabetes mellitus): Status: Acute Category: Medical Code(s): E11.9 - Type 2 diabetes mellitus without complications Plan Cardiology to follow. Meds as per them. Discussed compliance with medication. Probably home today. Dr. Archuleta entry - Saw patient, agree with above note. Discharge home today
[2023-09-30] MEDS: ENOXAPARIN 150MG/ML SYRINGE 135 MG SQ (09:12)
[2023-09-30 09:16] LABS: Chol/HDL Ratio 4.6 (1-3.5); Cholesterol 110 mg/dl (140-200); HDL Cholesterol 24 mg/dl (40-60); Triglycerides 162 mg/dl (30-150); VLDL Cholesterol 32 mg/dL (0-40)
[2023-09-30 09:17] LABS: Alanine Aminotransferase 27 U/L (12-78); Albumin Level 3.4 g/dl (3.5-5.0); Alkaline Phosphatase 63 U/L (38-126); Aspartate Amino Transferase 29 U/L (17-59); Bilirubin,Direct 0.2 mg/dl (0.0-0.4); Bilirubin,Indirect 0.2 mg/dL (0.0-0.9); Bilirubin,Total 0.4 mg/dl (0.2-1.3); Bilirubin,Unconjugated 0.2 mg/dL (0.0-1.1); Cholesterol 110 mg/dl (140-200); HDL Cholesterol 22 mg/dl (40-60); Total Protein,Serum 6.5 g/dl (6.3-8.2); Triglycerides 164 mg/dl (30-150); VLDL Cholesterol 33 mg/dL (0-40)
[2023-09-30 09:27] LABS: Direct LDL Cholesterol 67.11 mg/dL (100-129)
[2023-09-30 09:28] LABS: Direct LDL Cholesterol 65.95 mg/dL (100-129)
[2023-09-30 12:46] LABS: POC Glucose,Bedside 310 (70-110)
--- NOTE | 2023-09-30 13:08 | P.PN_ITS ---
Subjective Subjective Date: 09/30/23 Time: 10:30 Principal diagnosis: saddle PE Interval history: This is a 58-year-old gentleman this is a 58-year-old gentleman who presents to the emergency department complaints of weakness and shortness of breath. He was found to have saddle pulmonary emboli. He underwent right cardiac catheterization with mechanical thrombectomy. He tolerated the procedure well and has been on Lovenox for anticoagulation. This morning he denies any chest pain or pressure. He denies any shortness of breath or edema. He denies any fever, chills, nausea, vomiting, diarrhea, PND orthopnea. He states that he no longer feels weak and fatigued. The patient is very anxious to go home today. Exam Data for Last 24 hours Vital signs and Labs for Last 24 Hours: Temp Pulse Resp BP Pulse Ox O2 Del Method O2 Flow Rate 97.9 F 99 H 18 111/63 95 Room Air 2 09/30/23 11:13 09/30/23 12:00 09/30/23 12:00 09/30/23 12:00 09/30/23 12:00 09/30/23 12:00 09/30/23 04:00 FiO2 95 09/29/23 16:10 Laboratory Results - last 24 hr 09/29/23 20:31: POC Glucose 327 H* 09/30/23 06:10: POC Glucose 212 H 09/30/23 06:36: WBC 5.3, RBC 4.20 L, Hgb 12.5 L D, Hct 37.6 L, MCV 89.4, MCH 29.8, MCHC 33.4, RDW 15.9, Plt Count 141 L, MPV 9.5, Neut % (Auto) 67.6, Lymph % (Auto) 17.2, [place] % (Auto) 5.7, Eos % (Auto) 8.0, Baso % (Auto) 1.5, Neut # (Auto) 3.6, Lymph # (Auto) 0.9, [place] # (Auto) 0.3, Eos # (Auto) 0.4, Baso # (Auto) 0.1, Sodium 136, Potassium 3.4 L, Chloride 104, Carbon Dioxide 27, Anion Gap 8.4, BUN 14, Creatinine 1.00, Estimated Creat Clear 76, Estimated GFR 76, Est GFR ( Amer) 92, Glucose 202 H D, Calcium 7.8 L, Total Bilirubin 0.4, Direct Bilirubin 0.2, Conjugated Bilirubin 0.0, Indirect Bilirubin 0.2, Unconjugated Bilirubin 0.2, AST 29, ALT 27 D, Alkaline Phosphatase 63, Total Protein 6.5, Albumin 3.4 L D, Triglycerides 164 H 09/30/23 06:36: Triglycerides 162 H, Cholesterol 110 L 09/30/23 06:36: Cholesterol 110 L, LDL Cholesterol Direct 65.95 L 09/30/23 06:36: LDL Cholesterol Direct 67.11 L, VLDL Cholesterol 33 09/30/23 06:36: VLDL Cholesterol 32, HDL Cholesterol 22 L 09/30/23 06:36: HDL Cholesterol 24 L, Cholesterol/HDL Ratio 5.0 H 09/30/23 06:36: Cholesterol/HDL Ratio 4.6 H 09/30/23 11:56: POC Glucose 310 H* I & O for Last 24 hours: Intake & Output 09/27/23 09/28/23 09/29/23 09/30/23 23:59 23:59 23:59 23:59 Intake Total 930 / 1170 960 / 960 Output Total 200 / 200 400 / 400 Balance 730 / 970 560 / 560 Weight 292 lb 3 oz 294 lb 2 oz Narrative: Echo shows: Technically difficult study due to poor acoustic windows. Normal LV systolic function. Moderate to severe RV dilation with moderate RV dysfunction. Septal flattening present, consistent with RV pressure/volume overload. No significant valvular stenosis or regurgitation. Constitutional Constitutional: no acute distress and morbidly obese *Routine HEENT Exam Head: Present normocephalic and atraumatic ENT: Present mucous membranes moist *Routine Neck Exam Neck: Present supple, full ROM and normal carotid upstroke; Absent JVD, carotid bruit or lymphadenopathy *Routine Respiratory Exam Respiratory: Present CTA bilaterally, normal respiratory effort, able to speak in complete sentences and symmetric chest movement *Routine Cardiovascular Exam Cardiovascular: Present RRR, Normal S1 and Normal S2; Absent murmur or gallop *Routine Abdominal Exam Abdominal: Present soft and normoactive bowel sounds; Absent tenderness, distended or organomegaly *Routine Extremities Exam Extremities: Present full ROM, pulses intact and normal capillary refill; Absent cyanosis, clubbing or edema *Routine Skin Exam Skin: Present intact and warm; Absent erythema *Routine Neurological Exam Neurological: Present alert, oriented X3 and CN II-XII intact; Absent sensory deficit or motor deficit Routine Psychiatric Exam Psychiatric: Present normal affect Progress Note: A&P Assessment and plan (1) Acute saddle pulmonary embolism: Status: Acute (2) Elevated troponin: Status: Acute (3) Right ventricular dilation: Status: Acute (4) History of DVT (deep vein thrombosis): Status: Acute (5) History of multiple myeloma: Status: Acute (6) Hypertension: Status: Chronic (7) HLD (hyperlipidemia): Status: Acute (8) T2DM (type 2 diabetes mellitus): Status: Acute Assessment and Plan Assessment and Plan for All Diagnoses:: Plan: 1. This is a 58-year-old gentleman who presented to the emergency department with weakness, shortness of breath and chest pain. The patient was found to have saddle pulmonary emboli. The patient underwent right cardiac catheterization with mechanical thrombectomy. He did have successful mechanical thrombectomy of the main pulmonary artery, right pulmonary artery, left pulmonary artery, segmental branches of the right upper middle and lower pulmonary artery as well as the segmental branches of the left upper and lower pulmonary arteries. The patient tolerated the procedure well. 2. The patient remains on Lovenox for anticoagulation at this time. 3. Prior to discharge home the patient will need to be switched over to Xarelto 15 mg p.o. twice daily for 3 weeks for long-term anticoagulation. Then he will be on Xarelto 20 mg daily thereafter. The patient will need to be on long-term anticoagulation indefinitely. 4. The patient reports having an issue with his insurance company approving his Xarelto in the past. He has been sent home with samples today. If he is going to have a cost issue with his Xarelto then we will try to get Eliquis approved and if not the patient will have to be on Coumadin. He has verbalized understanding. 5. His echocardiogram showed a normal ejection fraction with moderate to severe RV dilatation with moderate RV dysfunction and septal flattening consistent with RV pressure and volume overload from the PE. He will need to have a repeat echocardiogram in approximately 1 month to make sure the RV strain has improved. 6. His blood pressure is well-controlled. 7. His LDL goal is less than 100. His LDL is 67. On a statin. 8. The patient is diabetic. He will need aggressive control of his diabetes. Will defer management this to the hospitalist. 9. No further recommendations at this time from a cardiac standpoint. The patient can be discharged home today from a cardiac standpoint with follow-up in cardiology clinic in 1 to 2 weeks on an outpatient basis. The patient will need to be discharged on the following cardiac medications: Xarelto 15 mg p.o. twice daily for 3 weeks then 20 mg daily thereafter, amlodipine 5 mg daily, lisinopril HCT 20/25 mg daily, Lipitor 40 mg p.o. daily. Thank you for the opportunity to help participate in the care of this patient. All recommendations and orders are per Dr. Hernandez.
--- NOTE | 2023-10-02 14:46 | CARE MANAGER ---
Contacted patient related to hospital discharge. He states he is doing well. He has his new medicine and is aware of follow up appointments. DOYLE Love
--- NOTE | 2023-10-05 23:07 | P.DS_ITS ---
General Admission date:: 09/29/23 Discharge date: 09/30/23 HPI HPI HPI: History of present illness: This is a 58-year-old white gentleman who presented to the emergency department with complaints of weakness. The patient states that he has a history of multiple myeloma in remission on maintenance medication, hypertension, hyperlipidemia, diabetes and a history of DVT. The patient reports that he was at a gun show this weekend and they loaded the truck yesterday and he had sudden onset of weakness and shortness of breath. The patient states that he felt like he had some tightness in his chest and did not feel well. He states that this tightness was in the substernal aspect of his chest that did not radiate and was associated with profound shortness of breath. His gave him 2 aspirin and the chest pain subsided. His shortness of breath also improved and he was just weak the rest of the day. He states that he got up this morning unloaded the truck and went in to eat breakfast when he had sudden onset of the weakness again. He states that he just felt very tired and like he was unable to do anything. He denied any chest pain or shortness of breath this morning. But due to the extreme nature of the fatigue and weakness he decided to come into the emergency department. The patient was found to have saddle pulmonary emboli causing RV strain on CT. He denies any fever, chills, nausea, vomiting, diarrhea, PND orthopnea. Of note, the patient does report he has a history of multiple myeloma in remission. He is on a daily maintenance medication which he states that his oncologist told him could cause pulmonary emboli. He was taking prophylactic anticoagulation with Lovenox injections for several years and then was switched over to oral Xarelto. However his insurance no longer covers Xarelto and he was only taking aspirin for anticoagulation. the above as per cardiology. Patient was taken to the cardiac catheterization lab with interventional procedure with following results: IMPRESSION Successful right heart catheterization pre and post mechanical thrombectomy Successful mechanical thrombectomy of the main pulmonary artery, right pulmonary artery, left pulmonary artery, segmental branches of the right upper middle and lower pulmonary artery as well as segmental branches of the left upper and lower pulmonary arteries At the time of this exam patient is lying flat in the bed On the medical floor and appears very comfortable. He Is conversant and answers all questions appropriately. is at bedside. Vital signs are stable. He denies chest pain and shortness of breath. Hospital Course Hospital Course Hospital Course: The patient had an embolectomy and was placed on SSI. By 09/30/2023 he denies any chest pain or shortness of breath and was eating well. He wanted to go home. He was switched over to Xarelto 15 mg twice daily and will need to remain on this for 3 weeks and then take Xarelto 20 mg daily thereafter. Cardiology felt he would need long-term anticoagulation indefinitely. His echocardiogram showed a normal EF with moderate to severe right ventricular dilatation with moderate right ventricular dysfunction and septal flattening consistent with right ventricular pressure and volume overload from his PE. It was felt he would need a repeat echo in 1 month to ensure the right ventricular strain improved. He was stable to be discharged home. Exam Data for Last 24 hours Vital signs and Labs for Last 24 Hours: Temp Pulse Resp BP Pulse Ox O2 Del Method O2 Flow Rate 97.9 F 99 H 18 121/66 95 Room Air 2 09/30/23 11:13 09/30/23 12:00 09/30/23 12:00 09/30/23 14:00 09/30/23 14:00 09/30/23 14:00 09/30/23 04:00 FiO2 95 09/29/23 16:10 Narrative: Constitutional Constitutional: no acute distress Comments: Lying flat in bed and appears most comfortable *Routine HEENT Exam Head: Present normocephalic and atraumatic Eye: Present PERRL; Absent conjunctival icterus, scleral injection or conjunctivae pink ENT: Present mucous membranes moist and oropharynx clear *Routine Neck Exam Neck: Present supple; Absent carotid bruit, lymphadenopathy or thyromegaly *Routine Respiratory Exam Respiratory: Present CTA bilaterally *Routine Cardiovascular Exam Cardiovascular: Present RRR *Routine Abdominal Exam Abdominal: Present soft, normoactive bowel sounds and obese; Absent tenderness or distended Comments: right groin dressing clean and dry *Routine Rectal Exam Rectal:: deferred *Routine Genitalia Exam Genitalia:: deferred *Routine Extremities Exam Extremities: Present edema (bilateral ); Absent pulses intact (poor bilateral) *Routine Neurological Exam Neurological: Present alert and oriented X3 DS: Diagnosis Discharge Diagnosis (1) Acute saddle pulmonary embolism: Status: Acute Code(s): I26.92 - Saddle embolus of pulmonary artery without acute cor pulmonale Qualifiers: Acute cor pulmonale presence: with acute cor pulmonale Qualified Code(s): I26.02 - Saddle embolus of pulmonary artery with acute cor pulmonale (2) Elevated troponin: Status: Acute Code(s): R79.89 - Other specified abnormal findings of blood chemistry (3) Right ventricular dilation: Status: Acute Code(s): I51.7 - Cardiomegaly (4) History of DVT (deep vein thrombosis): Status: Acute Code(s): Z86.718 - Personal history of other venous thrombosis and embolism (5) History of multiple myeloma: Status: Acute Code(s): Z85.79 - Personal history of other malignant neoplasms of lymphoid, hematopoiet ic and related tissues (6) Hypertension: Status: Chronic Code(s): I10 - Essential (primary) hypertension (7) HLD (hyperlipidemia): Status: Acute Code(s): E78.5 - Hyperlipidemia, unspecified Qualifiers: Hyperlipidemia type: mixed hyperlipidemia Qualified Code(s): E78.2 - Mixed hyperlipidemia (8) T2DM (type 2 diabetes mellitus): Status: Acute Code(s): E11.9 - Type 2 diabetes mellitus without complications Meds Home Medications and Allergies Home Medications Medication Instructions Recorded Confirmed Type amlodipine 5 mg tablet 5 mg PO DAILY 10/30/18 09/29/23 History glimepiride 4 mg tablet 8 mg PO DAILY Diabetes 10/30/18 09/29/23 History lisinopril 20 1 tab PO DAILY 10/30/18 09/29/23 History mg-hydrochlorothiazide 12.5 mg tablet pravastatin 40 mg tablet 40 mg PO HS Cholesterol 10/30/18 09/29/23 History cholecalciferol (vitamin D3) 25 2,000 unit PO DAILY 02/10/19 09/29/23 History mcg (1,000 unit) capsule lenalidomide 10 mg capsule 10 mg PO HS CHEMO 10/16/20 09/29/23 History insulin degludec 100 unit/mL (3 15 units SQ BID Diabetes 10/17/20 09/29/23 History mL) subcutaneous pen (Tresiba FlexTouch U-100 insulin) potassium chloride 20 mEq 20 meq PO DAILY 10/17/20 09/29/23 History tablet,extended release(part/cryst) tramadol 50 mg tablet 50 mg PO TID #270 tabs 09/11/23 09/29/23 Rx linagliptin 2.5 mg-metformin 1,000 1 tab PO BIDWMEAL 09/29/23 09/29/23 History mg tablet (Jentadueto) rivaroxaban 20 mg tablet (Xarelto) 20 mg PO DAILY #90 tabs 09/30/23 Rx New Prescriptions to Start Prescriptions: rivaroxaban [Xarelto] Bola Archuleta Allergies Allergy/AdvReac Type Severity Reaction Status Date / Time No Known Allergies Allergy Verified 04/07/23 19:39 Discharge Plan Disposition Patient Disposition: Home, Self-Care Condition: Good Discharge Order Discharge Orders: Discharge Order (Routine); Ordered 09/30/23 Ordered By: Bola Archuleta Follow up Plan Follow up with: Bola Archuelta MD [Primary Care Provider] - 10/10/23 10:30 am Efrain Saez MD [Staff Physician] - 10/14/23 2:15 pm Prescriptions/Medication Reconciliation: New Xarelto 20 mg tablet 20 mg PO DAILY Qty: 90 1RF Continued pravastatin 40 MG tablet 40 mg PO HS glimepiride 4 MG tablet 8 mg PO DAILY lisinopril-hydrochlorothiazide 1 EACH tablet 1 tab PO DAILY Rx Instructions: 20/25MG amlodipine 5 MG tablet 5 mg PO DAILY cholecalciferol (vitamin D3) 1,000 UNIT capsule 2,000 unit PO DAILY lenalidomide 10 MG capsule 10 mg PO HS potassium chloride 20 MEQ tablet 20 meq PO DAILY insulin degludec [Tresiba FlexTouch U-100] 100 UNIT/ML insulin pen 15 units SQ BID tramadol 50 mg tablet 50 mg PO TID Qty: 270 0RF Jentadueto 2.5-1,000 mg tablet 1 tab PO BIDWMEAL Patient Comments: TAKE 1 TABLET BY MOUTH TWICE A DAY FOR 90 DAYS Problem Reconciliation Problems Reviewed?: Yes Patient Discharge Instructions ACTIVITY: Limited activity DIET: advance to your usual diet Patient Instructions: Cardiac Catheterization, DI for Pulmonary Embolism, Surgical Site Infection Providers Primary Care Provider: Bola Archuleta Admit Provider: Bola Archuleta Attending Provider: Bola Archuleta
== END 2023-09-30 14:34 | disposition home or self-care (01) | DRG 165 ==
LOC: ER 09:12 → 2ND 09:32
PROVIDERS: Internal Medicine; Nurse Practitioner Family; Admitting Provider Family Medicine; Emergency Provider Emergency Medicine; PCP Family Medicine; Visit Provider Family Medicine
PROC: 02CR3ZZ Extirpation of Matter from Left Pulmonary Artery, Percutaneous Approach (ICD-10-PCS; principal; 2023-09-29 13:15)
DX: I26.99 Other pulmonary embolism without acute cor pulmonale (principal); Z85.79 Personal history of other malignant neoplasms of lymphoid, hematopoietic and related tissues; Z86.718 Personal history of other venous thrombosis and embolism; I10 Essential (primary) hypertension; E78.5 Hyperlipidemia, unspecified; E11.9 Type 2 diabetes mellitus without complications; E78.2 Mixed hyperlipidemia; Z79.84 Long term (current) use of oral hypoglycemic drugs; I27.20 Pulmonary hypertension, unspecified; G89.29 Other chronic pain
CPT/HCPCS: 36415; 37184; 37185; 71275; 80048; 80053; 80061; 80076; 82962; 83880; 84484; 85025; 85610; 85730; 93005; 93306; 93451; 99152; 99153; 99285; C1757; C1769; C1894; J1644; J2405; Q9967

== ENCOUNTER 2023-10-20 07:39 | Outpatient (CLI) | payer OTHER, SELFPAY ==
--- NOTE | 2023-10-20 07:40 | CA_ITS ---
APPROVED REPORT EXAM: Comprehensive 2D, Doppler, and color-flow Echocardiogram [employer]ist: Sherry Eden CRT Ht: 5 ft 8 in Wt: 295lbs BSA: 2.41 BP: 132/86 mmHg Indications: Hyperlipidemia, Hypertension/HDD, PE saddle removed 09/29/23, TDE M-Mode Dimensions RVDd 2.47 cm (0.9-2.6) LA Diam 3.30 cm (1.9-4.0) LVDd 3.97 cm (3.5-5.7) LVDs 2.86 cm (3.5-5.7) IVSd 2.11 cm (0.6-1.1) PWd 0.64 cm (0.6-1.1) EF (Teich) 54.80% FS 28.00% EDV (Teich) 68.80 mL ESV (Teich) 31.10 mL LV Diastology E/A Ratio 0.56 MED A' 8.70 cm/s LAT A' 10.00 cm/s Aortic Valve AO Peak GR. 8.30 mmHg Mitral Valve MV A Velocity 70.0 (40-130 cm/s) E/A Ratio 0.56 Pulmonary Valve PV Peak Velocity 105.0 (50-150 cm/s) Tricuspid Valve TR P. Velocity 121.00 cm/s RAP Estimate 10.00 mmHg RVSP 15.90 mmHg Left Ventricle The left ventricle is normal size. The left ventricular systolic function is normal. The left ventricular ejection fraction is within the normal range. Proximal septal thickening is noted. There is normal LV segmental wall motion. The left ventricular diastolic function is normal. LVEF is 55%. Right Ventricle The right ventricle is mildly dilated. The right ventricular systolic function is normal. Atria The left atrium size is normal. The right atrium size is normal. The interatrial septum is not well-visualized. Aortic Valve The aortic valve is mildly thickened. There is no aortic valvular stenosis. Mild aortic regurgitation. Mitral Valve The mitral valve leaflets are mildly thickened. No evidence of mitral valve stenosis. Trace mitral regurgitation. Tricuspid Valve The tricuspid valve leaflets are thin and pliable. Trace tricuspid regurgitation. There is insufficient TR jet to estimate RVSP. Pulmonic Valve The pulmonic valve is not well-visualized. Great Vessels The aortic root is normal in size. The ascending aorta is borderline dilated, measuring 3.7 cm in diameter. The IVC is not well-visualized. Pericardium There is no pericardial effusion. Other Information Study Quality: Technically Difficult Conclusion Technically difficult study due to poor acoustic windows. Normal biventricular systolic function. Mild RV dilation. Mild AI. Ascending aorta is borderline dilated, measuring 3.7 cm in diameter. Electronically signed by : Kiara Hernandez MD 10/22/2023 11:53:52
--- NOTE | 2023-10-20 08:22 | US_ITS ---
FINAL REPORT CLINICAL HISTORY: CALCULUS OF GALLBLADDER WITHOUT CHOLECYSTITIS W/OUT OBSTRUCT COMPARISON: CTA 09/29/2023 FINDINGS: Sonographic images of the right upper quadrant were obtained in the longitudinal and transverse planes. PANCREAS: Unremarkable. LIVER: Fatty infiltrated. No focal hepatic lesion. No intrahepatic biliary ductal dilatation. GALLBLADDER: Multiple gallstones. No gallbladder wall thickening or pericholecystic fluid. COMMON DUCT: 5 mm. Normal for age. RIGHT KIDNEY: The right kidney measures 10.8 cm. There is no hydronephrosis, mass, or stone. FREE FLUID: None. IMPRESSION: Fatty liver. Gallstones. Reviewed, Interpreted and Dictated by Barb Beck MD Transcribed by Samantha Franco Authenticated and . [facility]
== END 2023-10-20 23:59 ==
LOC: RT 07:40
PROVIDERS: PCP Family Medicine; Visit Provider Family Medicine
DX: I26.92 Saddle embolus of pulmonary artery without acute cor pulmonale (principal); I51.7 Cardiomegaly
CPT/HCPCS: 76705; 93306

== ENCOUNTER 2023-10-28 14:31 | Outpatient (CLI) | payer OTHER, SELFPAY ==
[2023-10-28 16:12] LABS: Blood Urea Nitrogen 18 mg/dl (9-20); Estimated Glomerular Filt Rate 76 ml/min (>60); GFR (African American) 92 ML/MIN (>60)
== END 2023-10-28 23:59 ==
LOC: LAB 14:32
PROVIDERS: PCP Family Medicine; Visit Provider Internal Medicine
DX: E78.5 Hyperlipidemia, unspecified (principal)
CPT/HCPCS: 36415; 82565; 84520

== ENCOUNTER 2023-11-12 08:10 | Outpatient (CLI) | payer OTHER, SELFPAY ==
--- NOTE | 2023-11-12 08:10 | CT_ITS ---
FINAL REPORT CLINICAL HISTORY: ascending aorta dilation COMPARISON: 09/29/2023 FINDINGS: Thin section axial CT images of the chest were obtained with contrast. 3D reformatted images were also obtained. This study was performed with techniques to keep radiation doses as low as reasonably achievable (ALARA). Individualized dose reduction techniques using automated exposure control or adjustment of mA and/or kV according to the patient's size were employed. There has been marked interval improvement in the bilateral pulmonary emboli. Small emboli persist in the lower lobes. There is 3.9 cm ectasia of the ascending aorta. There is no evidence of dissection. There is no evidence of mediastinal or hilar mass or adenopathy. There is no evidence of pulmonary mass or nodule. There is mild bibasilar atelectasis. Limited images of the upper abdomen demonstrate fatty infiltration of the liver. There is a nearly completely stone filled gallbladder again noted with mild wall thickening. IMPRESSION: Marked interval improvement bilateral pulmonary emboli with persistent small emboli in the lower lobes. 3.9 cm ectasia of the ascending aorta without evidence of dissection. Fatty liver. Stone filled gallbladder. Reviewed, Interpreted and Dictated by Herrera Dover III, MD Transcribed by Samantha Franco Authenticated and [facility]
[2023-11-12] MEDS: 0.9 % SODIUM CHLORIDE 50 ML VIAL IV (08:39)
[2023-11-12] MEDS: SODIUM CHLORIDE 0.9% 10ML SYR (RAD ONLY) 10 ML IV (08:39)
[2023-11-12] MEDS: IOPAMIDOL-370 (76%);100ML BOTTLE 100 ML IV (08:40)
== END 2023-11-12 23:59 ==
LOC: RAD 08:10
PROVIDERS: PCP Family Medicine; Visit Provider Internal Medicine
DX: I77.810 Thoracic aortic ectasia (principal)
CPT/HCPCS: 71275; Q9967

== ENCOUNTER 2023-12-11 08:22 | Outpatient (POV) | payer OTHER, SELFPAY ==
[2023-12-11 08:38] VITALS: BP 144/87; PULSE 82; RESP 16; O2SAT 98; BMI 45.6
--- NOTE | 2023-12-11 09:02 | A.OFFVIS_ITS ---
[facility] Pain Management SOAP Note Subjective:: Patient is a pleasant 58-year-old male who presents today for 3-month follow-up and medication refill. Today he rates his pain a 5 out of 10. Patient does states since our last visit he was hospitalized due to blood clots in his lungs. Patient states that he had been on a blood thinner and his insurance decided to change him. He states that he was put temporarily on a baby aspirin in place of the blood thinners and that it was the end that these clots came about. He does state from his last medication refill his insurance did make him send it to the mail-in pharmacy and he stated that the pills were different color and did not seem to work as well. Patient does state that his pain is still very prominent on some days more than others. Patient does state he is scheduled for a follow- up appointment with his cancer doctor coming up. He is currently managed with tramadol 50 mg 3 times a day. He is prescribed and reviewed and is appropriate. Review of Systems: General: No recent weight changes, no fever, no sleep disturbances Respiratory: No cough, no shortness of air, no recurring pulmonary infections Cardiovascular/peripheral vascular: No chest pain, no palpitations, no edema, no shortness of breath Gastrointestinal: No new onset incontinence, normal bowel movements reported Genitourinary: No new onset incontinence Musculoskeletal: Low back pain Psychiatric: [Normal mood/affect] Neurological: [Denies weakness in extremities], [denies balance issues] Objective:: Physical Exam: General: Alert and oriented x3, no acute distress, pleasant and cooperative Lungs: Respirations even and unlabored, symmetrical chest expansion Eyes: PERRL Musculoskeletal: Flexion and extension of lumbar [spine] somewhat guarded secondary to pain, [antalgic gait noted] Neurological: Speech clear, no gross sensory deficit Assessment:: Chronic pain syndrome, low back pain, history of multiple myeloma Plan:: I will refill the patient's tramadol 50 mg 3 times a day and provide a 3-month supply of this medication. I have discussed with the patient that he may benefit from a intrathecal pain pump trial in the future. Risk and benefits and educational handouts were given at today's visit. Patient states he would like time to review this and go over with his cancer doctor. We will follow-up with this at future visits. I have counseled him that if between now and his next visit if he does wish to proceed forward with this plan of care that he can call our office and we will order the psychological evaluation. Patient was cou nseled that as long as he is deemed an appropriate candidate we can proceed forward with a trial at a later date. Patient acknowledges understanding. Patient will return to clinic in 3 months for reevaluation of symptoms and plan of care. Risks and benefits of the medication have been explained in detail to the patient. The patient does understand the risk of dependence on the medication when given over a prolonged period. Patient has been advised of risks of oversedation with the prescribed medication. Narcan has been offered to the paitent in the event of oversedation. Patient has been advised that a family member should also be educated regarding administration of Narcan. The patient has been advised to consult with his/her primary care provider and pharmacist regarding drug-drug interaction of medications currently prescribed. Patient has been prescribed a controlled substance after being counseled on the medication, medication safety, and possible side effects. Opioid contract was reviewed and signed by the patient, and that they have agreed to all of the terms set forth by our compliance program. Patient has been instructed to contact the clinic with any concerns before the next appointment. Dr. Armstrong has reviewed this note and agrees with this plan of care. This note was dictated using voice recognition software and make contain errors or omissions. [facility] Disclaimer: The information contained in this section may have been updated after the masood maynard was seen, as this information can be updated by other users. Medical History Cancer Chronic pain syndrome COVID-19 Diabetes DVT (deep venous thrombosis) History of DVT (deep vein thrombosis) History of multiple myeloma HLD (hyperlipidemia) HTN (hypertension) Hypertension Pneumonia due to COVID-19 virus Right ventricular dilation Surgical History H/O kyphoplasty Hx of tonsillectomy Family History Other Diabetes Heart attack Hyperlipidemia Hypertension Social History Smoking Status: Unknown if ever smoked alcohol intake: never current occupational status: other Travel in the last 8 weeks: None household members: spouse caffeine: Yes
== END 2023-12-11 23:59 | disposition home or self-care (01) ==
PROVIDERS: PCP Family Medicine; Visit Provider Nurse Practitioner Family
DX: G89.4 Chronic pain syndrome (principal); M54.50 Low back pain, unspecified; Z85.79 Personal history of other malignant neoplasms of lymphoid, hematopoietic and related tissues
CPT/HCPCS: 99212; G0463

== ENCOUNTER 2025-02-06 09:13 | Emergency (ER) | payer OTHER, SELFPAY ==
--- OUTSIDE RECORDS SUMMARY | 2024-04-09 05:15 | XMS_ITS ---
Author Organization [facility] Address [address] [facility] [address] [place] [id number] Care Team Providers Care Soft Sugar Cutter Name Role Phone Bola Archuleta Primary Care Provider [phone] Allergies No Known Allergies Results Component Value Reference Range Notes Glucose (In-House) Reviewed date:04/12/2024 10:22:11 AM Interpretation:176 Performing Lab: Notes/Report: 176 blood glucose 176 74 - 106 mg/dL Glycohemoglobin A1c (in hous e) Reviewed date:04/12/2024 10:22:11 AM Interpretation:9.9 Performing Lab: Notes/Report: 9.9 glycohemoglobin 9.9% 5 - 6.5 % P-Comprehensive Metabolic Pa nate (CMP) Reviewed date:04/12/2024 10:22:11 AM Interpretation:gluc 165 Performing Lab: Notes/Report: Test performed by [facility], [facility] [facility] , [address], [place] [address] Everette Gray MD, Night Worker CLIA: [id number] Sodium 139 135-145 mmol/L Potassium 4.1 3.5-5.3 mmol/L Chloride 105 97-108 mmol/L CO2 25 22-32 mmol/L Glucose 165 65-99 mg/dL BUN 17 8-23 mg/dL Creatinine 0.94 0.70-1.30 mg/dL Calcium 8.9 8.6-10.4 mg/dL eGFR by Creatinine 92 >59 mL/min/1.73m2 Protein 6.5 6.0-8.3 g/dL Albumin 3.8 3.5-5.3 g/dL Alkaline Phosphatase 48 40-129 IU/L ALT (SGPT) 30 <5-55 IU/L AST (SGOT) 25 <5-46 IU/L Bilirubin, Total 0.4 <0.2-1.2 mg/dL A/G Ratio 1.4 1.1-2.5 P-Vitamin D 25-Hydroxy Reviewed date:04/12/2024 10:22:11 AM Interpretation:23.4 Performing Lab: Notes/Report: Test performed by [facility] [address] [place] [address] , [address], [place] [address] Everette Gray MD, Night Worker CLIA: [id number] Vitamin D 25-Hydroxy 23.4 30.0-100.0 ng/mL Interpretation of Vitamin D 25 OH: < 20 ng/mL - Deficiency 20 - 29 ng/mL - Insufficiency 30 - 100 ng/mL - Sufficiency > 100 ng/mL - Super-therapeutic- toxicity may occur above this level. Clinical correlation required. REASON FOR VISIT 6 Month Check Up Medications Medication SIG (Take, Route, Frequency, Duration) Notes Start Date End Date Status Jentadueto 2.5-1000 MG 1 tab(s) orally 2 times a day for 90 days Not-Taking Tresiba FlexTouch 100 UNIT/ML 55 units subcutaneously once a day for 90 days Not-Takin g Furosemide 20 MG 1 tablet Orally Once a day as needed 04/09/2024 Active Farxiga 10 MG 1 tablet Orally Once a day for 90 days 04/09/2024 Active Xarelto 20 MG 1 tablet with food O rally Once a day for 90 days Active amLODIPine Besylate 5 MG TAKE 1 TABLET ONCE DAILY for 90 days Active Pravastatin Sodium 40 MG TAKE 1 TABLET ONCE DAILY for 90 days Active Klor-Con M20 20 MEQ TAKE 1 TABLET DAILY for 90 days Active Glimepiride 4 MG TAKE 2 TABLETS ONCE DAILY for 90 days Active Lisinopril-hydroCHLOROt hiazide 20-25 MG TAKE 1 TABLET ONCE DAILY for 90 days Active Vitamin D3 25 MCG (1000 UT) 2 cap(s) orally once a day Active Zinc 50 MG 1 tab(s) orally twic e daily Active BD Pen Needle Short U/F 31 GUAGE X 5/16 INCH 1 PEN NEEDLE ONCE A DAY 02/04/2019 Active traMADol HCl 50 MG 1-2 tab(s) orally ev yaniv 6 hours as needed 11/12/2018 Active Sildenafil Citrate 20 MG 1 to 5 tab(s) orally once a day as needed 10/11/2021 Active Revlimid 10 MG 1 cap(s) orally once a day Active Multivitamin - 1 tab(s) orally once a day Active Vitamin C 1000 MG 1 tablet Orally Once a day for 30 day(s) Active Vital Signs Weight 300 lbs 04/09/2024 Blood pressure systolic 130 mm Hg 04/09/20 24 Blood pressure diastolic 80 mm Hg 024 Heart Rate 90 /min 04/09/2024 Height 72 in 04/09/2024 BMI 40.68 kg/m2 04/09/2024 Encounters Encounter Location Date Provider Diagnosis [facility] [address] [facility] [address] [facility] [address] [place], [place] [id number] 04/09/2024 Bola Archuleta Type 2 diabetes nancy itus without complication E11.9 ; Essential hypertension I10 ; Mixed hyperlipidemia E78.2 ; Hypokalemia E87.6 and Vitamin D deficiency E55.9 Assessments Encounter Date Diagnosis (ICD Code) Assessment Notes Treatment Notes Treatment Clinical Notes Section Notes 04/09/2024 Type 2 diabetes mellitus without complication (ICD-10 - E11.9) 04/09/2024 Essential hypertension (ICD-10 - I10) 04/09/2024 Mixed hyperlipidemia (ICD-10 - E78.2) 04/09/2024 Hypokalemia (ICD-10 - E87.6) 04/09/2024 Vitamin D deficiency (ICD-10 - E55.9) Plan Of Treatment Medication Medication Name Sig Start Date Stop Date Notes Furosemide 20 MG 1 tablet Orally Once a day as needed 03/25 Farxiga 10 MG 1 tablet Orally Once a day for 90 days 04/09 Next Appt Details Follow Up: 6 Months, Reason: Provider Name:Bola cisse, 04/13/2025 09:15:00 AM, [address] [facility] [address], [place], [id number], Progress Notes * JULISSA DOLAN:[birth year] (59 yo M)Acc No.[id number]:04/09/2024 Progress Notes Patient: H OPPER, JULISSA River Provider: Mahendra Archuleta M.D. :1965 A ge:59 Y S ex:Male Date:04/09/2024 Address:[address] [place] [address] [place] [id number] Subjective: * Chief Complaints: * 1 . 6 Month Check Up. * HPI: C ardiology: 59 year old male presents with c/o Blood Pressure Elevated P t here for 6 mo f/u on hypertension, states he is doing well and does not have any concerns. c/o Hyperlipidemia P t is fasting today. E ndocrinology: c/o Recent Blood Sugars P t here to f/u on DM 2. * ROS: D ERMATOLOGY: no R romeo. n o H jhoana. G ASTROENTEROLOGY: no N ausea. n o V omiting. U ROLOGY: no D ifficulty urinating. n o B lood in urine. * Medical History: T ype 2 Diabetes, Hypertension, Hyperlipidemia, Vitamin D Deficiency, Erectile Dysfunction, Declines colon cancer screening 2017, Multiple Myeloma, Dx: November,, s/p chemotherapy, radiation and autologous stem cell transplant, Compression fracture, multiple, s/p kyphoplasty x 3, DVT, right leg, 2019, COVID 19 10/16/2020. * Surgical History: T onsillectomy , Kyphoplasty x 3 2019, RT Heart Cath, PE 09/29/2023. * Hospitalization/Major Diagno stic Procedure: M [facility] cellulitis of face 2008, Cough, Wheezing, [facility]- [facility] ER 01/2019, Cancer Center for 14 days- [facility] 05/2019, Pulmonary Embolism- [facility] 09/29-01/2024. * Family History: F ather: . M other: , diabetes CHF. P aternal Grand Father: .?Paternal Grand Mother: . M aternal Grand Father: . M aternal Grand Mother: . S iblings: Drowned. 1 brother(s) . . * Social History: C URRENT TOBACCO USE S moking Status: Patient does NOT smoke, Former Smoker: No, Second hand smoke exposure: Yes, number of years exposed to second hand smoke: 8. C affeine: no. Exercise: no. Home smoke detector use: yes. Marital Status: . New since last visit: none. Occupation: yes. Past smoking status: no. Occup. exposure: none. Recreational drug use: no. Alcohol: no. Sexually active: yes. Travel ouside [place]: no. * Medications: T aking Vitamin C 1000 MG Tablet 1 tablet Orally Once a day , Taking Multivitamin - Tablet 1 tab(s) orally once a day , Taking Revlimid 10 MG Capsule 1 cap(s) orally once a day , Taking BD Pen Needle Short U/F 31 GUAGE X 5/16 INCH 1 PEN NEEDLE ONCE A DAY , Taking Zinc 50 MG Tablet 1 tab(s) orally twice daily , Taking Vitamin D3 25 MCG (1000 UT) Capsule 2 cap(s) orally once a day , Taking Sildenafil Citrate 20 MG Tablet 1 to 5 tab(s) orally once a day as needed , Taking traMADol HCl 50 MG Tablet 1-2 tab(s) orally every 6 hours as needed , Taking Pravastatin Sodium 40 MG Tablet TAKE 1 TABLET ONCE DAILY , Taking amLODIPine Besylate 5 MG Tablet TAKE 1 TABLET ONCE DAILY , Taking Lisinopril-hydroCHLOROthiazide 20-25 MG Tablet TAKE 1 TABLET ONCE DAILY , Taking Glimepiride 4 MG Tablet TAKE 2 TABLETS ONCE DAILY , Taking Klor-Con M20 20 MEQ Tablet Extended Release TAKE 1 TABLET DAILY , Taking Xarelto 20 MG Tablet 1 tablet with food Orally Once a day , Not-Taking Tresiba FlexTouch 100 UNIT/ML Solution Pen-injector 55 units subcutaneously once a day , Not-Taking Jentadueto 2.5-1000 MG Tablet 1 tab(s) orally 2 times a day , Medication List reviewed and reconciled with the patient * Allergies: N .K.D.A. Objective: * Vitals: W t:300, Temp:98.0, BP:130/80, HR:90, Nurse:rebecca, Ht: 72, BMI:40.68. * Examination: G eneral Examination: General Appearance: N AD. Heart: R SR. Lungs: c lear to auscultation. Abdomen: bowel sounds present, soft and nontender. Extremities: no leg edema. Assessment: * Assessment: 1. T ype 2 diabetes mellitus without complication - E11.9 (Primary) 2 . E ssential hypertension - I10 3 . M ixed hyperlipidemia - E78.2 4 .?Hypokalemia - E87.6 5 . V itamin D deficiency - E55.9 Plan: * Treatment: Value Reference Range A /G Ratio 1.4 1.1-2.5 - * A lbumin 3.8 3.5-5.3 - g/dL * A lkaline Phosphatase 48 40-129 - IU/L * A LT (SGPT) 30 <5-55 - IU/L * A ST (SGOT) 25 <5-46 - IU/L * B ilirubin, Total 0.4 <0.2-1.2 - mg/dL * B UN 17 8-23 - mg/dL * C alcium 8.9 8.6-10.4 - mg/dL * C hloride 105 97-108 - mmol/L * C O2 25 22-32 - mmol/L * C reatinine 0.94 0.70-1.30 - mg/dL * G lucose 165 H 65-99 - mg/dL * P otassium 4.1 3.5-5.3 - mmol/L * S odium 139 135-145 - mmol/L * P rotein 6.5 6.0-8.3 - g/dL * e GFR by Creatinine 92 >59 - mL/min/1.73m2 * Josselyn Cortez 04/12/2024 10:22 :05 AM >See phone encounter ?LAB: Glucose (In-House) (Collection Date & Time - 04/09/2024)?176* Value Reference Range b lood glucose 176 74 - 106 mg/dL * Rachel Ashby 04/09/2024 9:49:58 AM > Josselyn Cortez 04/12/2024 10:22:05 AM >See phone encounter ?LAB: Glycohemoglobin A1c (in house) (Collection Date & Time - 04/09/2024)? 9.9* Value Reference Range g lycohemoglobin 9.9% 5 - 6.5 % * Rachel Ashby 04/09/2024 9:50:15 AM > Josselyn Cortez 04/12/2024 10:22:05 AM >See phone encounter 2.?Essential hypertension? Start Furosemide Tablet, 20 MG, 1 tablet, Orally, Once a day as needed, 30, Refills 1.?LAB: P-Comprehensive Metabolic Panel (CMP) (Collection Date & Time - 04/09/2024 10:02 AM)?gluc 165* Value Reference Range A /G Ratio 1.4 1.1-2.5 - * A lbumin 3.8 3.5-5.3 - g/dL * A lkaline Phosphatase 48 40-129 - IU/L * A LT (SGPT) 30 <5-55 - IU/L * A ST (SGOT) 25 <5-46 - IU/L * B ilirubin, Total 0.4 <0.2-1.2 - mg/dL * B UN 17 8-23 - mg/dL * C alcium 8.9 8.6-10.4 - mg/dL * C hloride 105 97-108 - mmol/L * C O2 25 22-32 - mmol/L * C reatinine 0.94 0.70-1.30 - mg/dL * G lucose 165 H 65-99 - mg/dL * P otassium 4.1 3.5-5.3 - mmol/L * S odium 139 135-145 - mmol/L * P rotein 6.5 6.0-8.3 - g/dL * e GFR by Creatinine 92 >59 - mL/min/1.73m2 * Josselyn Cortez 04/12/2024 10:22 :05 AM >See phone encounter 3.?Mixed hyperlipidemia?LAB: P-Comprehensive Metabolic Panel (CMP) (Collection Date & Time - 04/09/2024 10:02 AM)?gluc 165* Value Reference Range A /G Ratio 1.4 1.1-2.5 - * A lbumin 3.8 3.5-5.3 - g/dL * A lkaline Phosphatase 48 40-129 - IU/L * A LT (SGPT) 30 <5-55 - IU/L * A ST (SGOT) 25 <5-46 - IU/L * B ilirubin, Total 0.4 <0.2-1.2 - mg/dL * B UN 17 8-23 - mg/dL * C alcium 8.9 8.6-10.4 - mg/dL * C hloride 105 97-108 - mmol/L * C O2 25 22-32 - mmol/L * C reatinine 0.94 0.70-1.30 - mg/dL * G lucose 165 H 65-99 - mg/dL * P otassium 4.1 3.5-5.3 - mmol/L * S odium 139 135-145 - mmol/L * P rotein 6.5 6.0-8.3 - g/dL * e GFR by Creatinine 92 >59 - mL/min/1.73m2 * Josselyn Cortez 04/12/2024 10:22 :05 AM >See phone encounter 4.?Hypokalemia?LAB: P-Comprehensive Metabolic Panel (CMP) (Collection Date & Time - 04/09/2024 10:02 AM)?gluc 165* Value Reference Range A /G Ratio 1.4 1.1-2.5 - * A lbumin 3.8 3.5-5.3 - g/dL * A lkaline Phosphatase 48 40-129 - IU/L * A LT (SGPT) 30 <5-55 - IU/L * A ST (SGOT) 25 <5-46 - IU/L * B ilirubin, Total 0.4 <0.2-1.2 - mg/dL * B UN 17 8-23 - mg/dL * C alcium 8.9 8.6-10.4 - mg/dL * C hloride 105 97-108 - mmol/L * C O2 25 22-32 - mmol/L * C reatinine 0.94 0.70-1.30 - mg/dL * G lucose 165 H 65-99 - mg/dL * P otassium 4.1 3.5-5.3 - mmol/L * S odium 139 135-145 - mmol/L * P rotein 6.5 6.0-8.3 - g/dL * e GFR by Creatinine 92 >59 - mL/min/1.73m2 * Josselyn Cortez 04/12/2024 10:22 :05 AM >See phone encounter 5.?Vitamin D deficiency?LAB: P-Vitamin D 25-Hydroxy (Collection Date & Time - 04/09/2024 10:02 AM)? 23.4* Value Reference Range V itamin D 25-Hydroxy 23.4 L 30.0-100.0 - ng/mL * Josselyn Cortez 04/12/2024 10:22 :05 AM >See phone encounter * Procedure Codes: 8 2950 GLUCOSE TEST, 93696 GLYCATED HEMOGLOBIN TEST, Modifiers: QW , 57136 VENIPUNCT, ROUTINE*, 77375 SPECIMEN HANDLING * Follow Up: 6 Months * Billing Information: * Visit Code: 30902 Office Visit, Est Pt., Level 4. * Procedure Codes: 40614 GLUCOSE TEST. 77850 GLYCATED HEMOGLOBIN TEST. Modifiers: QW 01433 VENIPUNCT, ROUTINE*. 86234 SPECIMEN HANDLING. * Electronic signature of Graciela Archuleta MD on 02/06/2025 at 09:27 AM EDT Sign off status: Pending * Provider: Mahendra Archuleta M.D. Date: 0 04/09/2024 Generated for Valeria steele/Adilia/eTransmitting on: 0 02/06/2025 09:27 AM EDT History and Physical Notes * HPI (History of Present Illness) Category Sub-Category Detail Notes Category Not es Endocrinology Recent Blood Sugars Pt here to f/u on DM 2 Cardiology Blood Pressure Elevated Pt here for 6 mo f/u on hypertension, states he is doing well and does not have any concerns Hyperlipidemia Pt is fasting today Examination Category Sub-Category Detail Notes Category Not es General Examination Heart: RSR Lungs: clear to auscultatio n Abdomen: bowel sounds present , soft and nontender Extremities: no leg edema General Appearance: NAD
--- OUTSIDE RECORDS SUMMARY | 2024-10-08 05:15 | XMS_ITS ---
Author Organization [facility] Address [address] [facility] [address] [place], [place] [id number] Care Team Providers Care Shift Commander Name Role Phone Bola Archuleta Primary Care Provider Allergies No Known Allergies Results Component Value Reference Range Notes Glucose (In-House) Reviewed date:10/11/2024 05:38:36 PM Interpretation:167 Performing Lab: Notes/Report: 167 blood glucose 167 74 - 106 mg/dL CBC Venipuncture (in house) Reviewed date:10/08/2024 12:50:09 PM Interpretation: Performing Lab: Notes/Report: wbc 4.9 3.5 - 10 lymph 20.3% 15 - 50 mid 5.6% 2 - 15 gran 74.1% 35 - 80 rbc 5.28 3.5 - 5.5 hgb 15.4 11.5 - 16.5 hct 45.1 35 - 55 mcv 85.3 75 - 100 mch 29.1 25 - 35 mchc 34.1 31 - 38 platlet 163 100 - 400 Glycohemoglobin A1c (in hous e) Reviewed date:10/11/2024 05:38:36 PM Interpretation:9.2 Performing Lab: Notes/Report: 9.2 glycohemoglobin 9.2% 5 - 6.5 % P-Comprehensive Metabolic Pa nate (CMP) Reviewed date:10/11/2024 05:38:36 PM Interpretation:gluc 155 Performing Lab: Notes/Report: Test performed by [facility] , [address], [place] [address] Everette Gray MD, Pleat Patternmaker CLIA: [id number] Sodium 142 135-145 mmol/L Potassium 3.6 3.5-5.3 mmol/L Chloride 106 97-108 mmol/L CO2 22 22-32 mmol/L Glucose 155 65-99 mg/dL BUN 17 8-23 mg/dL Creatinine 0.93 0.70-1.30 mg/dL Calcium 8.8 8.6-10.4 mg/dL eGFR by Creatinine 93 >59 mL/min/1.73m2 Protein 7.3 6.0-8.3 g/dL Albumin 4.1 3.5-5.3 g/dL Alkaline Phosphatase 57 40-129 IU/L ALT (SGPT) 22 <5-55 IU/L AST (SGOT) 19 <5-46 IU/L Bilirubin, Total 0.6 <0.2-1.2 mg/dL A/G Ratio 1.3 1.1-2.5 P-Lipid Panel Reviewed date:10/11/2024 05:38:36 PM Interpretation: Normal Performing Lab: Notes/Report: Test performed by [facility], [address] , [place] [address] Everette Gray MD, Pleat Patternmaker CLIA: [id number] Cholesterol 118 <200 mg/dL Triglycerides 103 <150 mg/dL HDL Cholesterol 41 >39 mg/dL Cholesterol / HDL Ratio 2.88 0.00-4.99 Ratio Non-HDL Cholesterol 77 <130 mg/dL LDL Cholesterol (Calculation) 56 <130 mg/dL LDL Cholesterol Levels* Less than 100 mg/dL Optimal 100 to 129 mg/dL Near Optimal/ Above Optimal 130 to 159 mg/dL Borderline High 160 to 189 mg/dL High 190 mg/dL and above Very High * Categories as recommended by the 2004 ATPIII guidelines LDL/HDL Ratio 1.4 <3.3 Ratio LDL Cholesterol Patient History Test Date: 10/10/2023 LDL Results: 52 Units: mg/dL % Change: - Test Date: 10/08/2024 LDL Results: 56 Units: mg/dL % Change: +7% P-PSA Reviewed date:10/11/2024 05:38:36 PM Interpretation: Normal Performing Lab: Notes/Report: Test performed by [facility] [address], [place] [address] Everette Gray MD, Pleat Patternmaker CLIA: [id number] PSA 0.77 <4.00 ng/mL Please note this is an ultrasensitive PSA assay with a lower limit of detection of 0.014 ng/mL. This test is performed by the Angelo ECLIA methodology. Values obtained with different assay methods or kits cannot be directly compared. P-TSH reflex to FT4 Reviewed date:10/11/2024 05:38:36 PM Interpretation: Normal Performing Lab: Notes/Report: Test performed by [facility] [address], [place] [address] Everette Gray MD, Pleat Patternmaker CLIA: [id number] TSH reflex to FT4 1.11 0.43-5.25 mU/L P-Microalbumin/Creatinine, R andom Urine Sample Reviewed date:10/11/2024 05:38:36 PM Interpretation: Normal Performing Lab: Notes/Report: Test performed by [facility] [address] [place] [address] , [address], [place] [address] Everette Gray MD, Pleat Patternmaker CLIA: [id number] Albumin/Creatinine Ratio, Urine 16 0-30 ug/m g Microalbumin, Urine, Random 2.5 Creatinine, Urine 159.2 P-Vitamin D 25-Hydroxy Reviewed date:10/11/2024 05:38:36 PM Interpretation:25.1 Performing Lab: Notes/Report: Test performed by [facility] [address] [place] [address] , [address], [place] [address] Everette Gray MD, Pleat Patternmaker CLIA: [id number] Vitamin D 25-Hydroxy 25.1 30.0-100.0 ng/mL Interpretation of Vitamin D 25 OH: < 20 ng/mL - Deficiency 20 - 29 ng/mL - Insufficiency 30 - 100 ng/mL - Sufficiency > 100 ng/mL - Super-therapeutic- toxicity may occur above this level. Clinical correlation required. REASON FOR VISIT 6 months Medications Medication SIG (Take, Route, Frequency, Duration) Notes Start Date End Date Status Sildenafil Citrate 20 MG 1 to 5 tab(s) o rally once a day as needed 10/11/2021 Active traMADol HCl 50 MG 1-2 tab(s) orally ev yaniv 6 hours as needed 11/12/2018 Active Pravastatin Sodium 40 MG TAKE 1 TABLET O NCE DAILY for 15 day(s) Active Furosemide 20 MG 1 tablet Orally Once a day as needed 04/09/2024 Active Xarelto 20 MG 1 tablet with food O rally Once a day for 15 day(s) Active Vitamin C 1000 MG 1 tablet Orally Once a day for 30 day(s) Active BD Pen Needle Short U/F 31 GUAGE X 5/16 INCH 1 PEN NEEDLE ONCE A DAY 02/04/2019 Active Zinc 50 MG 1 tab(s) orally twice daily Active Multivitamin - 1 tab(s) orally once a day Active Revlimid 10 MG 1 cap(s) orally once a day Active Jentadueto 2.5-1000 MG 1 tab(s) orally 2 times a day Active Lisinopril-hydroCHLOROthi azide 20-25 MG TAKE 1 TABLET DAILY Active Tresiba FlexTouch 100 UNIT/ML 55 units subcutaneously once a day Active amLODIPine Besylate 5 MG TAKE 1 TABLET DAILY Active Vitamin D3 25 MCG (1000 UT) 2 cap(s) orally once a day A ctive Farxiga 10 MG TAKE 1 TABLET ONCE DAILY Active Klor-Con M20 20 MEQ TAKE 1 TABLET DAILY for 90 Active Glimepiride 4 MG TAKE 2 TABLETS ONCE DAILY Active Vital Signs Weight 281 lbs 10/08/2024 Blood pressure systolic 130 mm Hg 10/08/19 25 Blood pressure diastolic 80 mm Hg 025 Heart Rate 81 /min 10/08/2024 Height 72 in 10/08/2024 BMI 38.11 kg/m2 10/08/2024 Encounters Encounter Location Date Provider Diagnosis [facility] [address] [place], [place] [id number] 10/08/2024 Bola Archuleta Type 2 diabetes nancy itus without complication E11.9 ; Mixed hyperlipidemia E78.2 ; Essential hypertension I10 ; Vitamin D deficiency E55.9 ; Prostate cancer screening Z12.5 and Plasmacytoma, 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 Assessments Encounter Date Diagnosis (ICD Code) Assessment Notes Treatment Notes Treatment Clinical Notes Section Notes 10/08/2024 Type 2 diabetes mellitus without complication (ICD-10 - E11.9) 10/08/2024 Mixed hyperlipidemia (ICD-10 - E78.2) 10/08/2024 Essential hypertension (ICD-10 - I10) 10/08/2024 Vitamin D deficiency (ICD-10 - E55.9) 10/08/2024 Prostate cancer screening (ICD-10 - Z12.5) 10/08/2024 Plasmacytoma, 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) Plan Of Treatment Medication Medication Name Sig Start Date Stop Date Notes Jentadueto 2.5-1000 MG 1 tab(s) orally 2 times a day Lisinopril-hydroCHLOROthiazi de 20-25 MG TAKE 1 TABLET DAILY Tresiba FlexTouch 100 UNIT/ML 55 units subcutaneously once a day amLODIPine Besylate 5 MG TAKE 1 TABLET DAILY Vitamin D3 25 MCG (1000 UT) 2 cap(s) orally once a day Farxiga 10 MG TAKE 1 TABLET ONCE DAILY Glimepiride 4 MG TAKE 2 TABLETS ONCE DAILY Next Appt Details Follow Up: 6 Months, Reason: Provider Name:Bola Arroyo ry, 04/13/2025 09:15:00 AM, [address], [address], [place], [place], [id number], Progress Notes * JULISSA DOLANDOB:[birth year] (59 yo M)Acc No.[id number]:10/08/2024 Progress Notes Patient: JULISSA GORDON Provider: Mahendra Archuleta M.D. :1965 A ge:59 Y S ex:Male Date:10/08/2024 Address:[address] [place] [address] IN [facility], [id number] Subjective: * Chief Complaints: * 1 . 6 months. * HPI: C ardiology: 59 year old male presents with c/o Blood Pressure Elevated P t here for 6 mo f/u on hypertension, states he is doing well and does not have any concerns . c/o Hyperlipidemia P t is fasting today. [...] cellulitis of face 2008, Cough, Wheezing, SOA- [facility] 01/2019, Cancer Center for 14 days- [place] 05/2019, Pulmonary Embolism- [facility] 09/29-01/2024. * Family History: F ather: [...] every 6 hours as needed , Taking Furosemide 20 MG Tablet 1 tablet Orally Once a day as needed , Taking Jentadueto 2.5-1000 MG Tablet 1 tab(s) orally 2 times a day , Taking Tresiba FlexTouch 100 UNIT/ML Solution Pen-injector 55 units subcutaneously once a day , Taking Pravastatin Sodium 40 MG Tablet TAKE 1 TABLET ONCE DAILY , Taking Xarelto 20 MG Tablet 1 tablet with food Orally Once a day , Taking Farxiga 10 MG Tablet TAKE 1 TABLET ONCE DAILY , Taking Lisinopril- hydroCHLOROthiazide 20-25 MG Tablet TAKE 1 TABLET DAILY , Taking Glimepiride 4 MG Tablet TAKE 2 TABLETS ONCE DAILY , Taking amLODIPine Besylate 5 MG Tablet TAKE 1 TABLET DAILY , Taking Klor-Con M20 20 MEQ Tablet Extended Release TAKE 1 TABLET DAILY , Medication List reviewed and reconciled with the patient * Allergies: N .K.D.A. Objective: * Vitals: W t:281, Temp:97.9, BP:130/80, HR:81, Nurse:rebecca, Ht: 72, BMI:38.11. * Examination: G eneral Examination: General Appearance: N AD. Heart: R SR. Lungs: c lear to auscultation. Peripheral pulses: n ormal (2+) bilaterally. Extremities: no leg edema. Assessment: * Assessment: 1. T ype 2 diabetes mellitus without complication - E11.9 (Primary) 2 . M ixed hyperlipidemia - E78.2 3 . E ssential hypertension - I10 4 .?Vitamin D deficiency - E55.9 5 . P rostate cancer screening - Z12.5 & #160; 6 . 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 Plan: * Treatment: Value Reference Range A /G Ratio 1.3 1.1-2.5 - * A lbumin 4.1 3.5-5.3 - g/dL * A lkaline Phosphatase 57 40-129 - IU/L * A LT (SGPT) 22 <5-55 - IU/L * A ST (SGOT) 19 <5-46 - IU/L * B ilirubin, Total 0.6 <0.2-1.2 - mg/dL * B UN 17 8-23 - mg/dL * C alcium 8.8 8.6-10.4 - mg/dL * C hloride 106 97-108 - mmol/L * C O2 22 22-32 - mmol/L * C reatinine 0.93 0.70-1.30 - mg/dL * G lucose 155 H 65-99 - mg/dL * P otassium 3.6 3.5-5.3 - mmol/L * S odium 142 135-145 - mmol/L * P rotein 7.3 6.0-8.3 - g/dL * e GFR by Creatinine 93 >59 - mL/min/1.73m2 * Josselyn Coretz 10/11/2024 5:38: 30 PM >See phone encounter ?LAB: P-TSH reflex to FT4 (Collection Date & Time - 10/08/2024 08:44 AM)? Normal* Value Reference Range T SH reflex to FT4 1.11 0.43-5.25 - mU/L * Josselyn Cortez 10/11/2024 5:38: 30 PM >See phone encounter ?LAB: P-Microalbumin/Creatinine, Random Urine Sample (Collection Date & Time - 10/08/2024 08:44 AM)?Normal* Value Reference Range A lbumin/Creatinine Ratio, Urine 16 0-30 - ug /mg * C reatinine, Urine 159.2 - mg/dL * M icroalbumin, Urine, Random 2.5 - mg/dL * Josselyn Cortez 10/11/2024 5:38: 30 PM >See phone encounter ?LAB: Glucose (In-House) (Collection Date & Time - 10/08/2024)?167* Value Reference Range b lood glucose 167 74 - 106 mg/dL * Rachel Ashby 10/08/2024 10:17:0 1 AM > Josselyn Cortez 10/11/2024 5:38:30 PM >See phone encounter ?LAB: Glycohemoglobin A1c (in house) (Collection Date & Time - 10/08/2024)? 9.2* Value Reference Range g lycohemoglobin 9.2% 5 - 6.5 % * Rachel Ashby 10/08/2024 10:17:2 6 AM > Josselyn Cortez 10/11/2024 5:38:30 PM >See phone encounter 2.?Mixed hyperlipidemia?LAB: P-Comprehensive Metabolic Panel (CMP) (Collection Date & Time - 10/08/2024 08:44 AM)?gluc 155* Value Reference Range A /G Ratio 1.3 1.1-2.5 - * A lbumin 4.1 3.5-5.3 - g/dL * A lkaline Phosphatase 57 40-129 - IU/L * A LT (SGPT) 22 <5-55 - IU/L * A ST (SGOT) 19 <5-46 - IU/L * B ilirubin, Total 0.6 <0.2-1.2 - mg/dL * B UN 17 8-23 - mg/dL * C alcium 8.8 8.6-10.4 - mg/dL * C hloride 106 97-108 - mmol/L * C O2 22 22-32 - mmol/L * C reatinine 0.93 0.70-1.30 - mg/dL * G lucose 155 H 65-99 - mg/dL * P otassium 3.6 3.5-5.3 - mmol/L * S odium 142 135-145 - mmol/L * P rotein 7.3 6.0-8.3 - g/dL * e GFR by Creatinine 93 >59 - mL/min/1.73m2 * DanaJosselyn 10/11/2024 5:38: 30 PM >See phone encounter ?LAB: P-Lipid Panel (Collection Date & Time - 10/08/2024 08:44 AM)?Normal* Value Reference Range C holesterol / HDL Ratio 2.88 0.00-4.99 - Ratio * C holesterol 118 <200 - mg/dL * H DL Cholesterol 41 >39 - mg/dL * L DL Cholesterol (Calculation) 56 <130 - mg/d L * L DL/HDL Ratio 1.4 <3.3 - Ratio * N on-HDL Cholesterol 77 <130 - mg/dL * T riglycerides 103 <150 - mg/dL * DanaJosselyn 10/11/2024 5:38: 30 PM >See phone encounter 3.?Essential hypertension? Continue Lisinopril-hydroCHLOROthiazide Tablet, 20-25 MG, TAKE 1 TABLET DAILY;?Continue amLODIPine Besylate Tablet, 5 MG, TAKE 1 TABLET DAILY.?LAB: P-Comprehensive Metabolic Panel (CMP) (Collection Date & Time - 10/08/2024 08:44 AM)?gluc 155* Value Reference Range A /G Ratio 1.3 1.1-2.5 - * A lbumin 4.1 3.5-5.3 - g/dL * A lkaline Phosphatase 57 40-129 - IU/L * A LT (SGPT) 22 <5-55 - IU/L * A ST (SGOT) 19 <5-46 - IU/L * B ilirubin, Total 0.6 <0.2-1.2 - mg/dL * B UN 17 8-23 - mg/dL * C alcium 8.8 8.6-10.4 - mg/dL * C hloride 106 97-108 - mmol/L * C O2 22 22-32 - mmol/L * C reatinine 0.93 0.70-1.30 - mg/dL * G lucose 155 H 65-99 - mg/dL * P otassium 3.6 3.5-5.3 - mmol/L * S odium 142 135-145 - mmol/L * P rotein 7.3 6.0-8.3 - g/dL * e GFR by Creatinine 93 >59 - mL/min/1.73m2 * Josselyn Cortez 10/11/2024 5:38: 30 PM >See phone encounter 4.?Vitamin D deficiency? Continue Vitamin D3 Capsule, 25 MCG (1000 UT), 2 cap(s), orally, once a day.?LAB: P-Vitamin D 25-Hydroxy (Collection Date & Time - 10/08/2024 08:44 AM)? 25.1* Value Reference Range V itamin D 25-Hydroxy 25.1 L 30.0-100.0 - ng/mL * Josselyn Cortez 10/11/2024 5:38: 30 PM >See phone encounter 5.?Prostate cancer screening?LAB: P-PSA (Collection Date & Time - 10/08/2024 08:44 AM)?Normal* Value Reference Range P SA 0.77 <4.00 - ng/mL * Josselyn Cortez 10/11/2024 5:38: 30 PM >See phone encounter 6.?Plasmacytoma, extramedullary?LAB: CBC Venipuncture (in house) (Collection Date & Time - 10/08/2024)* Value Reference Range w bc 4.9 3.5 - 10 * l ymph 20.3% 15 - 50 * m id 5.6% 2 - 15 * g ran 74.1% 35 - 80 * r bc 5.28 3.5 - 5.5 * h gb 15.4 11.5 - 16.5 * h ct 45.1 35 - 55 * m cv 85.3 75 - 100 * m ch 29.1 25 - 35 * m chc 34.1 31 - 38 * p latlet 163 100 - 400 * Rachel Ashby 10/08/2024 10:18:4 2 AM > * Procedure Codes: 8 2950 GLUCOSE TEST, 26980 GLYCATED HEMOGLOBIN TEST, Modifiers: QW , 49572 CBC WITH AUTO DIFF, 3046F HEMOGLOBIN A1C LEVEL > 9.0%, 3075F SYST BP GE 130 - 139MM HG, 3079F DIAST BP 80-89 MM HG * Follow Up: 6 Months * Billing Information: * Visit Code: 98932 Office Visit, Est Pt., Level 4. * Procedure Codes: 75425 GLUCOSE TEST. 19957 GLYCATED HEMOGLOBIN TEST. Modifiers: QW 22585 CBC WITH AUTO DIFF. 3046F HEMOGLOBIN A1C LEVEL > 9.0%. 3075F SYST BP GE 130 - 139MM HG. 3079F DIAST BP 80-89 MM HG. * Electronic signature of Graciela Archuleta MD on 02/06/2025 at 09:26 AM EDT Sign off status: Pending * Provider: Mahendra Archuleta M.D. Date: 0 10/08/2024 Generated for Valeria steele/Adilia/eTransmitting on: 0 02/06/2025 09:26 AM EDT History and Physical Notes * [...] Heart: RSR Lungs: clear to auscultatio n Extremities: no leg edema General Appearance: NAD Peripheral pulses: normal (2+) bilatera lly
--- OUTSIDE RECORDS SUMMARY | 2025-01-31 09:00 | XMS_ITS | Encounter Summary ---
Author Organization [facility] Address [address] [place] [address] Care Team Providers Care Skilled Labor Name Role Phone Bola Archuleta MD Primary Care Provider + [phone] Reason for Visit * Reason Comments Labs Encounter Details Date Type Department Care Team (Late Contact Info) Description 01/31/2025 9:00 AM EDT Clinical Support [facility] Hematology/BMT and Cellular Therapy Program [address] [place] [address] [place] [phone] Social History Tobacco Use Types Packs/Day Years Used Date Smoking Tobacco: Never Smokeless Tobacco: Never Alcohol Use Standard Drinks/Week Comments Not Currently 0 (1 standard drink = 0.6 oz pur e alcohol) PHQ-2 Answer Date Recorded Patient Health Questionnaire-2 Score 0 04/23/2024 Sex and Gender Information Value Date Recorded Sex Assigned at Not on file Legal Sex Male 6:55 PM EDT Gender Identity Not on file Sexual Orientation Not on file documented as of this encounter Plan of Treatment Upcoming Encounters Date Type Department Care Team (Late Contact Info) Description 05/06/2025 11:00 AM EDT Clinical Support [facility] [address] [place] [phone] 05/06/2025 11:30 AM EDT Office Visit [facility] Cellular Therapy [facility] [address] [place] [phone] Yolande Mccullough, DULSER [address] [facility] [address] [place] [address] documented as of this encounter Visit Diagnoses Not on filedocumented in this encounter Additional Health Concerns Assessment Noted Time A fall risk assessment has been complete d for the patient 01/31/2025 11:18 AM EDT A Body Mass Index follow-up plan has been documented for the patient 01/31/2025 12:52 PM EDT documented as of this encounter Care Teams Skilled Labor Relationship Specialty Start Date End Date Bola Archuleta MD [facility] [address] [address] PCP - General 01/05/21 documented as of this encounter
--- OUTSIDE RECORDS SUMMARY | 2025-01-31 09:30 | XMS_ITS | Encounter Summary ---
Author Organization [facility] Address [address] [place] [address] Care Team Providers Care Coach Tour Driver Name Role Phone Bola Archuleta MD Primary Care Provider + [phone] Reason for Visit * Reason Comments Multiple Myeloma Encounter Details Date Type Department Care Team ([facility] Contact Info) Description 01/31/2025 9:30 AM EDT Office Visit [facility] Hematology/BMT and Cellular Therapy Program [address] [phone] Yolande Mccullough, TRIAL JUSTICE 800 [facility] [address] [place] [phone] Multiple myeloma in remission (CMS/HCC) (Primary Dx); Long-term current use of immunomodulator; Hx of autologous stem cell transplant (CMS/HCC); intermodal customer service (current) use of bisphosphonates; Lytic bone lesions on xray Social History Tobacco Use Types Packs/Day Years Used Date Smoking Tobacco: Never Smokeless Tobacco: Never Tobacco Cessation:Counseling Given: Not Answered Alcohol Use Standard Drinks/Week Comments Not Currently 0 (1 standard drink = 0.6 oz pur e alcohol) PHQ-2 Answer Date Recorded Patient Health Questionnaire-2 Score 0 04/23/2024 Sex and Gender Information Value Date Recorded Sex Assigned at Not on file Legal Sex Male 6:55 PM EDT Gender Identity Not on file Sexual Orientation Not on file documented as of this encounter Last Filed Vital Signs Vital Sign Reading Time Taken Comments Blood Pressure 116/76 01/31/2025 9:41 AM EDT Pulse 89 01/31/2025 9:41 AM EDT Temperature 36.6 C (97.8 F) 01/31/2025 9:41 AM EDT Respiratory Rate 16 01/31/2025 9:41 AM EDT Oxygen Saturation 96% 01/31/2025 9:41 AM EDT Inhaled Oxygen Concentration - - Weight 130 kg (286 lb 2.5 oz) 01/31/2025 9:41 AM EDT Height 172.7 cm (5' 7.99 ) 01/31/2025 9:41 AM ED T Body Mass Index 43.52 01/31/2025 9:41 AM EDT documented in this encounter Miscellaneous Notes * Progress Notes - Yolande Mccullough APRN - 01/31/2025 9:30 AM EDT Images from the original note were not included. Division of Hematology and Blood & Marrow Transplant Clinic Note Patient Name: Emmett Pathak is a 59 y.o. male Date of : 1965 Primary Care Provider: Bola Archuleta MD Referring Physician: No referring provider defined for this encounter. 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 Cancer Staging Multiple myeloma in remission (CMS/HCC) Staging form: Plasma Cell Myeloma and Plasma Cell Disorders, AJCC 8th Edition - Clinical: RISS Stage I (Doip-7-frrqgwflkkgcw (mg/L): 2.3, Albumin (g/dL): 4.3, ISS: Stage I, High-risk cytogenetics: Absent, LDH: Normal) - Signed by Facundo Jansen MD on 01/19/2021 Treatment Plan: Revlimid Maintenance Subjective Interval History: Mr. Emmett Pathak presents to clinic 01/31/2025 for routine follow up of multiple myeloma on Revlimid maintenance therapy. Denies any acute changes from his last visit. Has diarrhea nearly every day for the past several months. Usually hits him after a large meal. Usually small or medium sized meals he tolerates okay. Keeps Imodium and Kaopectate in the car to take as needed. For the last few months he has felt like he had burning in his kidneys , which occurs about 1-2x per week. Nephrology says its not a kidney infection and r/t Revlimid. Quit drinking soft drinks and that hasn't improved symptoms either. Insurance just changed one of his DM medications, which he is not happy about. [facility] specialty mail-order pharmacy used to have him call when he had 5 Revlimid left, now he has to call with 10-11 pills left. SOA with exertion the past couple of days. Reports he is taking Xarelto every day. Feels neuropathy is getting worse. Can't feel legs up to his knees and now starting to not be able to feel his hands. Reports he's quit looking at his FSB[employer] and no longer checks at home because he says his provider (that asked him to journal values) didn't even look at it, so he felt like it was a waste of his time. Chronic stable back pain, using tramadol intermittently. No longer going to pain management. Rating5/10 today. Denies fevers, recent/recurrent infections, LAD, night sweats, weight loss, abnormal bruising/ bleeding, and new MSK pain. Review of Systems Constitutional: Negative for appetite change, fatigue and fever. Eyes: Positive for eye problems. Respiratory: Positive for shortness of breath (with exertion the past few days). Cardiovascular: Positive for leg swelling. Negative for chest pain and palpitations. Gastrointestinal: Positive for diarrhea (most days). Negative for constipation, nausea and vomiting. Musculoskeletal: Positive for back pain and gait problem. Neurological: Positive for gait problem and numbness. All other systems reviewed and are negative. Current Outpatient Medications: amLODIPine (Norvasc) 5 MG tablet, Take 1 tablet (5 mg) by mouth daily., Disp: , Rfl: ascorbic acid (vitamin C) 1000 MG tablet, Take 1 tablet (1,000 mg) by mouth daily., Disp: , Rfl: Calcium Carb-Cholecalciferol (GNP Calcium 600 +D3) 600-800 MG-UNIT tablet, Take 1 tablet by mouth 2(two) times a day., Disp: 180 tablet, Rfl: 4 Farxiga 10 MG tablet, Take 1 tablet (10 mg) by mouth Daily., Disp: , Rfl: furosemide (Lasix) 20 MG tablet, 1 tablet Orally Once a day as needed, Disp: , Rfl: glimepiride (Amaryl) 4 MG tablet, Take 2 tablets (8 mg) by mouth daily before breakfast., Disp: , Rfl: insulin degludec (Tresiba FlexTouch) 100 UNIT/ML injection, Inject 55 Units under the skin every morning., Disp: , Rfl: Jentadueto 2.5-1000 MG tablet, Take 2 tablets by mouth 1 (one) time each day., Disp: , Rfl: KLOR-CON 20 MEQ ER tablet, TAKE 1 TABLET DAILY for 90 days, Disp: , Rfl: lenalidomide (Revlimid) 10 MG capsule, TAKE 1 CAPSULE BY MOUTH 1 TIME A DAY. DO NOT BREAK, OPEN, ORCHEW CAPSULE. TAKE WHOLE WITH WATER., Disp: 28 capsule, Rfl: 0 lisinopril-hydroCHLOROthiazide 20-25 MG tablet, 1 tab(s) orally once a day, Disp: , Rfl: Multiple Vitamin (Multi Vitamin) tablet, Take 1 tablet by mouth Daily., Disp: , Rfl: pravastatin (Pravachol) 40 MG tablet, 1 tab(s) orally once a day - hold until you see Dr. Jansen, Disp: , Rfl: traMADol (Ultram) 50 MG tablet, Take 1 tablet (50 mg) by mouth every 6 hours as needed for severe pain., Disp: , Rfl: Xarelto 20 MG tablet, Take 1 tablet (20 mg) by mouth 1 (one) time each day with dinner., Disp: , Rfl: Zinc 50 MG capsule, Take 50 mg by mouth., Disp: , Rfl: sAXagliptin-metFORMIN ER (Kombiglyze XR) 2.5-1000 MG tablet sustained-release 24 hour, Take 1 tablet by mouth 2 times a day. (Patient not taking: Reported on 01/31/2025), Disp: , Rfl: No current facility-administered medications for this visit. History: Oncology History Overview Note ID: ISS stage I kappa light chain multiple myeloma presenting with thoracic spinal plasmacytoma status post autologous hematopoietic stem cell transplantation June 02, 2019. Hematologic History: Mr. Pathak reportedly developed significant chest wall discomfort in September 2018. He eventually sought medical care and CT scan reportedly demonstrated a large thoracic paraspinal mass from T4 to T5 with right fifth rib mass extension. This was confirmed with thoracic spine MRI October 12, 2018 with a 6 x 3.6 x 4 cm right paraspinal mass of the thoracic spine including epidural extension with T4 and T5 vertebral bodies. On the right of the T11 to similar lesion was also seen as well as on the left. T6 1 centimeter lesion. On October 30, 2018, he underwent CT-guided thoracic spinal mass biopsy with reported pathology consistent with plasmacytoma. On November 11, 2018 a bone marrow biopsy was performed but reportedly inconclusive morphologically. Flow cytometry demonstrated a 3% kappa restricted plasma cell population. Immune histochemical stainsshowed 3-5% kappa restricted plasma cells. Due to significant symptoms and concern regarding spinal cord compromise. Mr. Pathak was referred to radiation medicine at the [facility]. He began radiation therapy to his thoracic spineApr2018 and completed 10 fractions of treatment schedule. OUTSIDE CT/PET scan obtained 12/01/18report was reviewed and demonstrated; T4/5 vertebral bodies large soft tissue component measuring 3.7 x 5.9 cm in dimension with SUV 13.6. Left Iliac lesion with SUV 9.5 Multiple hypermetabolic lyticbony lesions consistent with multiple myeloma (T4/5, T11, multiple ribs and left pelvis). He was referred to the [facility] hematology program December 07, 2018 for discussion regarding his newly diagnosed multiple myeloma. He proceeded with repeat bone marrow biopsy December 15, 2018 , which demonstrated: PERIPHERAL BLOOD AND BONE MARROW, RIGHT POSTERIOR ILIAC CREST (PERIPHERAL SMEAR, ASPIRATE SMEAR, AND CORE BIOPSY): - RESIDUAL PLASMA CELL NEOPLASM INVOLVING NORMOCELLULAR BONE MARROW WITH TRILINEAGE HEMATOPOIESIS (10-15% KAPPA CLONAL PLASMA CELLS AND 40% CELLULARITY). - Positive for monosomy 13: 76% of interphase cells. - Negative for trisomy 17, monosomy 17 and deletion of 17p - Positive for 1p- and 1q+:70% of interphase cells examined show a deletion of 1p and gain of 1q. With his diagnosis of kappa restricted multiple myeloma. He was initiated on systemic chemotherapy,including Revlimid Velcade and dexamethasone beginning January 01, 2019. Treatment was complicated withright lower extremity deep venous thrombosis March 08, 2019. He was placed on enoxaparin therapy. With treatment his [place] light chain values normalized. He underwent repeat bone marrow biopsy April 21, 2019. It demonstrated: BONE MARROW ASPIRATE AND BIOPSY (RIGHT POSTERIOR ILIAC CREST): -SLIGHTLY HYPOCELLULAR BONE MARROW WITH EOSINOPHILIA AND 8% POLYTYPIC PLASMA CELLS, SEE COMMENT. COMMENT Plasma cells are slightly increased at 8% of the differential on aspirate.Immunohistochemical stains on the biopsy show approximately 5% plasma cells without light chain restriction. He then underwent workup evaluations including pulmonary function testing, April 29, 2019 that demonstrated: FVC Liters 5.04 5.56 110 FEV1 Liters 3.85 4.48 116 FEV1/FVC % 76 81 DLCO mL/mmHg/min 29.8 37.8 127 DL Adj mL/mmHg/min 29.8 35.9 121 An echocardiogram obtained April 29, 2019 demonstrated: The left ventricle is grossly normal size. The left ventricular ejection fraction is grossly normal. The visually estimated LVEF is '50-60%'. No regional wall motion abnormalities noted. The right ventricle is grossly normal size. The right ventricular systolic function is normal. Mild aortic root dilatation. He was deemed eligible for autologous hematopoietic stem cell transplantation. Retransplantation disease status: CR1 Comorbid index score: 2 (BMI, DM) He presented May 10, 2019 to consent for autologous hematopoietic stem cell transplant. He received high-dose melphalan chemotherapy May 31, 2019. He was then admitted to the [facility] June 01, 2019 for stem cell reinfusion. He experienced expected toxicities of autologous hematopoietic stem cell transplantation including cytopenias and GI toxicity. Clinically he did well, engrafted and was transitioned to outpatient care June 14, 2019. His pheresis catheter was discontinued prior to discharge. A repeat duplex ultrasound of his right lower extremity was performed during hospitalization which demonstrated persistent deep venous thrombosis. Hence, he was continued on outpatient low molecular weight heparin. Clinically he improved and was transi tioned to [facility] as an outpatient. He recovered from his transplantation. He then went on to receive a repeat bone marrow biopsy September 10, 2019 which demonstrated: PERIPHERAL BLOOD AND BONE MARROW, RIGHT POSTERIOR ILIAC CREST (PERIPHERAL SMEAR, ASPIRATE SMEAR, CORE BIOPSY): - NORMOCELLULAR BONE MARROW WITH ESSENTIALLY UNREMARKABLE TRILINEAGE HEMATOPOIESIS; NO INCREASE IN PLASMA CELLS. - NO DIAGNOSTIC MORPHOLOGIC OR IMMUNOPHENOTYPIC EVIDENCE OF INVOLVEMENT BY PLASMA CELL NEOPLASM. Cytogenetic FISH analysis was negative. He was placed on a Revlimid maintenance therapy October of 2019. Patient wanted to avoid Velcade due to peripheral neuropathies. He ended up having worsening back pain and was seen by pain management. Ultimately seen by neurosurgery and underwent T4, T5, T11 vertebroplasty January 10, 2020. His bisphosphonate therapy and Revlimid were held for the purposes of the procedure. Both were resumed. Zometa transitioned to Q3 months in 05/2021. Continued to have problems with mid-back pain and reduced functional capacity of his left leg. Was seen by [facility] PM&R and pain management. He self-stopped Xarelto around May 2023 due to financial burden and subsequently developed pulmonary embolus Sep 2023 requiring RHC and mechanical thrombectomy. Xarelto was resumed following procedure. Revlimid was held during this time and resumed in October 2023. Multiple myeloma in remission (CMS/HCC) 11/11/2018 Initial Diagnosis Multiple myeloma ([facility]) 11/11/2018 Cancer Staged Staging form: Plasma Cell Myeloma and Plasma Cell Disorders, AJCC 8th Edition, Clinical: RISS StageI (Gzly-5-hempzukeufvcu (mg/L): 2.3, Albumin (g/dL): 4.3, ISS: Stage I, High-risk cytogenetics: Absent, LDH: Normal) - Signed by Facundo Jansen MD on 01/19/2021 06/01/2019 Bone Marrow Transplant Event Autologous Hematopoietic stem cell transplant Past Medical History: Diagnosis Date Acute kidney injury ([facility]) 01/26/2024 Acute respiratory failure with hypoxia 01/26/2024 Acute saddle pulmonary embolism ([facility]) 01/26/2024 Allergic rhinitis 02/27/2021 CAP (community acquired pneumonia) 01/26/2024 Cellulitis 01/26/2024 Chronic pain syndrome 10/07/2019 Elevated troponin 01/26/2024 Essential (primary) hypertension HTN (hypertension) Essential hypertension 02/27/2021 H/O deep venous thrombosis 02/27/2021 Hypokalemia 01/26/2024 Lytic bone lesions on xray 02/27/2021 Multiple myeloma 01/19/2021 Non compliance w medication regimen 01/26/2024 Other hyperlipidemia 02/27/2021 Peripheral neuropathy 02/27/2021 Pneumonia due to COVID-19 virus 01/26/2024 Right ventricular dilation 01/26/2024 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 ([facility]) Type 2 diabetes mellitus with hyperglycemia, without long-term current use of insulin ([facility]) 02/27/2021 Past Surgical History: Procedure Laterality Date BACK SURGERY N/A CATARACT EXTRACTION, BILATERAL 04/2023 SPINE SURGERY N/A TONSILLECTOMY N/A Family History Problem Relation Name Age of Onset Diabetes Mother Diabetes Other Social History Tobacco Use Smoking status: Never Smokeless tobacco: Never Substance Use Topics Alcohol use: Not Currently Drug use: Not Currently Objective Visit Vitals BP 116/76 (BP Location: Left arm, Patient Position: Sitting, BP Cuff Size: Adult) Pulse 89 Temp 36.6 ??C (97.8 ??F) (Temporal) Resp 16 Ht 1.727 m (5' 7.99 ) Wt 130 kg (286 lb 2.5 oz) SpO2 96% BMI 43.52 kg/m?? Smoking Status Never BSA 2.5 m?? Physical Exam Vitals reviewed. Constitutional: General: He is not in acute distress. Appearance: Normal appearance. He is obese. He is not ill-appearing. HENT: Head: Normocephalic and atraumatic. Eyes: Extraocular Movements: Extraocular movements intact. Conjunctiva/sclera: Conjunctivae normal. Cardiovascular: Rate and Rhythm: Normal rate and regular rhythm. Heart sounds: Normal heart sounds. Pulmonary: Effort: Pulmonary effort is normal. Breath sounds: Normal breath sounds. Abdominal: General: Bowel sounds are normal. Palpations: Abdomen is soft. Musculoskeletal: General: Normal range of motion. Cervical back: Neck supple. No bony tenderness. Thoracic back: Bony tenderness present. Lumbar back: Bony tenderness present. Skin: General: Skin is warm and dry. Coloration: Skin is not jaundiced or pale. Findings: No bruising, erythema, lesion or rash. Neurological: General: No focal deficit present. Mental Status: He is alert and oriented to person, place, and time. Mental status is at baseline. Motor: No weakness. Gait: Gait normal. Psychiatric: Mood and Affect: Mood normal. Behavior: Behavior normal. Performance Status: Symptomatic; fully ambulatory 80, Normal activity with effort; some signs or symptoms of disease (ECOG equivalent 1) Pain Scale: 5/10 Labs: Office Visit on 01/31/2025 Component Date Value Ref Range Status Glucose, Plasma 01/31/2025 169 (H) 74 - 99 mg/dL Final BUN, Plasma 01/31/2025 14 8 - 23 mg/dL Final Creatinine, Plasma 01/31/2025 0.87 0.70 - 1.20 mg/dL Final BUN/Creatinine Ratio 01/31/2025 16 Final Sodium, Plasma 01/31/2025 141 136 - 145 mmol/L Final Potassium, Plasma 01/31/2025 3.4 (L) 3.6 - 4.9 mmol/L Final Chloride, Plasma 01/31/2025 107 97 - 107 mmol/L Final CO2, Plasma 01/31/2025 22 22 - 29 mmol/L Final Anion Gap 01/31/2025 12 6 - 16 mmol/L Final Total Calcium, Plasma 01/31/2025 8.7 (L) 8.9 - 10.2 mg/dL Final Total Protein 01/31/2025 7.2 6.3 - 7.9 g/dL Final Albumin, Plasma 01/31/2025 4.0 3.5 - 5.2 g/dL Final AST, Plasma 01/31/2025 24 10 - 50 U/L Final ALT, Plasma 01/31/2025 28 10 - 50 U/L Final Alkaline Phosphatase, Plasma 01/31/2025 54 40 - 115 U/L Final Total Bilirubin, Plasma 01/31/2025 0.4 0.2 - 1.1 mg/dL Final eGFRcr 01/31/2025 98.2 mL/min/1.73m*2 Final WBC Count 01/31/2025 5.77 3.70 - 10.30 10*3/uL Final RBC Count 01/31/2025 5.24 4.60 - 6.10 10*6/uL Final HGB 01/31/2025 15.5 13.7 - 17.5 g/dL Final HCT 01/31/2025 45.6 40.0 - 51.0 % Final Platelet Count 01/31/2025 176 155 - 369 10*3/uL Final MCV 01/31/2025 87 79 - 98 fL Final MCH 01/31/2025 29.6 26.0 - 32.0 pg Final MCHC 01/31/2025 34.0 30.7 - 35.5 g/dL Final RDW 01/31/2025 15.9 (H) 11.5 - 14.5 % Final MPV 01/31/2025 10.6 8.8 - 12.5 fL Final nRBC 01/31/2025 0.0 <=0.0 per 100 WBCs Final Differential Type 01/31/2025 Automated Final Neutrophils % 01/31/2025 63 % Final Lymphocytes % 01/31/2025 15 % Final Monocytes % 01/31/2025 10 % Final Eosinophils % 01/31/2025 8 % Final Basophils % 01/31/2025 3 % Final Immature Granulocytes % 01/31/2025 1 % Final Neutrophils Absolute 01/31/2025 3.67 1.60 - 6.10 10*3/uL Final Lymphocytes Absolute 01/31/2025 0.85 (L) 1.20 - 3.90 10*3/uL Final Monocytes Absolute 01/31/2025 0.59 0.30 - 0.90 10*3/uL Final Eosinophils Absolute 01/31/2025 0.43 0.00 - 0.50 10*3/uL Final Basophils Absolute 01/31/2025 0.15 (H) 0.00 - 0.10 10*3/uL Final Immature Granulocytes Absolute 01/31/2025 0.08 (H) 0.00 - 0.06 10*3/uL Final Total Protein 01/31/2025 7.2 6.2 - 7.7 g/dL Final IGA 01/31/2025 330 75 - 400 mg/dL Final IGG 01/31/2025 1,594 (H) 720 - 1,589 mg/dL Final IGM 01/31/2025 23 (L) 35 - 225 mg/dL Final Lab Results Component Value Date/Time PATHINTERP 10/29/2024 08:50 AM The protein electrophoretic pattern reveals elevated alpha-2 fraction. This pattern is consistent with an acute inflammatory response which may be associated with infection, trauma, disorders resulting in increased tissue turnover or necrosis, and a variety of other inflammatory conditions. PATHINTERP 10/29/2024 08:50 AM There are no qualitative abnormalities present in the IgG, IgA, IgM, kappa or lambda light chains as observed by immunofixation electrophoresis. Immunochemical quantitation shows that the IgM level is mildly depressed, whereas the IgA concentration is within reference limits and IgG is just above. Lab Results Component Value Date/Time KAPPA 63.59 (H) 10/29/2024 08:50 AM KAPPA 51.13 (H) 08/05/2024 12:50 PM KAPPA 68.97 (H) 04/23/2024 09:25 AM KAPPA 48.72 (H) 01/26/2024 09:01 AM Lab Results Component Value Date/Time LAMBDA 42.78 (H) 10/29/2024 08:50 AM LAMBDA 32.61 (H) 08/05/2024 12:50 PM LAMBDA 34.90 (H) 04/23/2024 09:25 AM LAMBDA 32.26 (H) 01/26/2024 09:01 AM Lab Results Component Value Date/Time KAPPALAMBDA 1.49 10/29/2024 08:50 AM KAPPALAMBDA 1.57 08/05/2024 12:50 PM KAPPALAMBDA 1.98 (H) 04/23/2024 09:25 AM KAPPALAMBDA 1.51 01/26/2024 09:01 AM Lab Results Component Value Date/Time IGA 330 01/31/2025 08:55 AM IGA 320 10/29/2024 08:50 AM IGA 338 08/05/2024 12:50 PM IGA 318 04/23/2024 09:25 AM IGA 299 01/26/2024 09:01 AM Lab Results Component Value Date/Time IGG 1,594 (H) 01/31/2025 08:55 AM IGG 1,594 (H) 10/29/2024 08:50 AM IGG 1,465 08/05/2024 12:50 PM IGG 1,540 04/23/2024 09:25 AM IGG 1,470 01/26/2024 09:01 AM Lab Results Component Value Date/Time IGM 23 (L) 01/31/2025 08:55 AM IGM 25 (L) 10/29/2024 08:50 AM IGM 27 (L) 08/05/2024 12:50 PM IGM 28 (L) 04/23/2024 09:25 AM IGM 27 (L) 01/26/2024 09:01 AM Assessment/Plan ISS stage I kappa light chain multiple myeloma presenting with thoracic spinal plasmacytoma status post autologous hematopoietic stem cell transplantation June 02, 2019. Treatment History: XRT to Thoracic Spine x 10Fr (11/30/18) Induction with Revlimid, Velcade, Dexamethasone (01/01/19-- ) --- Pre-Transplant Achieved: CR1 --- Melphalan: 05/31/19 Auto-HCI, T(0): 06/01/19 --- Post-Transplant Achieved: CR1 --- Revlimid maintenance (10/2019-- Present) CIBMTR reporting guidelines: Cause of (Non-applicable) Subsequent HCT information (Non-applicable) Liver prophylaxis therapy (None) Veno-occlusive disease (VOD)/sinusoidal obstruction syndrome (SOS) & date (none) Any new malignancy (None) Relapse/progression post HCT, date, intervention given (none) Therapy given for reason other than relapse,/persistent/ progressive disease (Revlimid maintenance ) Current disease status: CR1 Date assessed: 01/31/2025 Therapy and Plan: Mr. Pathak is doing well today from a myeloma perspective. Since transplant in 2018 he has remainedin remission while on Revlimid maintenance therapy without symptomatic or biochemical progression. Skeletal survey 12/29/23 demonstrated no new lytic lesions. Mr. Pathak is aware that despite radiationtherapy and transplant, he may continue to have residual pain in areas previously affected by myeloma. He is encouraged to control blood glucose levels in order to slow/ prevent progression of peripheral neuropathy likely worsened by chronic uncontrolled diabetes. - Will continue Revlimid 10mg daily for as long as Mr. Pathak tolerates and disease remains controlled. - Will proceed with Zometa today. Infectious Received COVID vaccines: 10/02/20, 05/28/21, 01/10/22, 08/09/22 Received annual flu vaccine 05/23/24 Anticoagulation H/O deep venous thrombosis Pulmonary Embolus s/p RHC and thrombectomy (09/2023) He self-stopped Xarelto around May 2023 due to financial burden and subsequently developed pulmonary embolus Sep 2023 requiring RHC and mechanical thrombectomy. Xarelto was resumed following procedure. Will need lifelong anticoagulation with Xarelto Cardiac: Essential hypertension HLD BLE Edema Continue Amlodipine, furosemide, Lisinopril/hydrochlorothiazide, Pravastatin Pulmonary: Hx of seasonal allergies No longer taking Zyrtec Metabolic/ Renal: History of Lytic Lesions 2/2 Multiple Myeloma Zometa every 3 months, will receive dose today Ca+VitD Cautioned against ONJ Insulin Dependent T2DM Farxiga, glimepiride, Tresiba, Jentadueto, saxagliptin-Metformin Encouraged improved glycemic control to prevent further complications and progression of neuropathy H/o Hypokalemia K 3.4 today Continue supplemental potassium as managed by PCP Will continue to monitor Neurologic: Peripheral neuropathy; Bilateral lower extremity peripheral neuropathy Stopped Lyrica due to insurance, reports no changes to neuropathy symptoms since discontinuation. Potentially side effect of Revlimid vs uncontrolled diabetes Will continue to monitor Hx of Dizziness, RESOLVED Reports this began after his second bottle of the off brand Revlimid. Continue to take Revlimid in the evening to see if this helps manage dizziness symptoms. Will refill Revlimid with dispense as written Encouraged him to call clinic if symptoms continue or worsen, if symptoms persist will consider discontinuing Revlimid. Pain control: Chronic pain syndrome Quit going to the pain management clinic February 2024 due to co-pay Uses Tramadol TID as needed Encouraged to take tylenol prn for pain control [facility] HEMATOLOGY/BMT AND CELLULAR THERAPY PROGRAM [address] [place] [phone] * Progress Notes - Sean Ayala, PharmD - 01/31/2025 9:30 AM EDT Pharmacy Hematology/Oncology Treatment Follow-Up Note Emmett Pathak is a 59 y.o. male with Cancer Staging Multiple myeloma Staging form: Plasma Cell Myeloma and Plasma Cell Disorders, AJCC 8th Edition - Clinical: RISS Stage I (Ppih-2-eqirdwortlunz (mg/L): 2.3, Albumin (g/dL): 4.3, ISS: Stage I, High-risk cytogenetics: Absent, LDH: Normal) - Signed by Facundo Jansen MD on 01/19/2021 Treatment Plan reviewed for lenalidomide maintenance. 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 Patient notes some new dizziness with generic lenalidomide formulation and did experience a fall last month but is able to perform most activities without issue. Patient discussed this with Dr. Jansen and will re- evaluate administration time of day to see if symptoms resolve. He will contact the clinic if any continued issues. 08/05/23: Patient voiced concern for increased forgetfulness and neuropathy which he attributes to generic lenalidomide, which he was recently switched to. Will attempt to send Revlimid JL with nextfill at his request. 01/26/24: Patient had pulmonary embolus in 09/2023 s/p RHC and thrombectomy, now on lifelong Xarelto therapy. Continuing Revlimid therapy. 08/05/24: Mr. Pathak is doing well today. Labs appropriate to continue Revlimid, patient to receiveZometa in infusion today. 01/31/25: Patient continues to tolerate treatment well, and labs meet parameters to continue on current dose. Patient also receiving Zometa every 3 months since 05/2021, recently held for both dental procedureand subsequent pneumonia. Resumed 01/2023 and due today, 08/05/2024. Recent Labs: Lab Results Component Value Date WBC 5.77 01/31/2025 HGB 15.5 01/31/2025 HCT 45.6 01/31/2025 MCV 87 01/31/2025 PLT 176 01/31/2025 Lab Results Component Value Date GLUCOSE 169 (H) 01/31/2025 CALCIUM 8.7 (L) 01/31/2025 NA 141 01/31/2025 K 3.4 (L) 01/31/2025 CO2 22 01/31/2025 CL 107 01/31/2025 BUN 14 01/31/2025 CREATININE 0.87 01/31/2025 Lab Results Component Value Date ALT 28 01/31/2025 AST 24 01/31/2025 ALKPHOS 54 01/31/2025 BILITOT 0.4 01/31/2025 Lab Results Component Value Date NEUTROABS 3.67 01/31/2025 Lab Results Component Value Date MG 1.8 (L) 06/14/2019 Lab Results Component Value Date TSH 2.64 04/29/2019 No results found for: UTPCR Vitals: Visit Vitals BP 116/76 (BP Location: Left arm, Patient Position: Sitting, BP Cuff Size: Adult) Pulse 89 Temp 36.6 ??C (97.8 ??F) (Temporal) Resp 16 Treatment Plan: Lenalidomide 10 mg PO daily [x] No dose adjustments made Current Treatment History: Lenalidomide: 10/2019-present Prior Treatment History: Melphalan conditioning with autologous stem cell rescue 05/31/2019 Assessment/Plan: Rx filled via: [facility] Refills will be due: Monthly Patient will return to clinic in 3 months. Will follow-up at that time. Pharmacist Attestation: Sean Ayala PharmD Clinical Oncology Pharmacist documented in this encounter Plan of Treatment Upcoming Encounters Date Type Department Care Team (Late st Contact Info) Description 05/06/2025 11:00 AM EDT Clinical Support [facility] Hematology/BMT and Cellular Therapy Program 750 [facility], [address] [place] [phone] 05/06/2025 11:30 AM EDT Office Visit [facility] Hematology/BMT and Cellular Therapy Program 750 [facility], [address] [place] [phone] Yolande Mccullough, TRIAL JUSTICE 800 [facility] [address] [place] [phone] documented as of this encounter Procedures Procedure Name Priority Date/Time Associated Diagnosis Comments QIG, SERUM Routine 01/31/2025 8:55 AM EDT Multiple myeloma in remission ([facility]) KAPPA LAMBDA QUANTITATIVE FREE LIGHT CHAINS WITH RATIO Routine 01/31/2025 8:55 AM EDT Multiple myeloma in remission ([facility]) TOTAL PROTEIN, SERUM Routine 01/31/2025 8:55 AM EDT Multiple myeloma in remission ([facility]/HCC) PROTEIN ELECTROPHORESIS, SERUM Routine 01/31/2025 8:55 AM EDT Multiple myeloma in remission ([facility]) IMMUNOFIXATION ELECTROPHORESIS Routine 01/31/2025 8:55 AM EDT Multiple myeloma in remission ([facility]) ASHA SERUM, PATHOLOGIST INTERPRETATION Routine 01/31/2025 8:55 AM EDT Multiple myeloma in remission ([facility]/HCC) PROTEIN ELECTROPHORESIS, PATHOLOGIST INTERPRETATION Routine 01/31/2025 8:55 AM EDT Multiple myeloma in remission (CMS/HCC) KAPPA LAMBDA QUANT FREE LIGHT CHAINS WITH RATIO ORDERABLE Routine 01/31/2025 8:55 AM EDT Multiple myeloma in remission (CMS/HCC) CBC WITH AUTO DIFFERENTIAL Routine 01/31/2025 8:55 AM EDT Multiple myeloma in remission (CMS/HCC) IMMUNOFIXATION ELECTROPHORESIS Routine 01/31/2025 8:55 AM EDT Multiple myeloma in remission (CMS/HCC) PROTEIN ELECTROPHORESIS, SERUM Routine 01/31/2025 8:55 AM EDT Multiple myeloma in remission (CMS/HCC) COMPREHENSIVE METABOLIC PANEL, PLASMA Routine 01/31/2025 8:55 AM EDT Multiple myeloma in remission (CMS/HCC) documented in this encounter Results * ASHA serum, pathologist interpretation (01/31/2025 8:55 AM EDT) Clinical Diagnosis, ASHA Serum ISS stage I kappa light chain multiple myeloma 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 02/03/2025 11:02 AM EDT [facility] Interpretation , ASHA Serum There are no qualitative abnormalities present in the IgG, IgA, IgM, kappa or lambda light chains as observed by immunofixation electrophoresis. Immunochemical quantitation shows that the IgM level is mildly elevated, whereas the IgM concentration is slightly depressed and IgA concentration is within reference limits. A resident was involved in the service. I attest I examined the relevant preparations for the specimens and confirmed the diagnosis or interpretation. 02/03/2025 11:02 AM EDT [facility] Pathologist Signature, ASHA Serum Reviewed by: Castillo Vail MD 02/03/2025 11:02 AM EDT [facility] LAB CP ASR DISCLAIMER Yes 02/03/2025 11:02 AM EDT [facility] Blood Venous blood specimen / Unknown Venipuncture / Unknown 01/31/2025 8:55 AM EDT 01/31/2025 9:24 AM EDT Yolande Mccullough APRN LAB PATHOLOGY ORDERABLES Final Result Performing Organization Address [facility]/ZIP Co de Phone Number [facility] [address] [place] [address] * Protein electrophoresis serum, pathologist interpretation (01/31/2025 8:55 AM EDT) Clinical Diagnosis, SPEP Multiple myeloma 02/01/2025 9:59 AM EDT [facility] Interpretation , SPEP The total protein and serum protein electrophoretic fractions are within normal limits. A resident was involved in the service. I attest I examined the relevant preparations for the specimens and confirmed the diagnosis or interpretation. 02/01/2025 9:59 AM EDT [facility] Pathologist Signature, SPEP Reviewed by: Herrera Farfan MD 02/01/2025 9:59 AM EDT [facility] LAB CP ASR DISCLAIMER Yes 02/01/2025 9:59 AM EDT [facility] Blood Venous blood specimen / Unknown Venipuncture / Unknown 01/31/2025 8:55 AM EDT 01/31/2025 9:24 AM EDT Yolande Mccullough APRN LAB PATHOLOGY ORDERABLES Final Result Performing Organization Address [facility] Co de Phone Number [facility] [address] [place] [address] * (ABNORMAL) QIG, Serum (01/31/2025 8:55 AM EDT) IGA 330 75 - 400 mg/dL 01/31/2025 10:36 AM EDT [facility] IGG 1,594(H) 720 - 1,589 mg/dL 01/31/2025 10:36 AM EDT [facility] IGM 23(L) 35 - 225 mg/dL 01/31/2025 10:36 AM EDT [facility] Blood Venous blood specimen / Unknown Venipuncture / Unknown 01/31/2025 8:55 AM EDT 01/31/2025 9:24 AM EDT Yolande Micheline Mccullough APRN LAB BLOOD ORDERABLES Nadia l Result [facility] [address] [place] [address] * Immunofixation Electrophoresis (01/31/2025 8:55 AM EDT) [facility] Immunofixation Interpretation Pathology report to follow. 02/02/2025 3:34 PM EDT [facility] Blood Venous blood specimen / Unknown Venipuncture / Unknown 01/31/2025 8:55 AM EDT 01/31/2025 9:24 AM EDT Yolande Mccullough APRN LAB BLOOD ORDERABLES Nadia l Result Performing Organization Address City/[facility]/ZIP Co de Phone Number [facility] [address] [place] [address] * (ABNORMAL) [place] Lambda Quant Free Light Chains w/Ratio (01/31/2025 8:55 AM EDT) [facility] [place] Lambda Free Light Chain Ratio 1.55 0.26 - 1.65 Ratio 02/02/2025 1:09 AM EDT [facility] [place] Quant Free Light Chains 56.76(H) 3.30 - 19.40 mg/L 02/02/2025 1:09 AM EDT [facility] Lambda Quant Free Light Chains 36.55(H) 5.71 - 26.30 mg/L 02/02/2025 1:09 AM EDT [facility] Blood Venous blood specimen / Unknown Venipuncture / Unknown 01/31/2025 8:55 AM EDT 01/31/2025 9:24 AM EDT Narrative [facility] - 02/02/2025 1:09 AM EDT Undetected antigen excess is a rare event but cannot be excluded.If these free light chain results do not agree with other clinical or laboratory findings,or if the sample is from a patient that has previously demonstrated antigen excess,the results must be checked by retesting at a higher sample dilution. Results should always be interpreted in conjunction with other laboratory tests and clinical evidence; any anomalies should be discussed with the testing laboratory. Test performed at [facility],Special Chemistry Laboratory. Yolande Mccullough APRN LAB BLOOD ORDERABLES Nadia l Result Performing Organization Address City/[facility]/ZIP Co de Phone Number [facility] [address] [place] [address] * Total Protein, Serum (01/31/2025 8:55 AM EDT) Total Protein 7.2 6.2 - 7.7 g/dL 01/31/2025 10:36 AM EDT [facility] Blood Venous blood specimen / Unknown Venipuncture / Unknown 01/31/2025 8:55 AM EDT 01/31/2025 9:24 AM EDT [facility] [employer] LAB BLOOD ORDERABLES Nadia l Result Performing Organization Address City/[facility] [place] [address] * Protein Electrophoresis, Serum (01/31/2025 8:55 AM EDT) Albumin Electrophoresis, Serum 3.9 3.6 - 4.7 g/dL 02/01/2025 2:03 AM EDT [facility] Alpha 1 Globulin Electrophoresis, Serum 0.2 0.2 - 0.4 g/dL 02/01/2025 2:03 AM EDT [facility] Alpha 2 Globulin Electrophoresis, Serum 0.8 0.5 - 0.9 g/dL 02/01/2025 2:03 AM EDT [facility] Beta 1 Globulin Electrophoresis, Serum 0.5 0.3 - 0.5 g/dL 02/01/2025 2:03 AM EDT [facility] Beta 2 Globulin Electrophoresis, Serum 0.4 0.2 - 0.5 g/dL 02/01/2025 2:03 AM EDT [facility] Gamma Globulin Electrophoresis, Serum 1.5 0.6 - 1.5 g/dL 02/01/2025 2:03 AM EDT [facility] Interpretation, Serum Protein Electrophoresis Pathology report to follow. 02/01/2025 2:03 AM EDT [facility] Blood Venous blood specimen / Unknown Venipuncture / Unknown 01/31/2025 8:55 AM EDT 01/31/2025 9:24 AM EDT us Yolande Mccullough [employer]ICE LAB BLOOD ORDERABLES Nadia lion Result [facility] [address] [place] [address] * (ABNORMAL) CBC and Differential (01/31/2025 8:55 AM EDT) WBC Count 5.77 3.70 - 10.30 10*3/uL LAB HEMATOLOGY METHOD 01/31/2025 9:[address] [facility] RBC Count 5.24 4.60 - 6.10 10*6/uL LAB HEMATOLOGY METHOD 01/31/2025 9:[address] [facility] HGB 15.5 13.7 - 17.5 g/dL LAB HEMATOLOGY METHOD 01/31/2025 9:[address] [facility] HCT 45.6 40.0 - 51.0 % LAB HEMATOLOGY METHOD 01/31/2025 9:[address] [facility] Platelet Count 176 155 - 369 10*3/uL LAB HEMATOLOGY METHOD 01/31/2025 9:[address] [facility] MCV 87 79 - 98 fL LAB HEMATOLOGY METHOD 01/31/2025 9:[address] [facility] MCH 29.6 26.0 - 32.0 pg LAB HEMATOLOGY METHOD 01/31/2025 9:[address] [facility] MCHC 34.0 30.7 - 35.5 g/dL LAB HEMATOLOGY METHOD 01/31/2025 9:[address] [facility] RDW 15.9(H) 11.5 - 14.5 % LAB HEMATOLOGY METHOD 01/31/2025 9:[address] [facility] MPV 10.6 8.8 - 12.5 fL LAB HEMATOLOGY METHOD 01/31/2025 9:[address] [facility] nRBC 0.0 <=0.0 per 100 WBCs LAB HEMATOLOGY METHOD 01/31/2025 9:[address] [facility] Differential Type Automated LAB HEMATOLOGY METHOD 01/31/2025 9:[address] [facility] Neutrophils % 63 % LAB HEMATOLOGY METHOD 01/31/2025 9:[address] [facility] Lymphocytes % 15 % LAB HEMATOLOGY METHOD 01/31/2025 9:[address] [facility] Monocytes % 10 % LAB HEMATOLOGY METHOD 01/31/2025 9:[address] [facility] Eosinophils % 8 % LAB HEMATOLOGY METHOD 01/31/2025 9:[address] [facility] Basophils % 3 % LAB HEMATOLOGY METHOD 01/31/2025 9:[address] [facility] Immature Granulocytes % 1 % LAB HEMATOLOGY METHOD 01/31/2025 9:[address] [facility] Neutrophils Absolute 3.67 1.60 - 6.10 10*3/uL LAB HEMATOLOGY METHOD 01/31/2025 9:[address] [facility] Lymphocytes Absolute 0.85(L) 1.20 - 3.90 10*3/uL LAB HEMATOLOGY METHOD 01/31/2025 9:[address] [facility] Monocytes Absolute 0.59 0.30 - 0.90 10*3/uL LAB HEMATOLOGY METHOD 01/31/2025 9:[address] [facility] Eosinophils Absolute 0.43 0.00 - 0.50 10*3/uL LAB HEMATOLOGY METHOD 01/31/2025 9:[address] [facility] Basophils Absolute 0.15(H) 0.00 - 0.10 10*3/uL LAB HEMATOLOGY METHOD 01/31/2025 9:[address] [facility] Immature Granulocytes Absolute 0.08(H) 0.00 - 0.06 10*3/uL LAB HEMATOLOGY METHOD 01/31/2025 9:[address] [facility] Blood Venous blood specimen / Unknown Venipuncture / Unknown 01/31/2025 8:55 AM EDT 01/31/2025 9:20 AM EDT [facility] - 01/31/2025 9:22 AM EDT Therapeutic decision making should be based on absolute values, rather than percentages. us Yolande Mccullough TRIAL JUSTICE LAB BLOOD ORDERABLES Nadia lion Result [facility] [address] [place] [address] * (ABNORMAL) Comprehensive Metabolic Panel, Plasma (01/31/2025 8:55 AM EDT) Glucose, Plasma 169(H) 74 - 99 mg/dL 01/31/2025 9:56 AM EDT [facility] BUN, Plasma 14 8 - 23 mg/dL 01/31/2025 9:56 AM EDT [facility] Creatinine, Plasma 0.87 0.70 - 1.20 mg/dL 01/31/2025 9:56 AM EDT [facility] BUN/Creatinine Ratio 16 01/31/2025 9:56 AM EDT [facility] Sodium, Plasma 141 136 - 145 mmol/L 01/31/2025 9:56 AM EDT [facility] Potassium, Plasma 3.4(L) 3.6 - 4.9 mmol/L 01/31/2025 9:56 AM EDT [facility] Chloride, Plasma 107 97 - 107 mmol/L 01/31/2025 9:56 AM EDT [facility] CO2, Plasma 22 22 - 29 mmol/L 01/31/2025 9:56 AM EDT [facility] Anion Gap 12 6 - 16 mmol/L 01/31/2025 9:56 AM EDT [facility] Total Calcium, Plasma 8.7(L) 8.9 - 10.2 mg/dL 01/31/2025 9:56 AM EDT [facility] Total Protein 7.2 6.3 - 7.9 g/dL 01/31/2025 9:56 AM EDT [facility] Albumin, Plasma 4.0 3.5 - 5.2 g/dL 01/31/2025 9:56 AM EDT [facility] AST, Plasma 24 10 - 50 U/L 01/31/2025 9:56 AM EDT [facility] ALT, Plasma 28 10 - 50 U/L 01/31/2025 9:56 AM EDT [facility] Alkaline Phosphatase, Plasma 54 40 - 115 U/L 01/31/2025 9:56 AM EDT [facility] Total Bilirubin, Plasma 0.4 0.2 - 1.1 mg/dL 01/31/2025 9:56 AM EDT [facility] eGFRcr 98.2 mL/min/1.7 3m*2 01/31/2025 9:56 AM EDT [facility] Comment:Reported eGFRcr in m L/min/1.73m2 is based the CKD-EPI 2020 equation that does not use a race coefficient. Blood Venous blood specimen / Unknown Venipuncture / Unknown 01/31/2025 8:55 AM EDT 01/31/2025 9:24 AM EDT Yolande Mccullough [employer]ICE LAB BLOOD ORDERABLES Nadia lion Result [facility] [address] [place] [address] documented in this encounter Visit Diagnoses Diagnosis Multiple myeloma in remission (CMS/HCC)- Primary Multiple myeloma in remission Long-term current use of immunomodulator Hx of autologous stem cell transplant (CMS/HCC) intermodal customer service (current) use of bisphosphonates Lytic bone lesions on xray documented in this encounter Additional Health Concerns Assessment Noted Time A fall risk assessment has been complete d for the patient 01/31/2025 11:18 AM EDT A Body Mass Index follow-up plan has been documented for the patient 01/31/2025 12:52 PM EDT documented as of this encounter Care Teams Coach Tour Driver Relationship Specialty Start Date End Date Bola Archuleta MD [address] [place] [address] PCP - General 01/05/21 documented as of this encounter
--- OUTSIDE RECORDS SUMMARY | 2025-01-31 11:00 | XMS_ITS | Encounter Summary ---
Author Organization [facility] Address [address] [place] [address] Care Team Providers Care Griddle Attendant Name Role Phone Bola Archuleta MD Primary Care Provider + [phone] Reason for Visit * Episode Based Medications (Routine) - Authorized Specialty Diagnoses / Procedures Referred By Scotty acevedo Referred To Contact Diagnoses Multiple myeloma in remission (CMS/HCC) Procedures (HEM/ONC) ZOLEDRONIC ACID Facundo Jansen MD 800 [facility] [address] [place] [address] Phone: tel: fax: [facility] [address] [place] [address] Phone: tel: Referral ID Status Reason Start Date Expiration Date V isits Requested Visits Authorized [id number] Authorized 01/19/2021 08/08/2025 1 30 Encounter Details Date Type Department Care Team (Latest Contact Info) Description 01/31/2025 11:00 AM EDT - 01/31/2025 11:59 PM EDT Hospital Encounter [facility] [address] [place] [address] Hx of autologous stem cell transplant (CMS/HCC) (Primary Dx); Multiple myeloma in remission (CMS/HCC); Lytic bone lesions on xray Discharge Disposition: Home or Self Care Social History Tobacco Use Types Packs/Day Years [...] Sign Reading Time Taken Comments Blood Pressure 134/85 01/31/2025 11:18 AM EDT Pulse 83 01/31/2025 11:18 AM EDT Temperature 36.4 C (97.6 F) 01/31/2025 11:18 AM EDT Respiratory Rate 16 01/31/2025 11:18 AM EDT Oxygen Saturation 97% 01/31/2025 11:18 AM EDT Inhaled Oxygen Concentration - - Weight 129 kg (283 lb 15.2 oz) 01/31/2025 11:18 AM EDT Height 172.7 cm (5' 8 ) 01/31/2025 11:18 AM EDT Body Mass Index 43.17 01/31/2025 11:18 AM EDT documented in this encounter Medications at Time of Discharge amLODIPine (Norvasc) 5 MG tablet Take 1 tablet (5 mg) by mouth daily. 10/01/2019 ascorbic acid (vitamin C) 1000 MG tablet Take 1 tablet (1,000 mg) by mouth daily. Calcium Carb-Cholecalcife rol (GNP Calcium 600 +D3) 600-800 MG-UNIT tablet Take 1 tablet by mouth 2 (two) times a day. 180 tablet 4 03/27/2021 furosemide (Lasix) 20 MG tablet 1 tablet Orally Once a day as needed 04/09/2024 glimepiride (Amaryl) 4 MG tablet Take 2 tablets (8 mg) by mouth daily before breakfast. insulin degludec (Tresiba FlexTouch) 100 UNIT/ML injection Inject 55 Units under the skin every morning. 09/20/2019 Jentadueto 2.5-1000 MG tablet Take 2 tablets by mouth 1 (one) time each day. 05/05/2023 KLOR-CON 20 MEQ ER tablet TAKE 1 TABLET DAILY for 90 days lenalidomide (Revlimid) 10 MG capsule TAKE 1 CAPSULE BY MOUTH 1 TIME A DAY. DO NOT BREAK, OPEN, OR CHEW CAPSULE. TAKE WHOLE WITH WATER. 28 capsule 01/25/2025 lisinopril-hydroC HLOROthiazide 20-25 MG tablet 1 tab(s) orally once a day 10/05/2019 Multiple Vitamin (Multi Vitamin) tablet Take 1 tablet by mouth Daily. pravastatin (Pravachol) 40 MG tablet 1 tab(s) orally once a day - hold until you see Dr. Jansen sAXagliptin-metFO RMIN ER (Kombiglyze XR) 2.5-1000 MG tablet sustained-release 24 hour Take 1 tablet by mouth 2 times a day. traMADol (Ultram) 50 MG tablet Take 1 tablet (50 mg) by mouth every 6 hours as needed for severe pain. Xarelto 20 MG tablet Take 1 tablet (20 mg) by mouth 1 (one) time each day with dinner. Zinc 50 MG capsule Take 50 mg by mouth. documented as of this encounter Miscellaneous Notes * Addendum Note - Veronica Birmingham RN - 01/31/2025 11:00 AM EDTEncounter addended by: Veronica Birmingham RN on: 01/31/2025 2:37 PM Actions taken: Check Out activity completed documented in this encounter Plan of Treatment Upcoming Encounters Date Type Department Care Team (Late st Contact Info) Description 05/06/2025 11:00 AM EDT Clinical Support [facility] Hematology/BMT and Cellular Therapy Program [address] [phone] 05/06/2025 11:30 AM EDT Office Visit [facility] Hematology/BMT and Cellular Therapy Program [address] [phone] Yolande Mccullough, MEDICAL BILLING ASSOCIATE 800 [facility] [address] [place] [phone] documented as of this encounter Visit Diagnoses Diagnosis Hx of autologous stem cell transplant (CMS/HCC)- Primary Multiple myeloma in remission (CMS/HCC) Multiple myeloma in remission Lytic bone lesions on xray documented in this encounter Administered Medications Inactive Administered Medications - up to 3 most recent administrations Medication Order MAR Action Action Date Dose Rate Site potassium chloride CR (Klor-Con) ER tablet 40 mEq 40 mEq, Oral, Once, 1 dose, On Fri01/31/25 at 1230, RoutineIndications:Hx of autologous stem cell transplant ([facility]) Given 01/31/2025 12:17 PM EDT 40 mEq zoledronic acid (Zometa) IVPB 4 mg 4 mg, Intravenous, Once, 1 dose, On Fri01/31/25 at 1245, Administer over 15 Minutes, RoutineIndications:Multiple myeloma in remission ([facility]),Lytic bone lesions on xray New Bag 01/31/2025 12:29 PM EDT 4 mg 400 mL/hr documented in this encounter Additional Health Concerns Assessment Noted Time A fall risk assessment has been complete d for the patient 01/31/2025 11:18 AM EDT A Body Mass Index follow-up plan has been documented for the patient 01/31/2025 12:52 PM EDT documented as of this encounter Care Teams Griddle Attendant Relationship Specialty Start Date End Date Bola Archuleta MD [address] [place] [phone] PCP - General 01/05/21 documented as of this encounter
--- OUTSIDE RECORDS SUMMARY | 2025-02-06 09:27 | XMS_ITS | Encounter Summary ---
Author Organization [facility] Address [address] [place] [address] Care Team Providers Care Sales Floor Manager Name Role Phone Bola Archuleta MD Primary Care Provider + [phone] Reason for Visit * Reason Comments Distress Screen Visit Encounter Details Date Type Department Care Team ([facility] st Contact Info) Description 02/17/2023 Social Work [facility] Hematology/BMT and Cellular Therapy Program [address] [place] [address] [place] [address] Vera Tam Social History Tobacco Use Types Packs/Day Years Used Date Smoking Tobacco: Never Smokeless Tobacco: Never Alcohol Use Standard Drinks/Week Comments Not Currently 0 (1 standard drink = 0.6 oz pur e alcohol) PHQ-2 Answer Date Recorded Patient Health Questionnaire-2 Score 0 02/27/2021 Sex and Gender Information Value Date Recorded Sex Assigned at Not on file Legal Sex Male 6:55 PM EDT Gender Identity Not on file Sexual Orientation Not on file documented as of this encounter Miscellaneous Notes * Progress Notes - Vera Tam - 02/17/2023 4:29 PM EDT Visit Type: PsychOncVT: Distress Screening Visit Time Spent with Patient and/or Caregivers: 15 minutes Services Provided: Clinical Navigation Referrals: Other- Financial Counseling Education: Financial Support/Aid and Insurance Narrative: general utility worker met with patient in exam room as a response to distress screen score. SW introduced self and nature of the visit. Patient reports that he is distressed due to concerns with insurance and copay amounts. He historically has utilized [facility] Copay Assistance program for Multiple Myeloma. However, his previous Copay Assist in November. He states that he and his attempted to apply last month when the application was open, however they never heard anything from [facility]. BETTIE was able to look further into this in S portal, which does not reflect an active application from last month. SW explained that there may have been a technical difficulty when applying online, and that the MM fund is currently closed for applications. However, SW referred patient to Financial Counseling to screen for FAP. SW let patient know that if MM fund does open again in the near future, that an application could be sent in. Patient expressed understanding and appreciation for assistance.He reports that he was on FAP at one point, but does not recall when. He denied any additional needs at the time of the visit. SW encouraged patient to reach out with any questions or additional needs should they arise. VIRGIL Jo, SCHOOL TRAFFIC GUARD [facility] Psych-Oncology Services [phone] documented in this encounter Plan of Treatment Upcoming Encounters Date Type Department Care Team (Late st Contact Info) Description 05/06/2025 11:00 AM EDT Clinical Support [facility] Hematology/BMT and Cellular Therapy Program [address] [phone] 05/06/2025 11:30 AM EDT Office Visit [facility] Hematology/BMT and Cellular Therapy Program [address] [phone] Yolande Mccullough, CARDIO CLINICIAN 800 [facility] [address] [place] [phone] documented as of this encounter Visit Diagnoses Not on filedocumented in this encounter Additional Health Concerns Assessment Noted Time A fall risk assessment has been complete d for the patient 02/17/2023 2:33 PM EDT documented as of this encounter Care Teams Sales Floor Manager Relationship Specialty Start Date End Date Bola Archuleta MD [address] [phone] PCP - General 01/05/21 documented as of this encounter
--- OUTSIDE RECORDS SUMMARY | 2025-02-06 09:27 | XMS_ITS | Encounter Summary ---
Author Organization [facility] Address [address] [place] [address] Care Team Providers Care Vest Front Presser Name Role Phone Bola Archuleta MD Primary Care Provider + [phone] Reason for Visit * Reason Comments Med Refill Encounter Details Date Type Department Care Team ([facility] Contact Info) Description 01/25/2025 Refill [facility] Hematology/BMT and Cellular Therapy Program [address] [phone] Facundo Jansen MD [address] [facility] [address] [place] [phone] Social History Tobacco Use Types Packs/Day Years [...] Upcoming Encounters Date Type Department Care Team ([facility] Contact Info) Description 05/06/2025 11:00 AM EDT Clinical Support [facility] Hematology/BMT and Cellular Therapy Program 750 [facility], [address] [place] [phone] 05/06/2025 11:30 AM EDT Office Visit [facility] Hematology/BMT and Cellular Therapy Program 750 [facility], [address] [place] [address] Yolande Mccullough, PERMIT SPECIALIST 800 [facility] [address] [place] [phone] documented as of this encounter Visit Diagnoses Not on filedocumented in this encounter Additional Health Concerns Assessment Noted Time A fall risk assessment has been complete d for the patient 10/29/2024 10:33 AM EST A Body Mass Index follow-up plan has been documented for the patient 10/29/2024 11:09 AM EST documented as of this encounter Care Teams Vest Front Presser Relationship Specialty Start Date End Date Bola Archuleta MD 1210 [facility] [address], [place] [address] PCP - General 01/05/21 documented as of this encounter
--- OUTSIDE RECORDS SUMMARY | 2025-02-06 09:27 | XMS_ITS | Encounter Summary ---
Author Organization [facility] Address [address] [place] [address] Care Team Providers Care Hadoop Analyst Name Role Phone Bola Archuleta MD Primary Care Provider + [phone] Encounter Details Date Type Department Care Team ([facility] Contact Info) Description 12/27/2024 Refill [facility] Hematology/BMT and Cellular Therapy Program [address] [place] [address] Facundo Jansen MD 800 [facility] [address] [place] [phone] Social History Tobacco Use Types Packs/Day Years [...] Upcoming Encounters Date Type Department Care Team ([facility] Contact Info) Description 05/06/2025 11:00 AM EDT Clinical Support [facility] Hematology/BMT and Cellular Therapy Program [address] [phone] 05/06/2025 11:30 AM EDT Office Visit [facility] Hematology/BMT and Cellular Therapy Program [address] [place] [address] Yolande Mccullough, INSTRUMENT TECH 800 [facility] [address] [place] [address] documented as of this encounter Visit Diagnoses Not on filedocumented in this encounter Additional Health Concerns Assessment Noted Time A fall risk assessment has been complete d for the patient 10/29/2024 10:33 AM EST A Body Mass Index follow-up plan has been documented for the patient 10/29/2024 11:09 AM EST documented as of this encounter Care Teams Hadoop Analyst Relationship Specialty Start Date End Date Bola Archuleta MD [address] [phone] PCP - General 01/05/21 documented as of this encounter
--- OUTSIDE RECORDS SUMMARY | 2025-02-06 09:27 | XMS_ITS | Clinical Summary ---
Author Organization [facility] Address [address] [place] [address] Care Team Providers Care Commercial Lending Assistant Name Role Phone Bola Archuleta MD Primary Care Provider + [phone] Allergies No known active allergies Medications amLODIPine (Norvasc) 5 MG tablet Take 1 tablet (5 mg) by mouth daily. 0 Active glimepiride (Amaryl) 4 MG tablet Take 2 tablets (8 mg) by mouth daily before breakfast. Active insulin degludec (Tresiba FlexTouch) 100 UNIT/ML injection Inject 55 Units under the skin every morning. 0 Active lisinopril-hyd roCHLOROthiazi de 20-25 MG tablet 1 tab(s) orally once a day 0 Active pravastatin (Pravachol) 40 MG tablet 1 tab(s) orally once a day - hold until you see Dr. Jansen Active Calcium Carb-Cholecalc iferol (GNP Calcium 600 +D3) 600-800 MG-UNIT tablet Take 1 tablet by mouth 2 (two) times a day. 180 tablet 4 1 Active Zinc 50 MG capsule Take 50 mg by mouth. Active Jentadueto 2.5-1000 MG tablet Take 2 tablets by mouth 1 (one) time each day. 3 Active traMADol (Ultram) 50 MG tablet Take 1 tablet (50 mg) by mouth every 6 hours as needed for severe pain. Active ascorbic acid (vitamin C) 1000 MG tablet Take 1 tablet (1,000 mg) by mouth daily. Active Xarelto 20 MG tablet Take 1 tablet (20 mg) by mouth 1 (one) time each day with dinner. Active furosemide (Lasix) 20 MG tablet 1 tablet Orally Once a day as needed 4 Active Farxiga 10 MG tablet Take 1 tablet (10 mg) by mouth Daily. 4 Active Multiple Vitamin (Multi Vitamin) tablet Take 1 tablet by mouth Daily. Active KLOR-CON 20 MEQ ER tablet TAKE 1 TABLET DAILY for 90 days Active lenalidomide (Revlimid) 10 MG capsule TAKE 1 CAPSULE BY MOUTH 1 TIME A DAY. DO NOT BREAK, OPEN, OR CHEW CAPSULE. TAKE WHOLE WITH WATER. 28 capsule 5 Active sAXagliptin-me tFORMIN ER (Kombiglyze XR) 2.5-1000 MG tablet sustained-rele ase 24 hour Take 1 tablet by mouth 2 times a day. Active Revlimid 10 MG capsule TAKE 1 CAPSULE BY MOUTH 1 TIME A DAY. DO NOT BREAK, OPEN, OR CHEW CAPSULE. TAKE WHOLE WITH WATER. 28 capsule 5 01/26/20 25 Discontinued Active Problems Problem Noted Date Diagnosed Date Male erectile disorder 01/31/2025 Hearing loss 01/31/2025 Calculus of gallbladder with out cholecystitis without obstruction 01/31/2025 Hyperglycemia due to diabetes mellitus 4 Class III obesity with body mass index (BMI) of 40.0 or higher 11/03/2023 Hx of autologous stem cell transplant 05/28/2021 Overview (05/28/2021): High-dose Melphalan conditioning 05/31/2019 T0=06/01/21 Repeat BMbx Aug 2019 demonstrated normocellular bone marrow with no evidence of plasma cell dyscrasia. Remains in CR1 on Revlimid maintenance since October 2019. Lytic bone lesions on xray 02/27/2021 Overview (05/28/2021): - Calcium and vitamin D supplementation - Completed 2 years of monthly Zometa. Can now transition to infusion every 3 months. Assessment & Plan (05/28/2021 12:50 PM EDT): - Will receive Zometa today, next dose due in Aug 2021. - Continue Ca+VitD supplementation. Assessment & Plan (02/27/2021 9:27 AM EDT): - Will receive Zometa today Type 2 diabetes mellitus wit h hyperglycemia, without long-term current use of insulin 02/27/2021 Overview (02/27/2021): ---- Continue insulin as directed by primary care physician. ---- Glimepiride, Tresiba and Janumet as directed Assessment & Plan (02/27/2021 9:28 AM EDT): - Encouraged improved glycemic control to prevent further complications and progression of neuropathy H/O deep venous thrombosis 02/27/2021 Overview (02/27/2021): Right lower extremity deep venous thrombosis March 08, 2019, persistent on duplex ultrasound June 14, 2019. ---- Treated with low molecular weight heparin for three months, then transitioned to Xarelto. Assessment & Plan (05/28/2021 9:15 AM EDT): - Continue anticoagulation therapy (Xarelto) while on treatment with Revlimid. Assessment & Plan (02/27/2021 9:29 AM EDT): - Continue anticoagulation therapy (Xarelto) while on treatment with Revlimid. Essential (primary) hypertension 02/27/2021 Assessment & Plan (02/27/2021 9:30 AM EDT): --- continue Lisinopril/hydrochlorothiazide Mixed hyperlipidemia 02/27/2021 Assessment & Plan (02/27/2021 9:30 AM EDT): --- Continue Pravastatin Peripheral neuropathy 02/27/2021 Overview (02/27/2021): --- Treatment related with likely component of uncontrolled diabetes. --- controlled with Lyrica. --- Previously seen by Dr. Cecelia. No longer following. Discontinued per pt. Assessment & Plan (05/28/2021 9:14 AM EDT): - Continue Lyrica and tramadol. Assessment & Plan (02/27/2021 9:31 AM EDT): - Continue Lyrica and tramadol. 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 Continues on Revlimid maintenance therapy and Zometa. Mr. Dolan achieved CR after transplantation and educated regarding expectations after transplantation and that prior damage precipitated by myelomatous lesions may still continue to cause pain despite disease being well-controlled. No evidence of disease relapse noted on recent labs. XR right humerus negative for new lytic lesions. Bone survey Jun 2020 stable without new or progressing lytic lesions. He remains on Revlimid maintenance therapy since October 2019. - Continue Revlimid as long as disease controlled and pt tolerates - Zometa infusion today. Will transition monthly infusions to every 3 months, next dose in August 2021. Assessment & Plan (05/28/2021 12:57 PM EDT): CIBMTR reporting guidelines: cause of (Non-applicable) subsequent HCT information (Non-applicable) liver prophylaxis therapy (None) Veno-occlusive disease (VOD)/sinusoidal obstruction syndrome (SOS) & date (none) Any new malignancy (None) relapse/progression post HCT, date, intervention given (none) therapy given for reason other than relapse,/persistent/ progressive disease (Revlimid Maintenance October 2019-- present) current disease status: Previously in CR1 post auto-HSCT. [place] FLC mildly elevated. Current disease is stable without evidence of progression. date assessed: 05/28/21 9:24 AM Mr. Dolan remains in CR1 on Revlimid maintenance therapy. Unfortunately, despite good disease control, he continues to experience issues with uncontrolled neuropathy of lower extremities, mainly his left leg. It is not likely that Revlimid or myeloma disease process is responsible for the progression of neuropathy. Would think this is likely due to chronic T2DM. Encouraged follow up with PCP. - Continue Revlimid at current dose with Xarelto for DVT ppx - RTC in 3 months for follow-up with Zometa and repeat CBC, CMP, MM labs - Bone survey due Jun 2021 Assessment & Plan (02/27/2021 9:00 AM EDT): - RTC in 1 month for Zometa and CMP - RTC in 3 months for follow-up with repeat CBC, CMP, MM labs - Bone survey due Jun 2021 Arthropathy of lumbar facet joint 06/30/2020 Acquired spondylolisthesis 06/30/2020 Vertebral fracture, pathological 01/06/2020 Overview (02/27/2021): Pathological fracture, other site, initial encounter for fracture Muscle weakness of extremity 12/10/2019 Vertebral compression fracture 11/02/2019 Chronic pain syndrome 10/07/2019 Overview (02/27/2021): Chronic residual 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 --- On Lyrica and tramadol. Encouraged anti-inflammatory with Tylenol extra strength. --- s/p vertebroplasty with little improvement in symptoms. --- Long-term narcotic therapy is not indicated for the above as his myeloma is in remission and no active cancer is identified. 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 01/31/2025 Acute kidney injury 01/26/2024 01/26/20 24 Acute respiratory failure with hypoxia 01/26/2024 01/26/2024 Acute saddle pulmonary embolism 01/26/2024 01/26/2024 CAP (community acquired pneumonia) 01/26/2024 01/26/2024 Cellulitis 01/26/2024 01/26/2024 Elevated troponin 01/26/2024 01/26/2024 Pneumonia due to COVID-19 virus 01/26/2024 01/26/2024 Right ventricular dilation 01/26/2024 0 01/26/2024 Non compliance w medication regimen 01/26/2024 01/26/2024 Hypokalemia 01/26/2024 01/26/2024 Encounters Date Type Department Care Team Description 01/31/2025 11:00 AM EDT - 01/31/2025 11:59 PM EDT Hospital Encounter [facility] Infusion Clinic [address] [place] [address] Hx of autologous stem cell transplant (CMS/HCC) (Primary Dx); Multiple myeloma in remission (CMS/HCC); Lytic bone lesions on xray Discharge Disposition: Home or Self Care 01/31/2025 9:30 AM EDT Office Visit [facility] [address] [place] [phone] Yolande Mccullough APRN Multiple myeloma in remission (CMS/HCC) (Primary Dx); Long-term current use of immunomodulator; Hx of autologous stem cell transplant (CMS/HCC); 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; Lytic bone lesions on xray 01/31/2025 9:00 AM EDT Clinical Support [facility] [address] [place] [address] 01/31/2025 Travel 01/25/2025 Refill [facility] [address] [place] [phone] Facundo Jansen MD 12/27/2024 Refill [facility] 750 [facility] [place] [place] [phone] Facundo Jansen MD 12/27/2024 Refill [facility] 750 [facility], [address] [place] [phone] Facundo Jansen MD 11/29/2024 Refill [facility] 750 [facility], [address] [place] [phone] Facundo Jansen MD from Last 3 Months Immunizations Immunization Administration Dates Next Due DTaP / Hep B / IPV 07/10/2020,03/06/2020, 020 Hib (PRP-T) 07/10/2020,03/06/2020,12/30/2019 Influenza, injectable, quadrivalent 06/01/2020 Influenza, injectable, quadr ivalent, preservative free 05/12/2023,06/07/2022,06/16/2021,07/28,05/13/2018,05/14/2017 Influenza, seasonal, injectable 05/30/2010 Influenza, seasonal, injecta ble, preservative free 05/23/2024 Influenza, seasonal, intrade rmal, preservative free 05/13/2016,06/23/2014,06/12/2013,04/28 [employer] COVID-19 Vac cine (Purple Cap) 12+ 11/01/2020,10/02/2020 Pneumococcal 20-lulu Conj Vaccine 05/23/2024 Pneumococcal Conjugate PCV 13 07/10/2020, 020,12/30/2019 Pneumococcal Polysaccharide PPV23 09/04/2020 Tdap 04/07/2023,02/20/2018 Zoster, Recombinant 12/04/2020 Family History Medical History Relation Name Comments Diabetes Mother Diabetes Other Relation Name Status Comments Mother Other Social History Tobacco Use Types Packs/Day Years [...] on file Sexual Orientation Not on file Last Filed Vital Signs Vital Sign Reading [...] Mass Index 43.17 01/31/2025 11:18 AM EDT Plan of Treatment Upcoming Encounters Date Type Department Care Team ([facility] st Contact Info) Description 05/06/2025 11:00 AM EDT Clinical Support [facility] [address] [phone] 05/06/2025 11:30 AM EDT Office Visit [facility] [address] [phone] Yolande Mccullough, ACOUSTIC SENSOR OPERATOR [address] [facility] [address] [place] [phone] Health Maintenance Due Date Last Done Comments [facility]-HIV Screening 1963 [facility]-Hepatitis C Screening 1965 [facility]-/Child/Adol SDOH Screenings 1963 Diabetes: Dental Exam 1973 [facility]- SDOH Screenings 1981 [facility]-Adult SDOH Screenings 1981 CT Colonography 02/23/2008 Colonoscopy 02/23/2008 FIT-DNA 02/23/2008 FIT 02/23/2008 FOBT 02/23/2008 Sigmoidoscopy 02/23/2008 [facility]-Colorectal Cancer Screening 02/23/2008 [facility]-Diabetes: Hemoglobin A1C 07/02/2020 01/03/2020, 06/02/2019 [facility]-IPV Vaccines (3 of 3 - Adult catch-up series) 01/07/2021 07/10/2020, 03/06/2020, 12/30/2019 [facility]-Zoster Vaccines (2 of 2) 01/29/2021 12/04/2020 [facility]-RSV Vaccine: 60+ Years or (1 - Risk 60-74 years 1-dose series) 2023 [id number]-75 Vaccine (7 - Pfizer risk 2023- season) 2024 05/23/2024, 08/09/2022, 01/10/2022, Additional history exists [facility]-Depression Screening 04/23/2025 04/23/2024 [facility]-DTaP,Tdap,and Td Vaccines (6 - Td or Tdap) 04/07/2033 04/07/2023, 07/10/2020, 03/06/2020, Additional history exists [facility]-HIB Vaccines Aged Out 07/10/2020, , 12/30/2019 No longer eligible based on patient's age to complete this topic [facility]-Influenza Vaccine Completed 05/23/2024 , 05/12/2023, 06/07/2022, Additional history exists [facility]-Pneumococcal Vaccine: 50+ Years Completed 05/23/2024, 09/04/2020, 07/10/2020, Additional history exists [facility]-Obesity Intervention Completed 025, 10/29/2024, 08/05/2024, Additional history exists HPV Vaccines Aged Out No longer eligi ble based on patient's age to complete this topic [facility]-Hepatitis A Vaccines Aged Out No longer eligible based on patient's age to complete this topic [facility]-Rotavirus Vaccines Aged Out No lo nger eligible based on patient's age to complete this topic Procedures Procedure Name Priority Date/Time Associated Diagnosis Comments ASHA SERUM, PATHOLOGIST INTERPRETATION Routine 01/31/2025 8:55 AM EDT Multiple myeloma in remission (CMS/HCC) PROTEIN ELECTROPHORESIS, PATHOLOGIST INTERPRETATION Routine 01/31/2025 8:55 AM EDT Multiple myeloma in remission (CMS/HCC) QIG, SERUM Routine 01/31/2025 8:55 AM EDT Multiple myeloma in remission (CMS/HCC) IMMUNOFIXATION ELECTROPHORESIS Routine 01/31/2025 8:55 AM EDT Multiple myeloma in remission (CMS/HCC) KAPPA LAMBDA QUANTITATIVE FREE LIGHT CHAINS WITH RATIO Routine 01/31/2025 8:55 AM EDT Multiple myeloma in remission (CMS/HCC) TOTAL PROTEIN, SERUM Routine 01/31/2025 8:55 AM [...] AM EDT Multiple myeloma in remission (CMS/HCC) HEMOGLOBIN A1C Routine 01/03/2020 12:12 PM EDT from Last 3 Months or Most Recently Relevant to Health Maintenance Results * (ABNORMAL) QIG, Serum (01/31/2025 8:55 AM EDT) IGA 330 75 - 400 mg/dL 01/31/2025 10:36 AM EDT [facility] IGG 1,594(H) 720 - 1,589 mg/dL 01/31/2025 10:36 AM EDT [facility] IGM 23(L) 35 - 225 mg/dL 01/31/2025 10:36 AM EDT [facility] Blood Venous blood specimen / Unknown Venipuncture / Unknown 01/31/2025 8:55 AM EDT 01/31/2025 9:24 AM EDT Yolande Mccullough APRN LAB BLOOD ORDERABLES Nadia lion Result [facility] [address] [place] [address] * (ABNORMAL) [place] Lambda Quant Free Light Chains w/Ratio (01/31/2025 8:55 AM EDT) [place] Lambda Free Light Chain Ratio 1.55 0.26 - 1.65 Ratio 02/02/2025 1:09 AM EDT [facility] [place] Quant Free Light Chains 56.76(H) 3.30 - 19.40 mg/L 02/02/2025 1:09 AM EDT [facility] Lambda Quant Free Light Chains 36.55(H) 5.71 - 26.30 mg/L 02/02/2025 1:09 AM EDT [facility] Blood Venous blood specimen / Unknown Venipuncture / Unknown 01/31/2025 8:55 AM EDT 01/31/2025 9:24 AM EDT Narrative [facility] - 02/02/2025 1:09 AM EDT [...] with the testing laboratory. Test performed at [facility],Special Chemistry Laboratory. Yolande Mccullough APRN LAB BLOOD ORDERABLES Nadia l Result Performing Organization Address [facility] Co de Phone Number [facility] [address] [place] [address] * Total Protein, Serum (01/31/2025 8:55 AM EDT) Pathologist [facility] Total Protein 7.2 6.2 - 7.7 g/dL 01/31/2025 10:36 AM EDT [facility] Blood Venous blood specimen / Unknown Venipuncture / Unknown 01/31/2025 8:55 AM EDT 01/31/2025 9:24 AM EDT [email or web address] LAB BLOOD ORDERABLES Nadia l Result Performing Organization Address [facility] de Phone Number [facility] [address] [place] [address] * Protein Electrophoresis, Serum (01/31/2025 8:55 AM EDT) Albumin Electrophoresis, Serum 3.9 3.6 - 4.7 g/dL 02/01/2025 2:03 AM EDT [facility] [place] [address] Globulin Electrophoresis, Serum 0.2 0.2 - 0.4 g/dL 02/01/2025 2:03 AM EDT [facility] [place] 2 Globulin Electrophoresis, Serum 0.8 0.5 - 0.9 g/dL 02/01/2025 2:03 AM EDT [facility] Beta 1 Globulin Electrophoresis, Serum 0.5 0.3 - 0.5 g/dL 02/01/2025 2:03 AM EDT [facility] Beta 2 Globulin Electrophoresis, Serum 0.4 0.2 - 0.5 g/dL 02/01/2025 2:03 AM EDT [facility] Gamma Globulin Electrophoresis, Serum 1.5 0.6 - 1.5 g/dL 02/01/2025 2:03 AM EDT [facility] Interpretation, Serum Protein Electrophoresis Pathology report to follow. 02/01/2025 2:03 AM EDT [facility] Blood Venous blood specimen / Unknown Venipuncture / Unknown 01/31/2025 8:55 AM EDT 01/31/2025 9:24 AM EDT Yolande Calvinr ACOUSTIC SENSOR OPERATOR LAB BLOOD ORDERABLES Nadia l Result Performing Organization Address [facility] Co de Phone Number [facility] [address] [place] [address] * Immunofixation Electrophoresis (01/31/2025 8:55 AM EDT) Immunofixation Interpretation Pathology report to follow. 02/02/2025 3:34 PM EDT [facility] Blood Venous blood specimen / Unknown Venipuncture / Unknown 01/31/2025 8:55 AM EDT 01/31/2025 9:24 AM EDT Yolande Georgekristina [facility] LAB BLOOD ORDERABLES Nadia l Result Performing Organization Address [facility] Co de Phone Number [facility] [address] [place] [address] * ASHA serum, pathologist interpretation (01/31/2025 8:55 AM EDT) Clinical Diagnosis, ASHA Serum ISS stage I kappa light chain multiple myeloma 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 02/03/2025 11:02 AM EDT [facility] Interpretation , ASHA Serum There [...] diagnosis or interpretation. 02/03/2025 11:02 AM EDT [facility] Pathologist Signature, ASHA Serum Reviewed by: Castillo Vail MD 02/03/2025 11:02 AM EDT [facility] CP ASR DISCLAIMER Yes 02/03/2025 11:02 AM EDT [facility] Blood Venous blood specimen / Unknown Venipuncture / Unknown 01/31/2025 8:55 AM EDT 01/31/2025 9:24 AM EDT Yolande Mccullough APRN LAB PATHOLOGY ORDERABLES Final Result Performing Organization Address City/[facility]/ZIP Co de Phone Number [facility] [address] [place] [address] * Protein electrophoresis serum, pathologist interpretation (01/31/2025 8:55 AM EDT) Pathologist [facility] Clinical Diagnosis, SPEP Multiple myeloma 02/01/2025 9:59 AM EDT [facility] Interpretation , SPEP The total protein and serum protein electrophoretic fractions are within normal limits. A resident was involved in the service. I attest I examined the relevant preparations for the specimens and confirmed the diagnosis or interpretation. 02/01/2025 9:59 AM EDT [facility] Pathologist Signature, SPEP Reviewed by: Herrera Farfan MD 02/01/2025 9:59 AM EDT [facility] LAB CP ASR DISCLAIMER Yes 02/01/2025 9:59 AM EDT [facility] Blood Venous blood specimen / Unknown Venipuncture / Unknown 01/31/2025 8:55 AM EDT 01/31/2025 9:24 AM EDT Yolande Mccullough APRN LAB PATHOLOGY ORDERABLES Final Result [facility] [address] [place] [address] * (ABNORMAL) CBC and Differential (01/31/2025 8:55 AM EDT) WBC Count 5.77 3.70 - 10.30 10*3/uL LAB HEMATOLOGY METHOD 01/31/2025 9:22 AM EDT [facility] RBC Count 5.24 4.60 - 6.10 10*6/uL LAB HEMATOLOGY METHOD 01/31/2025 9:22 AM EDT [facility] HGB 15.5 13.7 - 17.5 g/dL LAB HEMATOLOGY METHOD 01/31/2025 9:22 AM EDT [facility] HCT 45.6 40.0 - 51.0 % LAB HEMATOLOGY METHOD 01/31/2025 9:22 AM EDT [facility] Platelet Count 176 155 - 369 10*3/uL LAB HEMATOLOGY METHOD 01/31/2025 9:22 AM EDT [facility] MCV 87 79 - 98 fL LAB HEMATOLOGY METHOD 01/31/2025 9:22 AM EDT [facility] MCH 29.6 26.0 - 32.0 pg LAB HEMATOLOGY METHOD 01/31/2025 9:22 AM EDT [facility] MCHC 34.0 30.7 - 35.5 g/dL LAB HEMATOLOGY METHOD 01/31/2025 9:22 AM EDT [facility] RDW 15.9(H) 11.5 - 14.5 % LAB HEMATOLOGY METHOD 01/31/2025 9:22 AM EDT [facility] MPV 10.6 8.8 - 12.5 fL LAB HEMATOLOGY METHOD 01/31/2025 9:22 AM EDT [facility] nRBC 0.0 <=0.0 per 100 WBCs LAB HEMATOLOGY METHOD 01/31/2025 9:22 AM EDT [facility] Differential Type Automated LAB HEMATOLOGY METHOD 01/31/2025 9:22 AM EDT [facility] Neutrophils % 63 % LAB HEMATOLOGY METHOD 01/31/2025 9:22 AM EDT [facility] Lymphocytes % 15 % LAB HEMATOLOGY METHOD 01/31/2025 9:22 AM EDT [facility] Monocytes % 10 % LAB HEMATOLOGY METHOD 01/31/2025 9:22 AM EDT [facility] Eosinophils % 8 % LAB HEMATOLOGY METHOD 01/31/2025 9:22 AM EDT [facility] Basophils % 3 % LAB HEMATOLOGY METHOD 01/31/2025 9:22 AM EDT [facility] Immature Granulocytes % 1 % LAB HEMATOLOGY METHOD 01/31/2025 9:22 AM EDT [facility] Neutrophils Absolute 3.67 1.60 - 6.10 10*3/uL LAB HEMATOLOGY METHOD 01/31/2025 9:22 AM EDT [facility] Lymphocytes Absolute 0.85(L) 1.20 - 3.90 10*3/uL LAB HEMATOLOGY METHOD 01/31/2025 9:22 AM EDT [facility] Monocytes Absolute 0.59 0.30 - 0.90 10*3/uL LAB HEMATOLOGY METHOD 01/31/2025 9:22 AM EDT [facility] Eosinophils Absolute 0.43 0.00 - 0.50 10*3/uL LAB HEMATOLOGY METHOD 01/31/2025 9:22 AM EDT [facility] Basophils Absolute 0.15(H) 0.00 - 0.10 10*3/uL LAB HEMATOLOGY METHOD 01/31/2025 9:22 AM EDT [facility] Immature Granulocytes Absolute 0.08(H) 0.00 - 0.06 10*3/uL LAB HEMATOLOGY METHOD 01/31/2025 9:22 AM EDT [facility] Blood Venous blood specimen / Unknown Venipuncture / Unknown 01/31/2025 8:55 AM EDT 01/31/2025 9:20 AM EDT Narrative [facility] - 01/31/2025 9:22 AM EDT Therapeutic decision making should be based on absolute values, rather than percentages. us Yolande Mccullough APRN LAB BLOOD ORDERABLES Nadia lion Result [facility] [address] [place] [id number] * (ABNORMAL) Comprehensive Metabolic Panel, Plasma (01/31/2025 8:55 AM EDT) Glucose, Plasma 169(H) 74 - 99 mg/dL 01/31/2025 9:56 AM EDT [facility] BUN, Plasma 14 8 - 23 mg/dL 01/31/2025 9:56 AM EDT [facility] Creatinine, Plasma 0.87 0.70 - 1.20 mg/dL 01/31/2025 9:56 AM EDT [facility] BUN/Creatinine Ratio 16 01/31/2025 9:56 AM EDT [facility] Sodium, Plasma 141 136 - 145 mmol/L 01/31/2025 9:56 AM EDT [facility] Potassium, Plasma 3.4(L) 3.6 - 4.9 mmol/L 01/31/2025 9:56 AM EDT [facility] Chloride, Plasma 107 97 - 107 mmol/L 01/31/2025 9:56 AM EDT [facility] CO2, Plasma 22 22 - 29 mmol/L 01/31/2025 9:56 AM EDT [facility] Anion Gap 12 6 - 16 mmol/L 01/31/2025 9:56 AM EDT [facility] Total Calcium, Plasma 8.7(L) 8.9 - 10.2 mg/dL 01/31/2025 9:56 AM EDT [facility] Total Protein 7.2 6.3 - 7.9 g/dL 01/31/2025 9:56 AM EDT [facility] Albumin, Plasma 4.0 3.5 - 5.2 g/dL 01/31/2025 9:56 AM EDT [facility] AST, Plasma 24 10 - 50 U/L 01/31/2025 9:56 AM EDT [facility] ALT, Plasma 28 10 - 50 U/L 01/31/2025 9:56 AM EDT [facility] Alkaline Phosphatase, Plasma 54 40 - 115 U/L 01/31/2025 9:56 AM EDT [facility] Total Bilirubin, Plasma 0.4 0.2 - 1.1 mg/dL 01/31/2025 9:56 AM EDT [facility] eGFRcr 98.2 mL/min/1.7 3m*2 01/31/2025 9:56 AM EDT [facility] Comment:Reported eGFRcr in m L/min/1.73m2 is based the CKD-EPI 2020 equation that does not use a race coefficient. Blood Venous blood specimen / Unknown Venipuncture / Unknown 01/31/2025 8:55 AM EDT 01/31/2025 9:24 AM EDT us Yolande Mccullough APRN LAB BLOOD ORDERABLES Nadia lion Result [facility] [address] [place] [address] * (ABNORMAL) Hemoglobin A1c (01/03/2020 12:12 PM EDT) Hemoglobin A1c 7.3(H) 4.7 - 6.0 % [facility] Comment: Glycohemoglobin Reference Range, 0 years and up: 4.7 to 6.0% . HA1C Interpretive Data: Diagnosis of Diabetes: Diabetic > or = 6.5% Pre-diabetic 5.7 to 6.4% Non-diabetic < or = 5.6% . Glycemic Targets for Type I and Type II Diabetics: Non- Adults <7.0% Adults <6.0% Children and Adolescents <7.5% . Source: [place] [employer]. Standards of medical care in diabetes, 2017. Diabetes Care.2017:40 (suppl 1):S1-S135. . HbA1c assay performed by an ion-exchange chromatography method that is certified traceable to the DCCT. 01/03/2020 12:1 2 PM EDT 01/03/2020 12:55 PM EDT Nina Cristina APRN, OMAR LAB BLOOD ORDERABLES Final Result [facility] from Last 3 Months or Most Recently Relevant to Health Maintenance [place] [address] [employer] Care Teams Commercial Lending Assistant Relationship Specialty Start Date End Date Bola Archuleta MD [address] [address] PCP - General 01/05/21
--- OUTSIDE RECORDS SUMMARY | 2025-02-06 09:27 | XMS_ITS ---
Author Organization [facility] Address [address] [place] [address] Care Team Providers Care Hatchery Laborer Name Role Phone Bola Archuleta MD Primary Care Provider + [phone] Active Problems Problem Noted Date Diagnosed Date Male erectile disorder 01/31/2025 Hearing loss 01/31/2025 Calculus of gallbladder with out cholecystitis without obstruction 01/31/2025 Hyperglycemia due to diabetes mellitus Class III obesity with body mass index [...] with Lyrica. --- Previously seen by Dr. Rai. No longer following. Discontinued per pt. Assessment & Plan (05/28/2021 9:14 AM EDT): - Continue Lyrica and tramadol. Assessment & Plan (02/27/2021 9:31 AM EDT): - Continue Lyrica and tramadol. 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 Continues on Revlimid maintenance therapy and Zometa. Mr. Pathak achieved CR after transplantation and educated regarding [...] disease status: Previously in CR1 post auto-HSCT. Kendall FLC mildly elevated. Current disease is stable without evidence of progression. date assessed: 05/28/21 9:24 AM Mr. Pathak remains in CR1 on Revlimid maintenance therapy. [...] pain, thoracic 10/01/2019 Overview (02/27/2021): Dorsalgia, unspecified Current Treatment and Therapy Plans (HEM/ONC) ZOLEDRONIC ACID* Plan Start Date:02/02/2021 Plan Provider:Facundo Jansen MD Linked Problems [facility] in [facility] ([facility]) Treatment Medications No medications scheduled. Other Current Plans (HEM) Outpatient Electrolyte Replacement Protocol* Plan Start Date:01/31/2025 Plan Provider:Facundo Jansen MD Linked Problems Hx of autologous stem cell t ransplant ([facility]) Treatment Medications No medications scheduled. Past Treatment and Therapy Plans Resolved Problems Problem Noted Date Diagnosed Date [...]
--- OUTSIDE RECORDS SUMMARY | 2025-02-06 09:27 | XMS_ITS | Encounter Summary ---
Author Organization [facility] Address [address] [place] [address] Care Team Providers Care Sports Nutritionist Name Role Phone Bola Archuleta MD Primary Care Provider + [phone] Reason for Visit * Reason Comments Med Refill Encounter Details Date Type Department Care Team ([facility] Contact Info) Description 12/27/2024 Refill P[facility] CC Hematology/BMT and Cellular Therapy Program [address] [phone] Facundo Jansen MD 800 [facility] [address] [place] [phone] Social History Tobacco Use Types Packs/Day Years [...] Upcoming Encounters Date Type Department Care Team ([facility] Contact Info) Description 05/06/2025 11:00 AM EDT Clinical Support PAV CC Hematology/BMT and Cellular Therapy Program 750 [facility], [address] [place] [phone] 05/06/2025 11:30 AM EDT Office Visit PAV CC Hematology/BMT and Cellular Therapy Program 750 [facility], [address] [place] [address] Yolande Mccullough, WIND OPERATIONS MANAGER 800 [facility] [address] [place] [address] documented as of this encounter Visit Diagnoses Not on filedocumented in this encounter Additional Health Concerns Assessment Noted Time A fall risk assessment has been complete d for the patient 10/29/2024 10:33 AM EST A Body Mass Index follow-up plan has been documented for the patient 10/29/2024 11:09 AM EST documented as of this encounter Care Teams Sports Nutritionist Relationship Specialty Start Date End Date Bola Archuleta MD [address] [facility] [address] [address] PCP - General 01/05/21 documented as of this encounter
--- OUTSIDE RECORDS SUMMARY | 2025-02-06 09:27 | XMS_ITS | Patient Health Record ---
Author Organization [facility] Address [address] [facility] [address] [place] [id number] Care Team Providers Care Lab Clerk Name Role Phone Bola Archuleta Primary Care Provider [phone] Allergies No Known Allergies Results Component Value [...] 165 Performing Lab: Notes/Report: Test performed by [facility] [address] [facility] , [address], [place] [address] Everette Gray MD, Cigar Brander CLIA: [id number] Sodium 139 135-145 mmol/L Potassium 4.1 3.5-5.3 [...] Interpretation:23.4 Performing Lab: Notes/Report: Test performed by [facility] [address] [place] [address] , [address], [place] [address] Everette Gray MD, Cigar Brander CLIA: [id number] Vitamin D 25-Hydroxy 23.4 30.0-100.0 ng/mL Interpretation of Vitamin D 25 OH: < 20 ng/mL - Deficiency 20 - 29 ng/mL - Insufficiency 30 - 100 ng/mL - Sufficiency > 100 ng/mL - Super-therapeutic- toxicity may occur above this level. Clinical correlation required. Glucose (In-House) Reviewed date:10/11/2024 05:38:36 PM Interpretation:167 [...] - 6.5 % P-Comprehensive Metabolic Pa nate ([facility]) Reviewed date:10/11/2024 05:38:36 PM Interpretation:gluc 155 Performing Lab: Notes/Report: Test performed by [facility] [address] [place], [place] [address] [address] , [address], [place] [address] Everette Gray MD, Cigar Brander CLIA: [id number] Sodium 142 135-145 mmol/L Potassium 3.6 3.5-5.3 [...] Normal Performing Lab: Notes/Report: Test performed by [facility], [address] , [address], [place] [address] Everette Gray MD, Cigar Brander CLIA: [id number] Cholesterol 118 <200 mg/dL Triglycerides 103 <150 [...] Normal Performing Lab: Notes/Report: Test performed by [facility] [address] [place], [place] [address] [address] [place] , [place] [address] Everette Gray MD, Cigar Brander CLIA: [id number] PSA 0.77 <4.00 ng/mL Please note this is an ultrasensitive PSA assay with a lower limit of detection of 0.014 ng/mL. This test is performed by the Angelo ECLIA methodology. Values obtained with different assay methods or kits cannot be directly compared. P-TSH reflex to FT4 Reviewed date:10/11/2024 05:38:36 PM Interpretation: Normal Performing Lab: Notes/Report: [facility] [address] , [address], [place] [address] Everette Gray MD, Cigar Brander CLIA: [id number] TSH reflex to FT4 1.11 0.43-5.25 mU/L P-Microalbumin/Creatinine, R andom Urine Sample Reviewed date:10/11/2024 05:38:36 PM Interpretation: Normal Performing Lab: Notes/Report: Test performed by [facility] [address] [place] [address] , [address], [place] [address] Everette Gray MD, Cigar Brander CLIA: [id number] Albumin/Creatinine Ratio, Urine 16 0-30 ug/m g Microalbumin, Urine, Random 2.5 Creatinine, Urine 159.2 P-Vitamin D 25-Hydroxy Reviewed date:10/11/2024 05:38:36 PM Interpretation:25.1 Performing Lab: Notes/Report: Test performed by [facility] [address] [place] [address] , [address], [place] [address] Everette Gray MD, Cigar Brander CLIA: [id number] Vitamin D 25-Hydroxy 25.1 30.0-100.0 ng/mL Interpretation of Vitamin D 25 OH: < 20 ng/mL - Deficiency 20 - 29 ng/mL - Insufficiency 30 - 100 ng/mL - Sufficiency > 100 ng/mL - Super-therapeutic- toxicity may occur above this level. Clinical correlation required. Reason For Referral Diagnosis 1 Hearing loss, unspec ified hearing loss type, unspecified laterality (H91.90) Referral Organization [facility] Referring Provider First Name Bola Referring Provider Last Name Geremias Referring Provider Speciality Family [facility] ctice Referred Provider Tana Madden Referred Provider Specialty Audiologists General Notes Ama Rodriguez 5 1:31:34 PM > faxed to Tana Madden's office Referral Priority Routine Medications Medication SIG (Take, Route, Frequency, Duration) Notes Start Date End Date Status Klor-Con M20 20 MEQ TAKE 1 TABLET DAILY for 90 Active traMADol HCl 50 MG 1-2 tab(s) orally ev yaniv 6 hours as needed 11/12/2018 Active Vitamin C 1000 MG 1 tablet Orally Once a day for 30 day(s) Active Pravastatin Sodium 40 MG TAKE 1 TABLET O NCE DAILY for 15 day(s) Active Furosemide 20 MG 1 tablet Orally Once a day as needed 04/09/2024 Active Vitamin D3 125 MCG (5000 UT) 1 capsule Orally once a day Active BD Pen Needle Short U/F 31 GUAGE X 5/16 INCH 1 PEN NEEDLE ONCE A DAY 02/04/2019 Active Glimepiride 4 MG TAKE 2 TABLETS ONCE DAILY Active Zinc 50 MG 1 tab(s) orally twice daily Active Multivitamin - 1 tab(s) orally once a day Active Xarelto 20 MG 1 tablet with food O rally Once a day for 15 day(s) Active Revlimid 10 MG 1 cap(s) orally once a day Active Lisinopril-hydroCHLOROthi azide 20-25 MG TAKE 1 TABLET DAILY Active Farxiga 10 MG TAKE 1 TABLET ONCE DAILY Active Tresiba FlexTouch 100 UNIT/ML 55 units subcutaneously once a day Active Sildenafil Citrate 20 MG 1 to 5 tab(s) o rally once a day as needed 10/11/2021 Active amLODIPine Besylate 5 MG TAKE 1 TABLET DAILY Active sAXagliptin-metFORMIN ER 2.5-1000 MG 1 tab(s) orally Two times a day for 90 days 01/04/2025 Active Immunizations Vaccine Route Administration Date Status Comme nts xFluzone Intradermal (18-64yrs)-trivalent ID Intradermal 04/28/2012 Administered xFluzone Intradermal (18-64yrs)-trivalent ID Intradermal 06/12/2013 Administered xFluzone Intradermal (18-64yrs)-trivalent ID Intradermal 06/23/2014 Administered xFluzone (6mos and older)-trivalent IM Intramuscular 05/30/2010 Administered Tetanus Tdap-Adacel (over 7yrs) IM Intramuscular 02/20/2018 Administered Tetanus Tdap-Adacel (over 7yrs) Unknown 04/07/2023 Administered Shingrix Unknown 12/04/2020 Administered Prevnar (PCV13) Unknown 12/30/2019 Administered Prevnar (PCV13) Unknown 03/06/2020 Administered Prevnar (PCV13) Unknown 07/10/2020 Administered PNEUMOVAX 23 VACCINE Unknown 09/04/2020 Administered pediarix Unknown 12/30/2019 Administered pediarix Unknown 03/06/2020 Administered pediarix Unknown 07/10/2020 Administered H1N1 flu vaccine IM Intramuscular 07/12/2009 Administered Fluzone Quad (6months&older) IM Intramuscular 06/01/2020 Administered Fluzone PF Quad (6-35 months) Unknown 05/14/2017 Administered Fluzone PF Quad (6-35 months) Unknown 05/13/2018 Administered Fluzone PF Quad (6-35 months) Unknown 07/28/2019 Administered Fluzone PF Quad (6-35 months) Unknown 06/16/2021 Administered Fluzone PF Quad (6-35 months) Unknown 06/07/2022 Administered Fluzone PF Quad (6-35 months) Unknown 05/12/2023 Administered Fluzone Intradermal Quad private(18-64yrs) ID Intradermal 05/13/2016 Administered COVID 19 Pfizer Unknown 10/02/2020 Administered COVID 19 Pfizer Unknown 11/01/2020 Administered COVID 19 Pfizer Unknown 05/28/2021 Administered COVID 19 Moderna Unknown 01/10/2022 Administered Problems Problem Type SNOMED Code ICD Code Onset Dates Problem Status W/U Status Risk Notes Problem 611434624 Type 2 diabetes mellitus without complications (E11.9) Active confirmed Problem 57142191 Essential (primary) hypertension (I10) Active confirmed Problem 35266730 Vitamin D deficiency (E55.9) Active confirmed Problem 26239746 Essential hypertension (I10) Active confirmed Problem 00306519 Multiple myeloma in remission (C90.01) Active confirmed Problem 26946814 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) Active confirmed Problem 966407271 Mixed hyperlipidemia (E78.2) Active confirmed Problem 227339695 Chronic pain syndrome (G89.4) Active confirmed Problem 50357706 Calculus of gallbladder without cholecystitis without obstruction (K80.20) Active confirmed Problem 415679265 Male erectile disorder (N52.9) Active confirmed Problem 695059868 adjunct faculty 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 medical 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 t use of insulin (Z79.4) Active confirmed Problem 01353501 Other chronic pa in (G89.29) Active confirmed Problem 56993979 Type 2 diabetes mellitus without complication (E11.9) Active confirmed Problem 017973736 Erectile dysfunction, unspecified erectile dysfunction type (N52.9) Active confirmed Problem 02378262 Hearing loss, unspecified hearing loss type, unspecified laterality (H91.90) Active confirmed Problem 592869034613667 History of multiple myeloma (Z85.79) Active confirmed Problem 399434552 Type 2 diabetes mellitus without complication, unspecified whether usp insulin use (E11.9) Active confirmed Problem 945597069 Plasmacytoma, 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 Vital Signs Heart Rate 81 /min 10/08/2024 Blood pressure diastolic 80 mm Hg 10/08/2024 Height 72 in 10/08/2024 Blood pressure systolic 130 mm Hg 10/08/2024 Weight 281 lbs 10/08/2024 BMI 38.11 kg/m2 10/08/2024 Encounters Encounter Location Date Provider Diagnosis [facility] [address] [facility] [address] [place], [place] [id number] 04/09/2024 Bola Havelock Type 2 diabetes nancy itus without complication E11.9 ; Essential hypertension I10 ; Mixed hyperlipidemia E78.2 ; Hypokalemia E87.6 and Vitamin D deficiency E55.9 [facility] [address] [facility] [address] [place], [place] [id number] 10/08/2024 Bola Havelock Type 2 diabetes nancy itus without complication E11.9 ; Mixed hyperlipidemia E78.2 ; Essential hypertension I10 ; Vitamin D deficiency E55.9 ; Prostate cancer screening Z12.5 and Plasmacytoma, 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 [facility] [address] [facility] [address] [place], [place] [id number] 03/27/2024 Bola Havelock Type 2 diabetes nancy itus without complication E11.9 [facility] [address] [facility] [address] [place], [place] [id number] 04/05/2024 Bola Havelock Type 2 diabetes nancy itus without complication E11.9 [facility] [address] [facility] [address] [place], [place] [id number] 04/05/2024 Bola Havelock [facility] [address] [facility] [address] [place], [place] [id number] 04/12/2024 Bola Havelock [facility] [address] [facility] [address] [place], [place] [id number] 04/12/2024 Bola Havelock Type 2 diabetes nancy itus without complication E11.9 [facility] [address] [place], [place] [id number] 06/09/2024 Bola Havelock Type 2 diabetes nancy itus without complication E11.9 [facility] [address] [facility] [address] [place], [place] [id number] 09/09/2024 Bola Havelock [facility] [address] [place], [place] [id number] 09/28/2024 Bola Havelock Hearing loss, unspec ified hearing loss type, unspecified laterality H91.90 [facility] [address] [place], [place] [id number] 10/04/2024 Bola Havelock [facility] [address] [place], [place] [id number] 10/11/2024 Bola Havelock Vitamin D deficiency E55.9 [facility] [address] [place], [place] [id number] 01/04/2025 Bola Havelock Assessments Encounter Date Diagnosis (ICD Code) Assessment Notes Treatment Notes Treatment Clinical Notes Section Notes 09/28/2024 Hearing loss, unspecified hearing loss type, unspecified laterality (ICD-10 - H91.90) 10/11/2024 Vitamin D deficiency (ICD-10 - E55.9) 10/08/2024 Mixed hyperlipidemia (ICD-10 - E78.2) 10/08/2024 Type 2 diabetes mellitus without complication (ICD-10 - E11.9) 04/12/2024 Type 2 diabetes mellitus without complication (ICD-10 - E11.9) 04/09/2024 Type 2 diabetes mellitus without complication (ICD-10 - E11.9) 04/05/2024 Type 2 diabetes mellitus without complication (ICD-10 - E11.9) 03/27/2024 Type 2 diabetes mellitus without complication (ICD-10 - E11.9) 04/09/2024 Essential hypertension (ICD-10 - I10) 06/09/2024 Type 2 diabetes mellitus without complication (ICD-10 - E11.9) 04/09/2024 Mixed hyperlipidemia (ICD-10 - E78.2) 10/08/2024 Essential hypertension (ICD-10 - I10) 10/08/2024 Vitamin D deficiency (ICD-10 - E55.9) 04/09/2024 Hypokalemia (ICD-10 - E87.6) 04/09/2024 Vitamin D deficiency (ICD-10 - E55.9) 10/08/2024 Prostate cancer screening (ICD-10 - Z12.5) 10/08/2024 Plasmacytoma, 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) Plan Of Treatment Next Appt Details Provider Name:Bola Arroyo ry, 04/13/2025 09:15:00 AM, [address], [address], [place], [id number], Insurance Providers Payer Name Payer Address Payer Phone Subscriber Number Group Number Insured Name Patient Relationship to Insured Coverage Start Date Coverage End Date [employer] [address] [place] [phone] [id number] JULISSA DOLAN Self - patient is the insured Medical (General) History Medical History History ICD Code Type 2 Diabetes Hypertension Hyperlipidemia Vitamin D Deficiency Erectile Dysfunction Declines colon cancer screening 2016 Multiple Myeloma, Dx: November,, s/p chemotherapy, radiation and autologous stem cell transplant Compression fracture, multiple, s/p kyph oplasty x 3 DVT, right leg, 2019 COVID 19 10/16/2020 Surgical History Surgery Date(Month/Year) Tonsillectomy Kyphoplasty x 3 2019 RT Heart Cath, PE 09/29/2023 Hospitalization History Reason Date(Month/Year) MRSA cellulitis of face 2009 Cough, Wheezing, SOA- [facility] ER 01/2019 Cancer Center for 14 days- [facility] 05/2019 Pulmonary Embolism- [facility] 09/29-01/2024
[2025-02-06 09:28] VITALS: BP 134/79; PULSE 90; RESP 20; TEMP 36.6; O2SAT 95; BMI 45.6
--- OUTSIDE RECORDS SUMMARY | 2025-02-06 09:28 | XMS_ITS | Encounter Summary ---
Author Organization [facility] Address [address] [place] [address] Care Team Providers Care Integrated Circuit Design Engineer Name Role Phone Bola Archuleta MD Primary Care Provider + [phone] Encounter Details Date Type Department Care Team (Latest Contact Info) Description 01/31/2025 Travel Social History Tobacco Use Types Packs/Day Years [...] CC Hematology/BMT and Cellular Therapy Program [address] [phone] 05/06/2025 11:30 AM EDT Office Visit [facility] Hematology/BMT and Cellular Therapy Program [address] [phone] Yolande Mccullough, SLOT OPERATIONS MANAGER 800 [facility] [address] [place] [phone] documented as of this encounter Visit Diagnoses Not on filedocumented in this encounter Additional Health Concerns Assessment Noted Time A fall risk assessment has been complete d for the patient 01/31/2025 11:18 AM EDT A Body Mass Index follow-up plan has been documented for the patient 01/31/2025 12:52 PM EDT documented as of this encounter Care Teams Integrated Circuit Design Engineer Relationship Specialty Start Date End Date Bola Archuleta MD [address] [place] [address] [place] [address] PCP - General 01/05/21 documented as of this encounter
--- OUTSIDE RECORDS SUMMARY | 2025-02-06 09:28 | XMS_ITS | Encounter Summary ---
Author Organization [facility] Address [address] [place] [address] Care Team Providers Care Data Base Administrator Name Role Phone Bola Archuleta MD Primary Care Provider + [phone] Reason for Visit * Reason Comments Med Refill Encounter Details Date Type Department Care Team ([facility] Contact Info) Description 02/19/2021 Refill [facility] Hematology/BMT and Cellular Therapy Program [address] [address] Facundo Jansen MD 800 [facility] [address] [place] [phone] Social History Tobacco Use Types Packs/Day Years Used Date Smoking Tobacco: Never Alcohol Use Standard Drinks/Week Comments Not Currently 0 (1 standard drink = 0.6 oz pur e alcohol) Sex and Gender Information Value Date Recorded Sex Assigned at Not on file Legal Sex Male 6:55 PM EDT Gender Identity Not on file Sexual Orientation Not on file COVID-19 Exposure Response Date Recorded In the last month, have you been in contact with someone who was confirmed or suspected to have Coronavirus / COVID-19? No / Unsure 02/02/2021 12:14 PM EDT documented as of this encounter Plan of Treatment Upcoming Encounters Date Type Department Care Team ([facility] Contact Info) Description 05/06/2025 11:00 AM EDT Clinical Support [facility] Hematology/BMT and Cellular Therapy Program [address] [phone] 05/06/2025 11:30 AM EDT Office Visit PAV CC Hematology/BMT and Cellular Therapy Program 750 [facility] [place] [address] Yolande Mccullough, PINION STAKER 800 [facility] [address] [place] [address] documented as of this encounter Visit Diagnoses Not on filedocumented in this encounter Additional Health Concerns Assessment Noted Time A fall risk assessment has been complete d for the patient 02/02/2021 12:23 PM EDT documented as of this encounter Care Teams Data Base Administrator Relationship Specialty Start Date End Date Bola Archuleta MD [address] [address] PCP - General 01/05/21 documented as of this encounter
--- OUTSIDE RECORDS SUMMARY | 2025-02-06 09:28 | XMS_ITS | Encounter Summary ---
Author Organization [facility] Address [address] [place] [address] Care Team Providers Care Leather Parts Matcher Name Role Phone Bola Archuleta MD Primary Care Provider + [phone] Reason for Visit * Reason Onset Date Comments Med Refill Med Refill 10/10/2021 Med Refill 10/12/2021 Encounter Details Date Type Department Care Team (Late st Contact Info) Description 10/02/2021 Refill [facility] CC Hematology/BMT and Cellular Therapy Program [address] [phone] Facundo Jansen MD 800 [facility] [address] [place] [phone] Social History Tobacco Use Types Packs/Day Years [...] have Coronavirus / COVID-19? No / Unsure 09/26/2021 7:42 AM EST documented as of this encounter Miscellaneous Notes * Telephone Encounter - Kylah Barajas 10/12/2021 9:18 AM EST bakery worker followed up with patient via phone after conferring with financial officer. director of health education recalls speaking with patient, but does not remember outcome of conversation. Patient wasadvised to contact financial officer again and ask to be enrolled in [facility] [employer] only. He was informed that likely there was some confusion regarding information. Patient and were both receptive andappreciative. * Telephone Encounter - StefanyhalinaCeden - 10/10/2021 4:29 PM EST Visit Type: PsychOncVT: Telephone Time Spent with Patient and/or Caregivers: Less than 15 minutes Services Provided: N/A Referrals: None Education: Financial Support/Aid Narrative: Patient contacted social media coordinator via phone to inquire about communication he has receivedin the mail from [employer] regarding end of award period of 11/22. bakery worker affirmed this information and explained that re-enrollment can occur on 11/23 as long as [employer] remains open. Patient also had questions about how to go about applying for [facility] [employer] as he was informed by colleague how this can supplement co-pay assistance program. He claims after speaking with financial officer Herrera he was informed he could not assist, but was unable to elaborate on rest of conversation. bakery worker will confer with Herrera and f/u with patient on next steps. documented in this encounter Plan of Treatment Upcoming Encounters Date Type Department Care Team (Late st Contact Info) Description 05/06/2025 11:00 AM EDT Clinical Support [facility] CC Hematology/BMT and Cellular Therapy Program [address] [place] [address] 05/06/2025 11:30 AM EDT Office Visit [facility] Hematology/BMT and Cellular Therapy Program [address] [place] [address] Yolande Mccullough, FINAL CIGAR AND BOX EXAMINER 800 [facility] [address] [place] [phone] documented as of this encounter Visit Diagnoses Not on filedocumented in this encounter Additional Health Concerns Assessment Noted Time A fall risk assessment has been complete d for the patient 09/26/2021 7:51 AM EST documented as of this encounter Care Teams Leather Parts Matcher Relationship Specialty Start Date End Date Bola Archuleta MD [facility] [address] [facility] [address] [place] [address] PCP - General 01/05/21 documented as of this encounter
--- OUTSIDE RECORDS SUMMARY | 2025-02-06 09:28 | XMS_ITS | Encounter Summary ---
Author Organization [facility] Address [address] [place] [address] Care Team Providers Care Taffy Candy Maker Name Role Phone Bola Archuleta MD Primary Care Provider + [phone] Encounter Details Date Type Department Care Team ([facility] Contact Info) Description 08/07/2022 Social Work Psych Oncology [address] [place] [phone] [place] [address] Social History Tobacco Use Types Packs/Day Years [...] CC Hematology/BMT and Cellular Therapy Program [address] [place] [phone] 05/06/2025 11:30 AM EDT Office Visit P[facility] CC Hematology/BMT and Cellular Therapy Program [address] [place] [phone] Yolande Mccullough, STRIP STAMP STRAIGHTENER 800 [facility] [address] [place] [address] [place] [phone] documented as of this encounter Visit Diagnoses Not on filedocumented in this encounter Additional Health Concerns Assessment Noted Time A fall risk assessment has been complete d for the patient 05/27/2022 9:16 AM EDT documented as of this encounter Care Teams Taffy Candy Maker Relationship Specialty Start Date End Date Bola Archuleta MD [address] [place] [phone] PCP - General 01/05/21 documented as of this encounter
--- OUTSIDE RECORDS SUMMARY | 2025-02-06 09:28 | XMS_ITS | Encounter Summary ---
Author Organization [facility] Address [address] [place] [address] Care Team Providers Care Stars Specialist Name Role Phone Bola Archuleta MD Primary Care Provider + [phone] Reason for Visit * Reason Comments Med Refill Encounter Details Date Type Department Care Team ([facility] Contact Info) Description 09/21/2021 Refill PAV CC Hematology/BMT and Cellular Therapy Program [address] [phone] Blaise Walsh MD 800 [facility] [address] [place] [phone] Social History Tobacco Use Types Packs/Day Years [...] have Coronavirus / COVID-19? No / Unsure 08/30/2021 1:37 PM EST documented as of this encounter Plan of Treatment Upcoming Encounters Date Type Department Care Team ([facility] Contact Info) Description 05/06/2025 11:00 AM EDT Clinical Support [facility] CC Hematology/BMT and Cellular Therapy Program [address] [place] [address] 05/06/2025 11:30 AM EDT Office Visit PAV Hematology/BMT and Cellular Therapy Program [address] [place] [address] Yolande Mccullough, QC CHEMIST 800 [facility] [address] [place] [phone] documented as of this encounter Visit Diagnoses Not on filedocumented in this encounter Additional Health Concerns Assessment Noted Time A fall risk assessment has been complete d for the patient 08/30/2021 2:40 PM EST documented as of this encounter Care Teams Stars Specialist Relationship Specialty Start Date End Date Bola Archuleta MD [facility] [address] [address] PCP - General 01/05/21 documented as of this encounter
--- OUTSIDE RECORDS SUMMARY | 2025-02-06 09:28 | XMS_ITS | Encounter Summary ---
Author Organization [facility] Address [address] [place] [address] Care Team Providers Care Photo Editor Name Role Phone Bola Archuleta MD Primary Care Provider + [phone] Reason for Visit * Reason Comments Med Refill Encounter Details Date Type Department Care Team ([facility] Contact Info) Description 09/21/2021 Refill PAV CC Hematology/BMT and Cellular Therapy Program [address] [phone] Facundo Jansen MD 800 [facility] [address] [place] [phone] Social History Tobacco Use Types Packs/Day Years [...] Hematology/BMT and Cellular Therapy Program [address] [place] [address] 05/06/2025 11:30 AM EDT Office Visit PAV Hematology/BMT and Cellular Therapy Program [address] [place] [address] Yolande Mccullough, MANAGER FINE DINING 800 [facility] [address] [place] [phone] documented as of this encounter Visit Diagnoses Not on filedocumented in this encounter Additional Health Concerns Assessment Noted Time A fall risk assessment has been complete d for the patient 08/30/2021 2:40 PM EST documented as of this encounter Care Teams Photo Editor Relationship Specialty Start Date End Date Bola Archuleta MD [facility] [address] [address] PCP - General 01/05/21 documented as of this encounter
--- NOTE | 2025-02-06 09:30 | ECG_ITS ---
APPROVED REPORT Exam: Resting ECG HR:90 bpm ECG Measurements Heart Rate 90 AXES WA 226 P 47 QRSd 121 QRS -39 QT 396 T 20 QTc 444 Conclusion SINUS RHYTHM WITH FIRST DEGREE AV BLOCK WITH OCCASIONAL SUPRAVENTRICULAR PREMATURE COMPLEXES LEFT AXIS DEVIATION [QRS AXIS < -30] POSSIBLE ANTERIOR MYOCARDIAL INFARCTION , PROBABLY OLD [30 ms Q WAVE IN V3/V4, OR R < 0.2 mV IN V4] No STEMI Electronically signed by : BRENDAN BALDWIN, 02/07/2025 03:55:48
--- NOTE | 2025-02-06 09:34 | PC.NURSE ---
Finger stick glucose 313
[2025-02-06 09:46] VITALS: BP 116/71; PULSE 94; RESP 18; O2SAT 94
[2025-02-06 09:53] LABS: Basophils # 0.1 K/mm3 (0-0.2); Basophils % 1.7 % (0.1-2.0); Eosinophils % 0.3 % (0.1-12.0); Hematocrit 40.5 % (42.0-52.0); Hemoglobin 13.9 g/dL (14.1-18.0); Immature Granulocytes # 0.04 10^3uL; Immature Granulocytes % 1.1 %; Lymphocytes # 0.4 K/mm3 (0.7-4.5); Lymphocytes % 11.1 % (10-50); Mean Corpuscular HGB Conc 34.3 g/dL (31.8-35.4); Mean Corpuscular Hemoglobin 29.4 pg (27.0-31.2); Mean Corpuscular Volume 85.8 fl (80-94); Mean Platelet Volume 10.4 fl (7.4-10.4); Monocytes # 0.4 K/mm3 (0.1-1.0); Monocytes % 11.6 % (1.7-9.3); Neutrophils # 2.6 K/mm3 (1.8-7.8); Neutrophils % 74.2 % (37.0-80.0); Nucleated Red Blood Cells # 0 10^3/uL; Nucleated Red Blood Cells % 0 %; Platelet Count 128 K/mm3 (142-424); Red Blood Count 4.72 M/mm3 (4.60-6.20); Red Cell Distribution Width 15.2 % (11.5-17.5); Red Cell Distribution Width-SD 47.7 fL; White Blood Count 3.5 K/mm3 (4.8-10.8)
[2025-02-06 10:00] VITALS: BP 114/74; PULSE 86; RESP 18; O2SAT 94
[2025-02-06 10:01] LABS: Alanine Aminotransferase 36 U/L (12-78); Albumin Level 3.6 g/dl (3.5-5.0); Albumin/Globulin Ratio 1.1 (1.1-1.8); Alkaline Phosphatase 58 U/L (38-126); Aspartate Amino Transferase 38 U/L (17-59); Blood Urea Nitrogen 12 mg/dl (9-20); Calcium 8.2 mg/dl (8.4-10.2); Carbon Dioxide 24 mmol/L (22.0-30.0); Chloride 103 mmol/L (98-107); Creatinine Clearance Estimated 75 mL/min (50-200); Estimated Glomerular Filt Rate 76 ml/min (>60); GFR (African American) 92 ML/MIN (>60); Globulin 3.2 g/dL (1.3-3.2); Glucose 333 mg/dl (74-100); Sodium 131 mmol/L (136-145); Total Protein,Serum 6.8 g/dl (6.3-8.2)
[2025-02-06] MEDS: FUROSEMIDE 40MG/4ML VIAL 40 MG IV (10:02)
[2025-02-06 10:03] LABS: Lyme Ab IgM CIA ND; Lyme IgG CIA ND; MANUAL DIFFERENTIAL MANUAL DIFFERENTIAL (MANUAL DIFF)
[2025-02-06] MEDS: POTASSIUM CHLORIDE 20MEQ TAB 60 MEQ PO (10:13)
[2025-02-06 10:30] VITALS: BP 122/71; PULSE 85; RESP 18; O2SAT 95
[2025-02-06 10:31] LABS: NT Pro Brain Natriuretic Pep. 446 pg/mL (0-125)
[2025-02-06 10:43] LABS: Troponin I < 0.01 ng/ml (0.00-0.034)
[2025-02-06 10:50] LABS: Lymphocytes % 16 % (10-50); Monocytes % 8 % (2-9); Neutrophils % 75 % (42-76); Platelet Estimate Slight Decrease; RBC Morphology Normal; Total Cells Counted 100
[2025-02-06 11:00] VITALS: BP 136/74; PULSE 87; O2SAT 98
--- NOTE | 2025-02-06 11:01 | HMH.EDGENADL ---
Discharge Plan Disposition Chief Complaint: Skin/Abscess/Foreign Body Prescriptions Prescriptions: No Action doxycycline hyclate 100 mg capsule 100 mg PO BID 10 Days Qty: 20 0RF dapagliflozin propanediol [Farxiga] 10 mg tablet 10 mg PO DAILY Patient Comments: TAKE 1 TABLET ONCE DAILY lisinopril-hydrochlorothiazide 20-25 mg tablet 1 tab PO DAILY Patient Comments: TAKE 1 TABLET DAILY pravastatin 40 MG tablet 40 mg PO HS glimepiride 4 MG tablet 8 mg PO DAILY amlodipine 5 MG tablet 5 mg PO DAILY cholecalciferol (vitamin D3) 1,000 UNIT capsule 2,000 unit PO DAILY lenalidomide 10 MG capsule 10 mg PO HS potassium chloride 20 MEQ tablet 20 meq PO DAILY insulin degludec [Tresiba FlexTouch U-100] 100 UNIT/ML insulin pen 15 units SQ BID tramadol 50 mg tablet 50 mg PO TID Qty: 270 0RF Jentadueto 2.5-1,000 mg tablet 1 tab PO BIDWMEAL Patient Comments: TAKE 1 TABLET BY MOUTH TWICE A DAY FOR 90 DAYS Xarelto 20 mg tablet 20 mg PO DAILY Qty: 90 1RF Referrals Follow up/Referrals: Bola Archuleta MD [Primary Care Provider, Medical] - See instructions Instructions Patient Instructions: DI for Skin Abscess Print Language Print Language: Sami Discharge ED Provider: Elba Keller General Adult HPI General Chief complaint: Skin/Abscess/Foreign Body Stated complaint: red/swollen tick bite, dizzy, disoriented, sweatin Time Seen by Provider: 02/06/25 09:17 Mode of Arrival: Ambulatory Source of Information: Patient and Spouse Description of Symptoms (Recalled from ER Triage Doc. by RN): pt is here for all over body aches, tick bite in ashlandy button x 1 week ago, area is red and swollen, pt has multiple mylemoa and gets treatments from . He went to [facility] yesterday and was prescribed tetracycline History of Present Illness HPI narrative: Emmett Pathak is a 59 y/o male presenting with body aches and tick bite. Patient is accompanied by his provides history at time. She reports noticing a tick that she describes as the size of a pen needle in the patient's bellybutton that she was able to remove. They are unsure how long the tick was on the patient's body or the exact date it bit him. His noticed redness to his navel yesterday and took him to the [facility] where he was prescribed doxycycline, but they were unable to pick it up as the pharamacy was closed. Pt now reporting myalgias and increased lower leg edema. He denies fevers, chills, arthralgias, rash, nausea, vomiting. Pt reports taking lasix as needed for his leg swelling and has not taken any today. Related Data Home Medications ?Medication ?Instructions ?Recorded ?Confirmed amlodipine 5 mg tablet 5 mg PO DAILY 10/30/18 02/05/25 glimepiride 4 mg tablet 8 mg PO DAILY Diabetes 10/30/18 02/05/25 pravastatin 40 mg tablet 40 mg PO HS Cholesterol 10/30/18 02/05/25 cholecalciferol (vitamin D3) 25 2,000 unit PO DAILY 02/10/19 02/05/25 mcg (1,000 unit) capsule lenalidomide 10 mg capsule 10 mg PO HS CHEMO 10/16/20 02/05/25 insulin degludec 100 unit/mL (3 15 units SQ BID Diabetes 10/17/20 02/05/25 mL) subcutaneous pen (Tresiba FlexTouch U-100 insulin) potassium chloride 20 mEq 20 meq PO DAILY 10/17/20 02/05/25 tablet,extended release(part/cryst) linagliptin 2.5 mg-metformin 1,000 1 tab PO BIDWMEAL 09/29/23 02/05/25 mg tablet (Jentadueto) dapagliflozin propanediol 10 mg 10 mg PO DAILY 10/08/24 02/05/25 tablet (Farxiga) lisinopril 20 1 tab PO DAILY 10/08/24 02/05/25 mg-hydrochlorothiazide 25 mg tablet Previous Rx's ?Medication ?Instructions ?Recorded rivaroxaban 20 mg tablet (Xarelto) 20 mg PO DAILY #90 tabs 09/30/23 tramadol 50 mg tablet 50 mg PO TID #270 tabs 12/11/23 doxycycline hyclate 100 mg capsule 100 mg PO BID 10 days #20 caps 02/05/25 Allergies Allergy/AdvReac Type Severity Reaction Status Date / Time No Known Allergies Allergy Verified 02/05/25 18:46 [facility] Disclaimer: The information contained in this section may have been updated after the patient was seen, as this information can be updated by other users. Medical History Hearing loss Right ventricular dilation History of DVT (deep vein thrombosis) HTN (hypertension) HLD (hyperlipidemia) Diabetes DVT (deep venous thrombosis) Cancer History of multiple myeloma Chronic pain syndrome COVID-19 Hypertension Pneumonia due to COVID-19 virus Surgical History H/O kyphoplasty Hx of tonsillectomy Family History Other Diabetes Heart attack Hyperlipidemia Hypertension Social History Smoking Status: Never smoker alcohol intake: never current occupational status: other Travel in the last 8 weeks?: None household members: spouse caffeine: Yes Have you lived/traveled outside US in past 30 days?: No Contact w/someone who lives/traveled outside US past 30 days?: No Exposure to someone with infectious disease in past 14 days?: No Do you have a fever (greater than 100.4 F or 38 C)?: No Have you tested positive for COVID-19?: No Exposed to someone with COVID-19 in past 14 days?: No Do you have a sore throat?: No Do you have a cough?: No Do you have any weakness?: Yes Do you have any diarrhea?: No Are you experiencing any unusual bleeding?: No Do you have any muscle aches/pain?: No Do you have any abdominal pain?: No Are you experiencing loss of taste or smell?: No Other Medical History Have you received the Flu Vaccine for this season: Yes Have you received the Pneumonia Vaccine: Yes ROS Obtained: Yes All systems reviewed & no additional complaints except as documented Physical Exam General General appearance: alert and in no apparent distress Head Head exam: atraumatic, normocephalic and normal inspection Eye Eye exam: Present normal appearance, PERRL and EOMI ENT ENT exam: Present normal exam, normal oropharynx, mucous membranes moist, TM's normal bilaterally and normal external ear exam Neck Neck exam: Present normal inspection, full ROM and trachea midline; Absent meningismus or lymphadenopathy Chest Chest inspection: Present normal inspection and symmetric chest wall rise; Absent tenderness Respiratory Respiratory exam: Present normal lung sounds bilaterally; Absent respiratory distress Cardiovascular Cardiovascular exam: Present regular rate and normal rhythm; Absent JVD Abdominal Exam Abdominal exam: Present soft and other (erythema of the navel with a focal pustule. No streaking erythema or area of fluctuance. ); Absent distention, tenderness or guarding Extremities Exam Extremities exam: Present normal inspection, full ROM and normal capillary refill; Absent calf tenderness Back Exam Back exam: Present normal inspection; Absent tenderness Neurological Exam Neurological exam: Present alert and oriented X3 Psychiatric Psychiatric exam: Present normal affect and normal mood Skin Skin exam: Present warm, dry, intact and normal color Lymphatic Lymphatic Findings: no adenopathy Medical Decision Making Medical Records Medical records reviewed: Yes I reviewed the patient's medical records. Screening: Per USPSTF and CDC recommendations, given the prevalence of disease in our region, it is our hospital?s policy to screen for HIV and viral Hepatitis for all patients aged 18 and over and those with ongoing risk factors. Zeyad Inquiry Pt receiving controlled substance: No Vital Signs: 02/06/25 09:28 02/06/25 09:46 02/06/25 10:00 Temperature 97.9 F Temperature Source Oral Pulse Rate 94 H 86 Pulse Rate [Left Radial] 90 Respiratory Rate 20 18 18 Blood Pressure 116/71 114/74 Blood Pressure [Right Arm] 134/79 Blood Pressure Mean 80 87 Blood Pressure Mean [Right Arm] 97 02 Sat by Pulse Oximetry 95 94 L 94 L Oxygen Delivery Method Room Air Trach Collar/ Tube 02/06/25 10:30 02/06/25 11:00 Temperature Temperature Source Pulse Rate 85 87 Pulse Rate [Left Radial] Respiratory Rate 18 Blood Pressure 122/71 136/74 Blood Pressure [Right Arm] Blood Pressure Mean 86 Blood Pressure Mean [Right Arm] 02 Sat by Pulse Oximetry 95 98 Oxygen Delivery Method Room Air Lab Data Lab results reviewed: Yes I reviewed the patient's lab results. Lab Results 02/06/25 09:41: WBC 3.5 L, RBC 4.72, Hgb 13.9 L, Hct 40.5 L, MCV 85.8, MCH 29.4, MCHC 34.3, RDW 15.2, Plt Count 128 L, MPV 10.4, Neut % (Auto) 74.2, Lymph % (Auto) 11.1, [place] % (Auto) 11.6 H, Eos % (Auto) 0.3, Baso % (Auto) 1.7, Neut # (Auto) 2.6, Lymph # (Auto) 0.4 L, [place] # (Auto) 0.4, Eos # (Auto) 0.0, Baso # (Auto) 0.1, Total Counted 100, Neutrophils % (Manual) 75, Lymphocytes % (Manual) 16, Monocytes % (Manual) 8, Basophils % (Manual) 1.0, Platelet Estimate Slight decrease, RBC Morphology Normal, Sodium 131 L, Potassium 3.0 L, Chloride 103, Carbon Dioxide 24, Anion Gap 7.0, BUN 12, Creatinine 1.00, Estimated Creat Clear 75, Estimated GFR 76, Est GFR ( Amer) 92, Glucose 333 H, Calcium 8.2 L, Total Bilirubin 1.0, AST 38, ALT 36, Alkaline Phosphatase 58, Troponin I < 0.01, NT-Pro-B Natriuret Pep 446 H, Total Protein 6.8, Albumin 3.6, Globulin 3.2, Albumin/Globulin Ratio 1.1 02/06/25 09:41 02/06/25 09:41 Orders (Tests/Meds): ED MEDICATIONS Discontinued Medications Generic Name Dose Route Start Last Admin Trade Name Freq PRN Reason Stop Dose Admin Furosemide 40 mg 02/06/25 09:53 02/06/25 10:02 Furosemide 40mg/4ml Vial IV 02/06/25 09:54 40 mg ONCE ONE Administration Potassium Chloride 60 meq 02/06/25 10:08 02/06/25 10:13 Potassium Chloride 20meq Tab PO 02/06/25 10:09 60 meq ONCE ONE Administration ORDERS Category Date Time Status BNP [NT Pro Brain Natriuretic Pep.] Stat Lab 02/06/25 09:41 Completed CBC w/Auto Diff [Complete Blood Count Auto Diff] Stat Lab 02/06/25 09:41 Completed CMP [Comprehensive Metabolic Panel] Stat Lab 02/06/25 09:41 Completed Lyme Ab, Modified 2-Tier Stat Lab 02/06/25 09:41 Received Lyme B. burgdorferi PCR Blood Stat Lab 02/06/25 09:41 Received Troponin I Stat Lab 02/06/25 09:41 Completed Medical Decision Narrative: In summary, this is a 59-year-old male presenting with multiple complaints. Differential diagnosis includes but not limited to, sepsis, dissemintated lyme, cellulitis, NSTI, viral illness, CHF exacerbation, among others. Pt has history of MM in remission and continues to receive transfusions at . His last transfusion was 6 days ago. Pt is unsure when the tick got on him, but based on the 's description of it's size, the tick was likely not present for very long, as it was not engorged. Pt has had no fevers, arthralgias, rash or additional evidence of disseminated Lyme. Pt evaluated with CBC, CMP, BNP, Trop, Lyme AB and PCR. Pt has increased lower leg edema and was given 40 mg IV. Patient's labs demonstrate leukopenia as expected. Hyponatremia (131), hyperglycemia and hypokalemia (replaced with oral potassium). Troponin <0.01, low concern for ACS. BNP slightly elevated at 446. EKG was sinus rhythm with 1st deg AV block. No QTC prolongation, no ST elevation/depression or evidence of acute ischemia. Pt was seen and prescribed the appropriate antibiotic to cover Lyme and Cellulitis. Patient's current presentation is most consistent with a localized cellulitis. Pt had not started the antibiotic as their pharmacy was closed at time of prescription yesterday. Pt otherwise HDS and in no distress. At this time, pt can safely be discharged home and follow-up with his PCP for re-evaluation in 3 days. Lyme AB and PCR will result in the next few days. Pt and given findings of his workup today, all questions answered, return precautions and F/U recs given. Pt discharged in stable condition. Elba Keller MD Critical Care Critical Care Time Critical Care Time: No
[2025-02-06 11:30] VITALS: BP 136/74; PULSE 88; RESP 17; TEMP 36.4; O2SAT 94
[2025-02-07 14:11] LABS: Lyme Ab CIA Negative (Negative)
[2025-02-09 12:14] LABS: Lyme B. burgdorferi PCR Blood Negative (Negative)
== END 2025-02-06 11:32 | disposition home or self-care (01) ==
PROVIDERS: Emergency Provider Student in an Organized Health Care Education/Training Program; PCP Family Medicine
DX: S70.362A Insect bite (nonvenomous), left thigh, initial encounter (principal); W57.XXXA Bitten or stung by nonvenomous insect and other nonvenomous arthropods, initial encounter; I10 Essential (primary) hypertension; E11.9 Type 2 diabetes mellitus without complications; E78.5 Hyperlipidemia, unspecified
CPT/HCPCS: 80053; 83880; 84484; 85007; 85025; 85027; 86618; 87476; 93005; 96374; 99284; J1938